=== PATIENT | male | born 1975 | race Caucasian/White ===

== ENCOUNTER 2020-01-04 07:04 | Inpatient (IN) | payer MEDICAID, SELFPAY ==
[2020-01-04] VITALS (29 sets, daily range): BP systolic 122–229; BP diastolic 38–137; PULSE 71–130; RESP 14–34; TEMP 36.1–36.8; O2SAT 77–99; BMI 26.4; BMI 24.7
--- NOTE | 2020-01-04 | XR_ITS ---
EXAMINATION: XR CHEST CLINICAL INFORMATION: Shortness of breath COMPARISON: Previous chest x-rays most recent 09/26/2019 TECHNIQUE: Frontal view of the chest was obtained. FINDINGS: The cardiac silhouette is enlarged but stable. Mediastinal contours are unremarkable. There is new bilateral perihilar airspace disease. Differential would include pulmonary edema, pneumonia and in the right clinical setting, pulmonary hemorrhage. There is no pleural effusion. Bony structures are unremarkable. IMPRESSION: Enlarged cardiac silhouette and bilateral perihilar airspace disease. Differential would include pulmonary edema, pneumonia and in the right clinical setting pulmonary hemorrhage.
--- NOTE | 2020-01-04 07:21 | ED_ITS ---
HPI - SOB/Dyspnea General Chief Complaint: Dyspnea Stated Complaint: diff breathing Time Seen by Provider: 01/04/20 07:21 Related Data Allergies Allergy/AdvReac Type Severity Reaction Status Date / Time heparin [HEPARIN] Allergy Intermediate NAUSEA/VOMI Verified 01/04/20 07:39 TING Penicillins [PENICILLINS] Allergy Intermediate SWELLING Verified 01/04/20 07:39 zolpidem [From AMBIEN] Allergy Mild SWELLING Verified 01/04/20 07:39 penicillin V Allergy Unknown swelling Verified 02/25/19 00:00 Review of Systems Review of Systems: Yes all other systems are reviewed and are negative Constitutional: Constitutional: Denies body ache(s), Denies daytime sleepiness, Denies excessive sweating, Denies headache(s), Denies night sweats and Denies poor appetite Eyes: Eyes: Denies change in vision ENT: Denies dizziness and Denies headache(s) Cardiovascular: Cardiovascular: Denies chest pain, Denies chest pain at rest, Denies chest pain with activity, Reports dyspnea on exertion and Reports paroxysmal nocturnal dyspnea Respiratory: Respiratory: Reports dyspnea on exertion Gastrointestinal: Gastrointestinal: Reports no additional gastrointestinal complaints Genitourinary: Genitourinary: Reports no additional male genitourinary complaints Neurologic: Reports Abnormal speech present, Denies dizziness and Denies headache(s) Endocrine: Endocrine: Denies excessive sweating [facility] Past Medical History [facility] Narrative: Hypertension. Orthostatic hypotension. Hyperparathyroidism. End-stage renal disease on dialysis, on Sunday, Sunday and Sunday. Source: old records reviewed Medical History (Updated 01/04/20 @ 08:27 by Prema Mo MD) End stage renal disease on dialysis Hypertension Social History Social History Alcohol intake: never Smoking Status: Light tobacco smoker Use of substances other than those prescribed or required for medical reasons: Yes Substance Use Type: Marijuana Advance Directives: No Advance Directives Information Provided: No Physical Exam Vital Signs and I&O and Narrative: Vital Signs and I&O: Vital Signs Temp 97.7 F 01/04/20 07:53 Pulse 89 01/04/20 08:41 Resp 26 H 01/04/20 08:41 BP 169/100 H 01/04/20 08:41 Pulse Ox 95 01/04/20 08:41 Intake & Output 01/03/20 01/04/20 01/04/20 18:59 06:59 18:59 Weight 81.4 kg Body Mass Index 26.4 Const: General: in distress, anxious and diaphoretic Orientation/conscio usness: oriented to person, oriented to place, oriented to time and patient oriented x3 HENMT: Head: Yes normal to inspection Ears: hearing grossly normal bilaterally General nose exam: Normal external nose present Eyes: General: appearance normal, both eyes and all related structures Neck: Neck: Yes JVD Chest: Chest palpation & inspection: normal inspection of the chest Resp: Effort & Inspection: respiratory distress, tachypneic and uses accessory muscles Auscultation: rales ( Up to 50% of the lung ordonez bilaterally) bilateral and wheezes ( expiratory wheezing diffuse bilaterally.) Cardio: Jugular venous distension: JVD Rate: tachycardic GI: Inspection: Yes normal to inspection Palpation (GI): Soft to palpation, nontender, no guarding, not rigid, no masses and no pulsatile masses Percussion: Yes normal to percussion : General: Yes no CVA tenderness Back/Spine/Pelvis: Back: no CVA tenderness Skin: General skin exam: no rashes or lesions noted Neuro: General: oriented to person, oriented to place, oriented to time, patient oriented x3 and gait normal Cranial nerves: Yes CN's II-XII intact bilaterally Cognition (Neuro): normal cognition Speech: Abnormal speech present Gait exam (Neuro): Normal gait present Motor exam (neuro): 5/5 m otor strength present throughout Extrem: General: Yes normal to inspection Right lower extremity: edema Details: 2+ Left lower extremity: edema Details: 2+ Course Course Hospital Course: 44-year-old male end-stage renal disease on dialysis, patient missed his dialysis 3 days ago, patient woke up with a sudden and rapid progression of shortness of breath, patient initially was diaphoretic, hypertensive, in acute respiratory distress. Patient was put immediately on BiPAP impending intubation, patient was given 1/2 inch of nitro on the left chest wall, since patient does not make urine Lasix was not given. Reevaluation(s) Reevaluation #1: Patient still in acute respiratory distress, diaphoretic, working to breathe, patient is still on BiPAP awaiting for superintendent custodian janitor to call me. Time: 07:30 Reevaluation #2: Slight improvement of respiratory distress, less diaphoretic, intercostal retraction still present, still on BiPAP machine. Time: 07:45 Reevaluation #3: patient is better, still on BiPAP, no diaphoresis, no tachypne a, satting 99% on the BiPAP. The case discussed with superintendent custodian janitor Dr. Mireles recommended to admit the patient to ICU until he get the dialysis team ready for acute dialysis The case also discussed with Dr. cuellar who accepted the patient to ICU. Time: 08:18 Consultations Consultation #1: Trigonometry Teacher, Dr. Johnson Time: :19 Consultation #2: ICU intensive care doctor marco. Time: 08:19 Procedures EJ/Peripheral Line Neck L: Time Out Performed: Yes Skin Cleansed in Sterile Fashion: Yes Size (gauge): 18 IV Secured and Dressing Applied: Yes Patient Tolerated Procedure: well MDM - SOB/Dyspnea MDM Narrative Medical decision making narrative: So 44-year-old male end-stage renal disease came in with volume overload and difficulty breathing needed emergency dialysis, patient was put on BiPAP in the emergency department and was given nitro, pat ient showed improvement without dialysis. Case discussed with superintendent custodian janitor / intensive care. Patient came in with shortness of breath due to volume overload and missing dialysis, patient is tachypneic, tachycardic, hypoxic, with leukocytosis however patient felt that all his symptoms is not due to sepsis rather it is fluid overload. 1. Admit to ICU awaiting emergent dialysis. 2. Continue with BiPAP. 3. continue with nitro paste on the left chest wall. Differential Diagnosis Differential diagnosis: Likely acute exacerbation of chronic obstructive airways disease, congestive heart failure, pneumonia and pleural effusion Lab Data Attestation: I reviewed the patient's lab results. Result diagrams: 01/04/20 07:30 01/04/20 07:30 Labs: Lab Results 01/04/20 01/04/20 01/04/20 Range/Units 07:30 07:30 07:30 WBC 14.9 H (4.8-10.8) X10*3/uL RBC 4.09 L (4.60-5.80) X10*6/uL Hgb 11.1 L (14.0-18.0) g/dl Hct 37.4 L (42-52) % MCV 91.4 (80-98) fL MCH 27.1 (27.0-33.0) pg MCHC 29.7 L (31.0-36.0) g/dl RDW 17.3 H (11.0-16.0) % Plt Count 212 (160-400) X10*3/uL MPV 9.7 (9.4-12.4) fL Absolute Nucleated RBC 0.000 (0.0-0.012) X10*3/uL Nucleated RBC % (auto) 0.0 (0.0-0.2) /100WBC Sodium 141 (135-145) mmol/L Potassium 4.6 (3.3-5.1) mmol/l Chloride 104 (96-108) mmol/L Carbon Dioxide 15 L (22-29) mmol/L Anion Gap 27 H (12-20) BUN 47 H (9-16) mg/dL Creatinine 11.59 H* (0.5-1.4) mg/dL Estim Creat Clear Calc 8.0 Estimated GFR 5 Random Glucose 200 H (60-115) mg/dL Calcium 7.4 L (8.4-10.2) mg/dL Troponin I High Sens 38.3 H (<3.5-35.0) ng/L B-Natriuretic Peptide 6797 H (<100) pg/mL Imaging Data Chest x-ray: My impression: MPRESSION: Enlarged cardiac silhouette and bilateral perihilar airspace disease. Differential would include pulmonary edema, pneumonia and in the right clinical setting pulmonary hemorrhage. ECG Data Attestation: I personally reviewed and interpreted this ECG as follows: ECG interpretation date: 01/04/20 ECG interpretation time: 08:24 Interpretation: sinus tachycardia at 127 beats per minutes, left axis deviation, normal intervals, no ST-T changes. Critical Care Time Critical Care Time Critical Care Time: Yes Total Critical Care Time: 70 Attestation: I have spent critical care time of 70 minutes at the bedside monitoring patient's vital sign, and breathing. Discharge Plan Discharge Clinical Impression: End stage renal disease on dialysis, Hypertension, Congestive heart failure Patient Disposition: Admitted As Inpatient
[2020-01-04] MEDS: Nitroglycerin 2 % Oint 1 GM Packet 0.5 INCH TRANSDERMA ×2 (07:35→17:43)
[2020-01-04 07:55] LABS: Hematocrit 37.4 % (42-52); Hemoglobin 11.1 g/dl (14.0-18.0); Mean Corpuscular HGB Conc 29.7 g/dl (31.0-36.0); Mean Corpuscular Hemoglobin 27.1 pg (27.0-33.0); Mean Corpuscular Volume 91.4 fL (80-98); Mean Platelet Volume 9.7 fL (9.4-12.4); Platelet Count 212 X10*3/uL (160-400); Red Blood Count 4.09 X10*6/uL (4.60-5.80); Red Cell Distribution Width 17.3 % (11.0-16.0); White Blood Count 14.9 X10*3/uL (4.8-10.8)
--- NOTE | 2020-01-04 08:07 | PC.NURSE ---
PT CONTACTED, GIVEN UPDATE PER PT REQUEST. WES PEÑA [phone]
[2020-01-04 08:16] LABS: Troponin-I High Sensitivity 38.3 ng/L (<3.5-35.0)
[2020-01-04 08:17] LABS: Anion Gap 27 (12-20); Blood Urea Nitrogen 47 mg/dL (9-16); Calcium 7.4 mg/dL (8.4-10.2); Carbon Dioxide 15 mmol/L (22-29); Chloride 104 mmol/L (96-108); Estimated Glomerular Filt Rate 5; Glucose Random 200 mg/dL (60-115); Potassium 4.6 mmol/l (3.3-5.1); Sodium 141 mmol/L (135-145)
[2020-01-04 08:32] LABS: B Type Natriuretic Peptide 6797 pg/mL (<100)
--- NOTE | 2020-01-04 09:54 | MHC.CM.PN ---
pt lives alone in [facility]. he reports he is independent in his care. he is HD - m,w,f. he has HD- M,W,F. he has family that lives in the area and can help him should he need it, this will include a ride home at ar. pt denies the need for vna at ar. dc plan is home c cont. of HD - m,w,f. cm to cont. to follow.
[2020-01-04] MEDS: Morphine Sulfate 2 MG/ML CARTRIDGE IVPUSH (10:18)
--- NOTE | 2020-01-04 10:39 | PM.PNNEP ---
Physical Exam Vital Signs and I&O and Narrative: Vital Signs and I&O: Vital Signs Temp 98.0 F 01/04/20 09:13 Pulse 87 01/04/20 10:00 Resp 26 H 01/04/20 10:00 BP 168/105 H 01/04/20 10:00 Pulse Ox 95 01/04/20 10:00 Intake & Output 01/03/20 01/04/20 01/04/20 18:59 06:59 18:59 Intake Total 0 / 0 Output Total 0 / 0 Balance 0 / 0 Urine Output (Aver age ml/kg/hr) 0.00 Weight 73.9 kg Intake: Intake, Oral [place] unt 0 / 0 Output: Output, Urine Am ount 0 / 0 on BiPAP neck no JVP noted lungs crackles bilaterally s1s2 abd soft ext +edema, LUE AVF Body Mass Index 24.7 Assessment & Plan Assessment and plan (1) End stage renal disease on dialysis: Status: Acute (2) Congestive heart failure: Status: Acute (3) Hypertension: Status: Acute Assessment and Plan: urgent HD today via AVF HD nurse aware pt being tx to ICU for care dw ICU team malignant HTN CHF in a ESRD pt will plan for HD tomorrow as well on his regular schedule. HTN control, add IV HYdralazine to vasodilators consider new echo card and cardiology eval. Time Spent With Patient Time: Total time spent is greater than 50% in coordination of care (as documented) at patient's floor/unit and/or counseling patient:
[2020-01-04] MEDS: Flu Vacc QS2020-21(6mos up)/PF 0.5 ML SYRINGE IM (13:20)
--- NOTE | 2020-01-04 14:36 | PM.CCPN ---
Subjective Subjective Date of Service: 01/04/20 Interval History: [facility] Physical Exam Vital Signs and I&O and Narrative: Vital Signs and I&O: Vital Signs Temp 98.0 F 01/04/20 09:13 Pulse 72 01/04/20 14:00 Resp 15 01/04/20 14:00 BP 175/100 H 01/04/20 14:00 Pulse Ox 98 01/04/20 14:00 Intake & Output 01/03/20 01/04/20 01/04/20 18:59 06:59 18:59 Intake Total 0 / 0 Output Total 0 / 0 Balance 0 / 0 Urine Output (Aver age ml/kg/hr) 0.00 Weight 73.9 kg Intake: Intake, Oral [place] unt 0 / 0 Output: Output, Urine Am ount 0 / 0 Other: Meal Refused No Body Mass Index 24.7 Objective Data Labs CBC & Chem 7: 01/04/20 07:30 01/04/20 07:30 Labs: Laboratory Results - last 24 hr 01/04/20 01/04/20 01/04/20 07:30 07:30 07:30 WBC 14.9 H RBC 4.09 L Hgb 11.1 L Hct 37.4 L MCV 91.4 MCH 27.1 MCHC 29.7 L RDW 17.3 H Plt Count 212 MPV 9.7 Absolute Nucleated RBC 0.000 Nucleated RBC % (auto) 0.0 Sodium 141 Potassium 4.6 Chloride 104 Carbon Dioxide 15 L Anion Gap 27 H BUN 47 H Creatinine 11.59 H* Estim Creat Clear Calc 8.0 Estimated GFR 5 Random Glucose 200 H Calcium 7.4 L Troponin I High Sens 38.3 H B-Natriuretic Peptide 6797 H Progress Note: A&P Time Spent With Patient Time: Total time spent is greater than 50% in coordination of care (as documented) at patient's floor/unit and/or counseling patient:
--- NOTE | 2020-01-04 14:40 | PM.CCHP ---
History of Present Illness Date of Service: 01/04/20 Chief Complaint: Hypertensive crisis with acute pulmonary edema and acute resp failure. Mr. Rj Pack was admitted to ICU this morning with hypertensive crisis and pulmonary edema with acute respiratory failure after missing his dialysis session yesterday. The patient is a 44-year-old man with end-stage renal failure on dialysis via a left arm fistula. He has a h/o dialysis noncompliance and has had multiple previous episodes of acute pulmonary edema. The patient tells me he was supposed to have dialysis yesterday morning. The transport van was supposed to pick him up at 05:00, but did not come to get him until 17:00 yesterday so therefore he missed his dialysis session. He woke up this morning with sudden rapid progression of shortness of breath. The ambulance was called and he was brought into the ED. In the emergency department, the patient was in respiratory distress. Blood pressure was 229/131, with heart rate 128. The patient was diaphoretic, tachypneic, and using accessory muscles, with rales half up bilaterally and expiratory wheezes. He had jugular venous distension. The BNP was 6797. Chest x-ray showed gross pulmonary edema. The patient was put immediately on BiPAP pending intubation and was given 1/2 inch of nitropaste. He gradually improved, and his BP came down into the 150?s-170?s. He was tx to the ICU, where he underwent a full dialysis session. 5 L were taken off. After dialysis, we took the patient off BiPAP and he was breathing easy on 2 L oxygen by nasal cannula. Sat is 95-97%. See vital signs below. The patient was fully alert and oriented, and was able to give me a good history. The patient has no jugular venous distension, sitting up at about 40 degrees. Chest clear to auscultation other than a few scattered crackles. Heart rate and rhythm are regular, with normal-sounding S1 and S2, possible S4. Otherwise no murmurs. Abdomen is benign. The patient has no peripheral edema. LABORATORY DATA: As below. IMPRESSION: 1. End-stage renal failure, on hemodialysis. Non compliant with his hemodialysis regimen. 2. Hypertensive crisis. We?ll give him a dose of hydralazine and restart his amlodipine and Coreg. 3. Acute pulmonary edema/CHF. Rx with HD and afterload reduction. Nitrates prn. He?ll have another HD session tomorrow. 4. Acute hypoxemic respiratory failure. Resolved post-HD. Otherwise usual supportive care. Critical care time: 65 minutes. Review of Systems Constitutional: Constitutional: Denies headache(s) ENT: Denies dizziness and Denies headache(s) Neurologic: Reports Abnormal speech present, Denies dizziness and Denies headache(s) [facility] Past Medical History Medical History (Updated 01/04/20 @ 08:27 by Prema Mo MD) End stage renal disease on dialysis Hypertension Social History Social History Household Members: None Housing: Other Housing Other:: RENTS A ROOM Do you presently have visiting nurse or other home services: No Alcohol intake: never Smoking Status: Light tobacco smoker Smoked in Last 30 Days: Yes Patient Interested in Nicotine Replacement: No Patient Given Instructions on How to Stop Smoking: No Second Hand Smoke Exposure: No Use of substances other than those prescribed or required for medical reasons: Yes Substance Use Type: Marijuana Currently Displaying Signs/Symptoms of Drug Intoxication Withdrawal: No Any prior treatment program specific to substance use: No Have you been hit, kicked, punched, or otherwise hurt by someone within the past year? If so, by whom?: No Do you feel safe in your current relationship?: Yes Is there a partner from a previous relationship who is making you feel unsafe now?: No Are you made to feel afraid or neglected: No Advance Directives: No Advance Directives Information Provided: No Advance Directives on File: No Do you have thoughts of harming others: None Recently lost weight without trying: No service: No Current occupational status: unemployed Meds Allergies Allergy/AdvReac Type Severity Reaction Status Date / Time Penicillins [PENICILLINS] Allergy Intermediate SWELLING Verified 01/04/20 07:39 zolpidem [From AMBIEN] Allergy Mild SWELLING Verified 01/04/20 07:39 penicillin V Allergy Unknown swelling Verified 02/25/19 00:00 heparin [HEPARIN] AdvReac Intermediate NAUSEA/VOMI Verified 01/04/20 20:10 TING Home Medications Medication Instructions Recorded Confirmed Type albuterol sulfate [ProAir HFA] 2 puff INHALATION QID 01/04/20 01/04/20 History amlodipine 5 mg PO DAILY 01/04/20 01/04/20 History aspirin 81 mg PO DAILY 01/04/20 01/04/20 History carvedilol 25 mg PO BID 01/04/20 01/04/20 History famotidine 20 mg PO BID 01/04/20 01/04/20 History ropinirole 4 mg PO BEDTIME 01/04/20 01/04/20 History Physical Exam Vital Signs and I&O and Narrative: Vital Signs and I&O: Vital Signs Temp 98.0 F 01/04/20 09:13 Pulse 72 01/04/20 14:00 Resp 15 01/04/20 14:00 BP 175/100 H 01/04/20 14:00 Pulse Ox 98 01/04/20 14:00 Intake & Output 01/03/20 01/04/20 01/04/20 18:59 06:59 18:59 Intake Total 0 / 0 Output Total 0 / 0 Balance 0 / 0 Urine Output (Aver age ml/kg/hr) 0.00 Weight 73.9 kg Intake: Intake, Oral [place] unt 0 / 0 Output: Output, Urine Am ount 0 / 0 Other: Meal Refused No Body Mass Index 24.7 Neuro: Speech: Abnormal speech present Results Labs Labs: Laboratory Tests 01/04/20 01/04/20 01/04/20 07:30 07:30 07:30 WBC 14.9 H RBC 4.09 L Hgb 11.1 L Hct 37.4 L MCV 91.4 MCH 27.1 MCHC 29.7 L RDW 17.3 H Plt Count 212 MPV 9.7 Absolute Nucleated RBC 0.000 Nucleated RBC % (auto) 0.0 Sodium 141 Potassium 4.6 Chloride 104 Carbon Dioxide 15 L Anion Gap 27 H BUN 47 H Creatinine 11.59 H* Estim Creat Clear Calc 8.0 Estimated GFR 5 Random Glucose 200 H Calcium 7.4 L Troponin I High Sens 38.3 H B-Natriuretic Peptide 6797 H Critical Care Time Critical Care Time (minutes): 60
[2020-01-04] MEDS: Acetaminophen 325 MG TABLET 975 MG PO (15:22)
[2020-01-04] MEDS: HYDROmorphone HCl 0.5 MG/0.5 ML SYRINGE IVPUSH (15:23)
[2020-01-04] MEDS: 0.9 % Sodium Chloride Flush 3 ML SYRINGE 2 ML IVFLUSH (15:23)
[2020-01-04] MEDS: carvediloL 25 MG TABLET PO ×2 (15:23→20:20)
[2020-01-04] MEDS: amLODIPine Besylate 5 MG TABLET PO (15:23)
[2020-01-04] MEDS: hydrALAZINE HCl 20 MG/ML VIAL IVPUSH (15:39)
--- NOTE | 2020-01-04 17:33 | ECG_ITS ---
Test Reason : ?ST DEPRESSION Blood Pressure : / mmHG Vent. Rate : 079 BPM Atrial Rate : 079 BPM P-R Int : 168 ms QRS Dur : 108 ms QT Int : 508 ms P-R-T Axes : 045 -65 174 degrees QTc Int : 582 ms Normal sinus rhythm Possible Left atrial enlargement Left anterior fascicular block Marked T-wave abnormality, consider inferolateral ischemia Prolonged QT Abnormal ECG When compared with ECG of 04-JAN-2020 07:15, Vent. rate has decreased BY [address] now depressed in Lateral leads T wave inversion now evident in Inferior leads T wave inversion more evident in Anterolateral leads Referred By: Steven Cadena Electronically Signed By:KEM KINGSTON
--- NOTE | 2020-01-04 17:44 | PC.NURSE ---
? WORSENING ST DEPRESSION ON MONITOR - PATIENT ASLEEP AT THIS TIME - LALY PEREZ NOTIFIED - EKG ORDERED AND OBTAINED AND SEEN BY ANA RUFFIN - AUDREY AND TROP ORDERED STAT - NITRO 2% OINTMENT 0.5 APPLIED TO LEFT UPPER CHEST. PATIENT REPORTS NO CHEST DISCOMFORT WHEN AWOKEN FOR EKG. PATIENT CURRENTLY ASLEEP, SNORING. VSS - BP 129/73 (91), HR 76, 96% 2L NC, RR 18. PHLEBOTOMY NOTIFIED OF STAT LAB WORK. WILL CONTINUE TO MONITOR.
--- NOTE | 2020-01-04 18:46 | P.PNCC_ITS ---
Critical Care Event Note Summary Code activated: No Narrative: SubjectiveAround 6:00 p.m. this evening, the patient's nurse expressed her concern about the patient having diffuse T-wave inversions on the monitor. Upon review, it appears that the patient has had these all throughout the morning on the rhythm strips, however this appears to be a new change in comparison to the EKG that was obtained in the emergency room around 7:00 a.m. this morning. The patient who has a history of renal disease and is status post dialysis today, history of hypertension, hyperlipidemia and whose mother had a heart attack at age 56, reports no prior history of coronary disease. He does however mention that he has been having chest pain since 9:00 a.m. this morning localized on the right side, described as dull and achy as if somebody punched him, rated 5/10 at its worse, no nausea or vomiting, no arm or jaw pain, no back pain, no cough or sputum production. Has never had a blood clot in his legs or lungs. He did not take any medications to make it better or worse. Objective Current vital signs blood pressure 137/82, heart rate 76, respiratory rate 18,O2 sat 97% on room air, General: Alert oriented x3 no acute distress Skin: Intact, no lesions or rash HEENT: Normocephalic, atraumatic, extraocular movements intact, neck is supple, no lymphadenopathy. Buccal mucosa moist. Throat midline. Cardiac: Clear S1-S2, There is a 3+ systolic murmur noted at the left upper sternal border. No rubs or gallops.There is no reports of chest pain to palpation of the right or left chest wall. No pain with range of motion of the arms. Pulmonary: Clear to auscultation, no wheezes, rales or rhonchi. Abdomen: Protuberant, positive bowel sounds in all 4 quadrants. Soft, nontender, no rebound or guarding. No CVA tenderness. Musculoskeletal: Moving all 4 extremities upon request a major joints, no calf tenderness, no edema. Neurologic: As above, no focal deficits. Vascular: 2+ pulses upper and lower extremities distally. Repeat EKG shows SR, 79 bpm, no ST elevations, but there are slight depressions and diffuse T-wave inversions in the lateral leads which are new from the EKG from this morning at 7 am. Assessment / Plan: EKG changes and ongoing right side CP ====> r/o ACS his initial troponin in the emergency room was 38, now 137 after HD; this can be due to the hypert ensive emergency and fluid overload. Repeat troponin in 3 hours. Chemistry does not show any hyperkalemia. Baseline PTT will be ordered in case the patient needs anticoagulation. Patient is on nitroglycerin paste, aspirin, Coreg. I will give him a statin and consult Cardiology 0800 pm case discussed with the implementation lead Dr. Elise who agrees with the above, advices on continuing the above medications and if the repeat troponin shows another significant increase and the pt is still having CP, then he would support starting this patient on anticoagulation therapy. It is likely that the patient suffered a secondary OH but unlikely ACS. Bedside echo reveals slight akinesis of the right side of the heart. Left ventricular hypertrophy. 2+ tricuspid regurgitation. 1007 Repeat troponin is 141.2. Patient's current chest pain level is 0 to a 1, he states that at times he could feel a but the majority of the time is gone. The patient is still on nitroglycerin paste and blood pressure is now 139/84, heart rate 74, respirations 20, O2 sat 96% on room air. At this point I will hold off on heparin drip, it is likely that the patient simply had a secondary event due to fluid overload and hypertensive crisis. Case discussed with Dr. Nance who is aware of the above. Critical care time: 30 - 74 mins
[2020-01-04 19:04] LABS: Anion Gap 17 (12-20); Blood Urea Nitrogen 26 mg/dL (9-16); Calcium 7.5 mg/dL (8.4-10.2); Carbon Dioxide 27 mmol/L (22-29); Chloride 100 mmol/L (96-108); Creatinine Clr Calc Pharmacy 11.3; Estimated Glomerular Filt Rate 7; Glucose Random 144 mg/dL (60-115); Potassium 3.6 mmol/l (3.3-5.1); Sodium 140 mmol/L (135-145)
[2020-01-04 19:05] LABS: Troponin-I High Sensitivity 137.1 ng/L (<3.5-35.0)
[2020-01-04] MEDS: Acetaminophen 325 MG TABLET 650 MG PO (20:18)
[2020-01-04] MEDS: rOPINIRole HCL 2 MG TABLET 4 MG PO (20:19)
[2020-01-04] MEDS: Famotidine 20 MG TABLET PO (20:19)
[2020-01-04] MEDS: Atorvastatin Calcium 80 MG TABLET PO ×2 (20:26→21:30)
[2020-01-04 21:27] LABS: PTT Heparin Drip 41.3 SEC (53-77.9)
[2020-01-04 22:04] LABS: Troponin-I High Sensitivity 141.2 ng/L (<3.5-35.0)
[2020-01-05] VITALS (24 sets, daily range): BP systolic 125–175; BP diastolic 71–96; PULSE 64–84; RESP 13–24; TEMP 36.4–36.7; O2SAT 95–100; BMI 23.8
[2020-01-05] MEDS: 0.9 % Sodium Chloride Flush 3 ML SYRINGE 2 ML IVFLUSH ×3 (00:26→14:39)
[2020-01-05 05:41] LABS: Basophils Percent Auto 0.3 % (0-2); Hematocrit 30.8 % (42-52); Imm Gran Abs Auto 0.01 X10*3/uL (0.00-0.03); Imm Gran Pct Auto 0.1 % (0.0-0.4); Neutrophils Absolute Auto 5.8 X10*3/uL (2.0-8.3); PLT CLUMP 1; Red Cell Distribution Width 17.2 % (11.0-16.0); SCAN SMEAR FLAG 1
[2020-01-05 05:42] LABS: Eosinophils Absolute Auto 0.1 X10*3/uL (0.0-0.4); Eosinophils Percent Auto 1.2 % (0-4); Hemoglobin 9.8 g/dl (14.0-18.0); Lymphocytes Absolute Auto 0.8 X10*3/uL (1.2-4.9); Lymphocytes Percent Auto 10.2 % (20-40); Mean Corpuscular HGB Conc 31.8 g/dl (31.0-36.0); Mean Corpuscular Hemoglobin 27.1 pg (27.0-33.0); Mean Corpuscular Volume 85.3 fL (80-98); Mean Platelet Volume 9.2 fL (9.4-12.4); Monocytes Absolute Auto 0.7 X10*3/uL (0.1-1.2); Monocytes Percent Auto 9.1 % (2-11); Neutrophils Percent Auto 79.1 % (45-73); Platelet Count 157 X10*3/uL (160-400); Red Blood Count 3.61 X10*6/uL (4.60-5.80); White Blood Count 7.4 X10*3/uL (4.8-10.8)
[2020-01-05 05:45] LABS: MANUAL DIFF FLAG NO
[2020-01-05 06:06] LABS: Anion Gap 16 (12-20); Blood Urea Nitrogen 36 mg/dL (9-16); Calcium 7.1 mg/dL (8.4-10.2); Carbon Dioxide 26 mmol/L (22-29); Chloride 101 mmol/L (96-108); Creatinine Clr Calc Pharmacy 9.4; Estimated Glomerular Filt Rate 6; Glucose Fasting 99 mg/dL (60-99); Potassium 3.8 mmol/l (3.3-5.1); Sodium 139 mmol/L (135-145)
[2020-01-05 06:16] LABS: Troponin-I High Sensitivity 115.1 ng/L (<3.5-35.0)
--- NOTE | 2020-01-05 08:00 | ECG_ITS ---
Test Reason : RESP DISTRESS Blood Pressure : / mmHG Vent. Rate : 127 BPM Atrial Rate : 127 BPM P-R Int : 136 ms QRS Dur : 110 ms QT Int : 416 ms P-R-T Axes : 024 -65 083 degrees QTc Int : 604 ms Sinus tachycardia Possible Left atrial enlargement Left axis deviation Abnormal ECG When compared with ECG of 26-SEP-2019 16:52, Heart rate has decreased ST no longer depressed in Inferior leads Referred By: Steven Cadena Electronically Signed By:KEM KINGSTON
--- NOTE | 2020-01-05 08:46 | PM.PNNEP ---
Subjective Subjective Principal diagnosis: cardiorenal sydrome Interval history: seen on dialysis this am and feeling better. 5L UF yesterday, breathing better, no need for NiPPV at this time. Physical Exam Vital Signs and I&O and Narrative: Vital Signs and I&O: Vital Signs Temp 97.9 F 01/05/20 07:46 Pulse 78 01/05/20 07:46 Resp 22 H 01/05/20 07:46 BP 151/87 H 01/05/20 07:46 Pulse Ox 96 01/05/20 07:46 Intake & Output 01/04/20 01/05/20 01/05/20 18:59 06:59 18:59 Intake Total 320 / 1500 1180 / 1500 180 / 180 Output Total 5000 / 5700 700 / 5700 Balance -4680 / -4200 480 / -4200 180 / 180 Urine Output (Aver age ml/kg/hr) 0.00 0.79 0.82 Weight 73.9 kg 71 kg Intake: Intake, Oral [place] unt 320 / 1500 1180 / 1500 180 / 180 Intake, Oral Sup plement Amount 0 / 0 Output: Output, Urine Am ount 0 / 700 700 / 700 Output, Other Am ount 5000 / 5000 Other: Meal Refused No NPO No Dinner % Eaten 100% 100% Evening Snack % Eaten 100 Diabetic Snack % Eaten 25 Urine ANURIC Urine Color ANURIC Last Bowel Movem ent 01/04/20 Body Mass Index 23.8 Const: General: cooperative and comfortable HENMT: Head: Yes normal to inspection Mouth: Normal oral and palatal mucosa present Eyes: Pupils: Pupil accommodation reflex normal Neck: Neck: Yes normal visual inspection and Yes JVD Chest: Chest palpation & inspection: normal inspection of the chest Resp: Effort & Inspection: normal respiratory effort Auscultation: diminished lung sounds Cardio: Jugular venous distension: JVD Heart sounds: S1 normal heart sound present and S2 normal heart sound present Bruits: no abdominal aortic bruits and no renal bruits Peripheral pulses: Peripheral pulses 2+ throughout GI: Palpation (GI): No Abdominal aortic bruit present, Soft to palpation and nontender Skin: Lesions: no lesions Extrem: General: Yes pedal edema Assessment & Plan Assessment and plan (1) End stage renal disease on dialysis: Problem details: m/w/f schedule Left arm AVF admit acute volume overload - 5 liter UF Sunday, likely another 4-5 liters today - BP improving but consider increasing amlodipine to 10 mg daily - will speak with dialysis unit regarding UF rates and what we can do to work with him better. Same issue with transplant status will be reviewed by me (for outpatient purposes) - if bp and volume ok after treatment today, would be ok with discharge once you are ok with cardiac assessment Status: Acute (2) Congestive heart failure: Problem details: clinically improving please see above Status: Acute (3) Hypertension: Problem details: given low EF history, would be fine with changing CCB to AUBREY inhibitor Status: Acute Time Spent With Patient Time: Total time spent is greater than 50% in coordination of care (as documented) at patient's floor/unit and/or counseling patient: Time with patient: 25 - 35 minutes
--- NOTE | 2020-01-05 09:19 | MHC.CLN ---
will change diet to 2gm Na Low K+, Low phos per Renal
--- NOTE | 2020-01-05 09:56 | PM.CCPN ---
Subjective Subjective Date of Service: 01/05/20 Interval History: 44-year-old male with end-stage renal disease and chronic hemodialysis for 9 years missed dialysis on Sunday was admitted in pulmonary edema obviously short of breath on Sunday and is receiving his 2nd dialysis today and has already had more than 5 L of volume removed and today is asymptomatic bedside echocardiogram shows mild concentric left ventricular hypertrophy with moderate to moderately severe global hypokinesis consistent with congestive cardiomyopathy an ejection fraction estimated 25-30% and no evidence of primary valve disease but clear-cut diastolic dysfunction as well as reduced systolic reserve Physical Exam Vital Signs and I&O and Narrative: Vital Signs and I&O: Vital Signs Temp 97.9 F 01/05/20 07:46 Pulse 67 01/05/20 09:00 Resp 17 01/05/20 09:00 BP 166/92 H 01/05/20 09:00 Pulse Ox 98 01/05/20 09:00 Intake & Output 01/04/20 01/05/20 01/05/20 18:59 06:59 18:59 Intake Total 320 / 1500 1180 / 1500 180 / 180 Output Total 5000 / 5700 700 / 5700 Balance -4680 / -4200 480 / -4200 180 / 180 Urine Output (Aver age ml/kg/hr) 0.00 0.79 0.82 Weight 73.9 kg 71 kg Intake: Intake, Oral [place] unt 320 / 1500 1180 / 1500 180 / 180 Intake, Oral Sup plement Amount 0 / 0 Output: Output, Urine Am ount 0 / 700 700 / 700 Output, Other Am ount 5000 / 5000 Other: Meal Refused No NPO No Dinner % Eaten 100% 100% Evening Snack % Eaten 100 Diabetic Snack % Eaten 25 Urine ANURIC Urine Color ANURIC Last Bowel Movem ent 01/04/20 Body Mass Index 23.8 awake and alert in no distress and on dialysis pupils equal and reactive to light with full range of motion no neck vein distension and good bilateral carotid upstrokes with no bruits good peripheral pulses with no edema cardiac exam with normal S1 normal S2 no heaves no gallops chest percussed equally with normal breath sounds no adventitious sounds abdomen benign with good bowel sounds and no organomegaly and it is nontender nondistended Const: General: cooperative, comfortable and no acute distress Nutritional Appearance: well nourished Orientation/consciousness: oriented to person, oriented to place and oriented to time HENMT: Head: Yes normal to inspection and Yes atraumatic Ears: hearing grossly normal bilaterally Eyes: General: appearance normal, both eyes and all related structures Pupils: Equal, round and reactive pupils present Neck: Neck: Yes full ROM and Yes no lymphadenopathy Carotids: normal carotid upstroke Lymphatic: no lymphadenopathy noted Chest: Chest palpation & inspection: normal inspection of the chest Resp: Effort & Inspection: normal respiratory effort Auscultation: clear to auscultation bilaterally Percussion: percussion normal Cardio: Jugular venous distension: no JVD Palpation: normal PMI Rate: regular rate Rhythm: regular rhythm Heart sounds: S1 normal heart sound present and S2 normal heart sound present Peripheral pulses: Peripheral pulses 2+ throughout GI: Inspection: Yes normal to inspection Palpation (GI): No hepatosplenomegaly present Percussion: No normal to percussion Auscultation: normal bowel sounds Skin: General skin exam: no rashes or lesions noted Neuro: General: oriented to person, oriented to place and oriented to time Cranial nerves: Yes CN's II-XII intact bilaterally, Yes Equal, round and reactive pupils present and Yes Bilaterally intact EOM present Extrem: General: Yes full ROM Left upper extremity: normal to inspection and full ROM Objective Data Labs CBC & Chem 7: 01/05/20 05:29 01/05/20 05:29 Labs: Laboratory Results - last 24 hr 01/04/20 01/04/20 01/04/20 18:16 18:16 21:07 WBC RBC Hgb Hct MCV MCH MCHC RDW Plt Count MPV Immature Gran % (Auto) Neut % (Auto) Lymph % (Auto) [place] % (Auto) Eos % (Auto) Baso % (Auto) Neut # (Auto) Lymph # (Auto) [place] # (Auto) Eos # (Auto) Baso # (Auto) Abs Immat Gran (auto) Absolute Nucleated RBC Nucleated RBC % (auto) PTT (Heparin Protocol) Sodium 140 Potassium 3.6 D Chloride 100 Carbon Dioxide 27 Anion Gap 17 BUN 26 H Creatinine 7.96 H* Estim Creat Clear Calc 11.3 Estimated GFR 7 Random Glucose 144 H Fasting Glucose Calcium 7.5 L Troponin I High Sens 137.1 H D 141.2 H 01/04/20 01/05/20 01/05/20 21:07 05:28 05:29 WBC 7.4 RBC 3.61 L Hgb 9.8 L Hct 30.8 L MCV 85.3 D MCH 27.1 MCHC 31.8 RDW 17.2 H Plt Count 157 L D MPV 9.2 L Immature Gran % (Auto) 0.1 Neut % (Auto) 79.1 H Lymph % (Auto) 10.2 L [place] % (Auto) 9.1 Eos % (Auto) 1.2 Baso % (Auto) 0.3 Neut # (Auto) 5.8 Lymph # (Auto) 0.8 L [place] # (Auto) 0.7 Eos # (Auto) 0.1 Baso # (Auto) 0.0 Abs Immat Gran (auto) 0.01 Absolute Nucleated RBC 0.000 Nucleated RBC % (auto) 0.0 PTT (Heparin Protocol) 41.3 L Sodium Potassium Chloride Carbon Dioxide Anion Gap BUN Creatinine Estim Creat Clear Calc Estimated GFR Random Glucose Fasting Glucose Calcium Troponin I High Sens 115.1 H 01/05/20 05:29 WBC RBC Hgb Hct MCV MCH MCHC RDW Plt Count MPV Immature Gran % (Auto) Neut % (Auto) Lymph % (Auto) [place] % (Auto) Eos % (Auto) Baso % (Auto) Neut # (Auto) Lymph # (Auto) [place] # (Auto) Eos # (Auto) Baso # (Auto) Abs Immat Gran (auto) Absolute Nucleated RBC Nucleated RBC % (auto) PTT (Heparin Protocol) Sodium 139 Potassium 3.8 Chloride 101 Carbon Dioxide 26 Anion Gap 16 BUN 36 H Creatinine 9.53 H* Estim Creat Clear Calc 9.4 Estimated GFR 6 Random Glucose Fasting Glucose 99 Calcium 7.1 L Troponin I High Sens Progress Note: A&P Assessment and plan (1) Congestive cardiomyopathy: Problem details: 1. Is to do another dialysis with significant ultrafiltration to reduce volume today possible addition of an ARB to his antihypertensive regime for his myopathy Status: Acute Assessment and Plan: continued ultrafiltration via dialysis today adding ARB Time Spent With Patient Time: Total time spent is greater than 50% in coordination of care (as documented) at patient's floor/unit and/or counseling patient: Time with patient: 25 - 35 minutes No Severe Sepsis: No Severe Sepsis
[2020-01-05] MEDS: Aspirin 81 MG TAB.CHEW PO (10:10)
[2020-01-05] MEDS: Losartan Potassium 25 MG TABLET PO (10:10)
[2020-01-05] MEDS: Acetaminophen 325 MG TABLET 650 MG PO (10:11)
[2020-01-05] MEDS: carvediloL 25 MG TABLET PO ×2 (10:11→21:10)
[2020-01-05] MEDS: amLODIPine Besylate 5 MG TABLET PO (10:11)
[2020-01-05] MEDS: Famotidine 20 MG TABLET PO ×2 (10:11→21:09)
--- NOTE | 2020-01-05 11:02 | P.CONCA_ITS ---
History of Present Illness History of Present Illness Date of Consult: January 05, 2020 Requesting physician: Bob Velazquez Consult reason: chest pain Chief complaint: diff breathing Narrative: Patient is a 44-year-old gentleman with a history of end-stage renal disease on hemodialysis. He last saw our nurse practitioner down short year in 2017. At that time his ejection fraction was about 10-15%. He was started on carvedilol around that time. He continues to be on that medication. In the interim, he is admitted with complaints of shortness of breath which in turn is due to missing a dialysis session. His blood pressure was apparently 229/131 mm Hg upon arrival. He was diaphoretic, tachypneic and using accessory muscles. He was put on BiPAP as well as nitro paste. Blood pressure came down. He was then transferred to the ICU. Underwent a full dialysis session. About father's were taken off. Then he was able to come off BiPAP. In the interim, there was concern about right-sided chest pain as well as abnormal EKG and troponins and hence we were been asked to see him. Patient has not been seen in our office in more than 2 years. He has not had any clear chest pains of anginal type or shortness of breath or in fact any other cardiac complaints during that time. Today, he is denying any specific cardiac complaints. Review of Systems Review of Systems: Yes all other systems are reviewed and are negative Cardiovascular: Comments: Denies any anginal-type symptoms or shortness of breath or palpitations or dizzy spells or syncopal episodes. [facility] Past Medical History Medical History Congestive cardiomyopathy End stage renal disease on dialysis Hypertension Family History Pertinent family history: Patient denies any significant cardiac issues in the family. Social History Social History Household Members: None Housing: Other Housing Other:: RENTS A ROOM Do you presently have visiting nurse or other home services: No Alcohol intake: never Smoking Status: Light tobacco smoker Smoked in Last 30 Days: Yes Patient Interested in Nicotine Replacement: No Patient Given Instructions on How to Stop Smoking: No Second Hand Smoke Exposure: No Use of substances other than those prescribed or required for medical reasons: Yes Substance Use Type: Marijuana Currently Displaying Signs/Symptoms of Drug Intoxication Withdrawal: No Any prior treatment program specific to substance use: No Have you been hit, kicked, punched, or otherwise hurt by someone within the past year? If so, by whom?: No Do you feel safe in your current relationship?: Yes Is there a partner from a previous relationship who is making you feel unsafe now?: No Are you made to feel afraid or neglected: No Advance Directives: No Advance Directives Information Provided: No Advance Directives on File: No Do you have thoughts of harming others: None Do you have a plan to hurt others: No Plan Recently lost weight without trying: No service: No Current occupational status: unemployed Meds Allergies Allergy/AdvReac Type Severity Reaction Status Date / Time Penicillins [PENICILLINS] Allergy Intermediate SWELLING Verified 01/04/20 07:39 zolpidem [From AMBIEN] Allergy Mild SWELLING Verified 01/04/20 07:39 penicillin V Allergy Unknown swelling Verified 02/25/19 00:00 heparin [HEPARIN] AdvReac Intermediate NAUSEA/VOMI Verified 01/04/20 20:10 TING Home Medications Medication Instructions Recorded Confirmed Type albuterol sulfate [ProAir HFA] 2 puff INHALATION QID 01/04/20 01/04/20 History amlodipine 5 mg PO DAILY 01/04/20 01/04/20 History aspirin 81 mg PO DAILY 01/04/20 01/04/20 History carvedilol 25 mg PO BID 01/04/20 01/04/20 History famotidine 20 mg PO BID 01/04/20 01/04/20 History ropinirole 4 mg PO BEDTIME 01/04/20 01/04/20 History Physical Exam Vital Signs and I&O and Narrative: Vital Signs and I&O: Vital Signs Temp 97.9 F 01/05/20 07:46 Pulse 75 01/05/20 10:11 Resp 16 01/05/20 10:00 BP 175/96 H 01/05/20 10:11 Pulse Ox 98 01/05/20 10:00 Intake & Output 01/04/20 01/05/20 01/05/20 18:59 06:59 18:59 Intake Total 320 / 1500 1180 / 1500 300 / 300 Output Total 5000 / 5700 700 / 5700 Balance -4680 / -4200 480 / -4200 300 / 300 Urine Output (Aver age ml/kg/hr) 0.00 0.79 0.82 Weight 162 lb 14.746 oz 156 lb 8.451 oz Intake: Intake, Oral [place] unt 320 / 1500 1180 / 1500 300 / 300 Intake, Oral Sup plement Amount 0 / 0 Output: Output, Urine Am ount 0 / 700 700 / 700 Output, Other Am ount 5000 / 5000 Other: Meal Refused No No NPO No No Breakfast % Eate n 100% Dinner % Eaten 100% 100% Evening Snack % Eaten 100 Diabetic Snack % Eaten 25 Urine ANURIC Urine Color ANURIC Last Bowel Movem ent 01/04/20 Body Mass Index 23.8 Const: General: cooperative, comfortable and no acute distress Orientation/consciousness: patient oriented x3 HENMT: Other: Unremarkable Neck: Neck: Yes normal visual inspection Chest: Chest palpation & inspection: normal inspection of the chest Resp: Auscultation: clear to auscultation bilaterally, no crackles and no wheezes Cardio: Jugular venous distension: no JVD Palpation: normal PMI Heart sounds: S1 normal heart sound present, S2 normal heart sound present, no gallops, no murmurs and no rubs GI: Palpation (GI): Soft to palpation Back/Spine/Pelvis: Other: unremarkable Skin: General skin exam: no rashes or lesions noted Neuro: General: patient oriented x3 Extrem: General: Yes no clubbing, cyanosis or edema Psych: Mental Status: mental status grossly normal Results Labs and Meds Result diagrams: 01/05/20 05:29 01/05/20 05:29 Lab results: Laboratory Results - last 24 hr 01/04/20 01/04/20 01/04/20 18:16 18:16 21:07 WBC RBC Hgb Hct MCV MCH MCHC RDW Plt Count MPV Immature Gran % (Auto) Neut % (Auto) Lymph % (Auto) [place] % (Auto) Eos % (Auto) Baso % (Auto) Neut # (Auto) Lymph # (Auto) [place] # (Auto) Eos # (Auto) Baso # (Auto) Abs Immat Gran (auto) Absolute Nucleated RBC Nucleated RBC % (auto) PTT (Heparin Protocol) Sodium 140 Potassium 3.6 D Chloride 100 Carbon Dioxide 27 Anion Gap 17 BUN 26 H Creatinine 7.96 H* Estim Creat Clear Calc 11.3 Estimated GFR 7 Random Glucose 144 H Fasting Glucose Calcium 7.5 L Troponin I High Sens 137.1 H D 141.2 H 01/04/20 01/05/20 01/05/20 21:07 05:28 05:29 WBC 7.4 RBC 3.61 L Hgb 9.8 L Hct 30.8 L MCV 85.3 D MCH 27.1 MCHC 31.8 RDW 17.2 H Plt Count 157 L D MPV 9.2 L Immature Gran % (Auto) 0.1 Neut % (Auto) 79.1 H Lymph % (Auto) 10.2 L [place] % (Auto) 9.1 Eos % (Auto) 1.2 Baso % (Auto) 0.3 Neut # (Auto) 5.8 Lymph # (Auto) 0.8 L [place] # (Auto) 0.7 Eos # (Auto) 0.1 Baso # (Auto) 0.0 Abs Immat Gran (auto) 0.01 Absolute Nucleated RBC 0.000 Nucleated RBC % (auto) 0.0 PTT (Heparin Protocol) 41.3 L Sodium Potassium Chloride Carbon Dioxide Anion Gap BUN Creatinine Estim Creat Clear Calc Estimated GFR Random Glucose Fasting Glucose Calcium Troponin I High Sens 115.1 H 01/05/20 05:29 WBC RBC Hgb Hct MCV MCH MCHC RDW Plt Count MPV Immature Gran % (Auto) Neut % (Auto) Lymph % (Auto) [place] % (Auto) Eos % (Auto) Baso % (Auto) Neut # (Auto) Lymph # (Auto) [place] # (Auto) Eos # (Auto) Baso # (Auto) Abs Immat Gran (auto) Absolute Nucleated RBC Nucleated RBC % (auto) PTT (Heparin Protocol) Sodium 139 Potassium 3.8 Chloride 101 Carbon Dioxide 26 Anion Gap 16 BUN 36 H Creatinine 9.53 H* Estim Creat Clear Calc 9.4 Estimated GFR 6 Random Glucose Fasting Glucose 99 Calcium 7.1 L Troponin I High Sens Assessment and Plan (1) Acute on chronic systolic and diastolic heart failure, NYHA class 3: Status: Acute he has had markedly diminished LVEF in the past. We will recheck an echocardiogram. Continue carvedilol. As Nephrology is okay, we can start AUBREY inhibitor or ARB. Potassium will need to be followed. Discussed with Dr. Velazquez. (2) End stage renal disease on dialysis: Status: Acute Per Nephrology. (3) Hypertension: Status: Acute As above, AUBREY inhibitor or ARB. We can also up titrate amlodipine as needed. Blood pressure seems much improved than from admission. (4) Precordial chest pain: Status: Acute He had some right-sided chest pain but none anymore. EKG however does show inverted T-waves in the lateral chest leads. Could have underlying coronary disease. We can start an echocardiogram. At some point, he will need a stress test. (5) Elevated troponin: Status: Acute Underlying CAD is possible. Stress test at some point .
--- NOTE | 2020-01-05 12:24 | MHC.CM.PN ---
Patient remains in ICU. Patient is from home. Goes to dialysis. Has not been complaint with dialysis. Patient has refused VNA. Anticipate patient will return home with outpatient dialysis. Continue to monitor for d/c needs.
--- NOTE | 2020-01-05 14:00 | CA_ITS ---
Transthoracic Echocardiogram Patient (Last, First, Middle): Skyler Pedraza, Gender: Male Date of : 1975 Age: 44 Procedure Date: 01/05/2020 Procedure Type: Transthoracic Echocardiogram Location: ICU Height: 172.72 cm Weight: 63.5 kg BSA: 1.76 m2 Heart Rate: bpm BP: 130 / 78 mmHg Table Machine Operator: Referring MD: Bob Velazquez MD Symptoms: Cardiomyopathy Study Quality: Good ECG Rhythm: Sinus Conclusions: - The left ventricular systolic function is severely decreased. The visually estimated ejection fraction is between 25-30%. - There is mild aortic valve regurgitation. - There is mild mitral valve regurgitation. Findings Left Ventricle Normal left ventricular cavity size. There is normal left ventricular wall thickness. The left ventricular systolic function is severely decreased. The visually estimated ejection fraction is between 25-30%. The calculated ejection fraction is 27% by biplane method. There is severe global hypokinesis. E/E prime ratio is >15, consistent with elevated filling pressures. Evidence suggests grade I (mild) diastolic dysfunction. Right Ventricle Normal right ventricular cavity size and systolic function. Atria The left atrium is moderately dilated. The right atrium is normal in size. Aortic Valve There is a normal trileaflet aortic valve. There is mild calcification of the aortic valve. There is no aortic valve stenosis. There is mild aortic valve regurgitation. Mitral Valve The mitral valve appears normal. There is mild mitral annular calcification. There is mild mitral valve regurgitation. There is no mitral valve stenosis. Pulmonic Valve The pulmonic valve was not well visualized. Tricuspid Valve Normal tricuspid valve structure. There is trace tricuspid valve regurgitation. The pulmonary artery systolic pressure is normal. Great Vessels The aortic annulus, sinuses of valsalva, and asc aorta are normal in size. Venous The inferior vena cava is normal in size and collapses greater than 50% with inspiration. Pericardium/Pleural There is no evidence of pericardial effusion. Prior Study Comparison Changes noted compared to prior study dated: 06/28/2017. LVEF is slightly higher. Measurements 2D Linear Measurements IVSd: 1.00 0.6-0.9/0.6-1.0 cm LVIDd: 6.59 3.9-5.3/4.2-5.9 cm LVIDd Index: 3.74 2.4-3.2/2.2-3.1 cm/m2 LVIDs: 5.42 2.0-3.6 cm LVPWd: 1.05 0.7-1.1 cm Ao Root: 3.40 2.1-3.5 cm LA Diam: 4.20 2.7-3.8/3.0-4.0 cm LAIDs Index: 2.39 1.5-2.3 cm/m2 LV Mass: 372.90 67-162/88-224 g LV Mass Index: 211.87 43-95/49-115 g/m2 LVOT Diam: 2.20 3.0+(-)1.3 cm 2D Systolic Function EF 4C: 25.60 >55% EF 2C: 32.20 >55% EF BiP: 27.40 >55% Mitral Valve MV Pk E: 0.60 MV PK A: 0.94 MV Decel Time: 155.00 E/A: 0.60 E'Lateral: 4.25 E'Medial: 2.80 E/E' Med: 21.30 E/E' Lat: 14.00 PHT: 45.00 MVA PHT: 4.89 Decel Grainger: 3.85 Aortic Valve AoV Pk Tr: 2.33 AoV Mn Tr: 1.58 AoV VTI: 0.46 AoV Pk Grad: 22.00 Aov Mn Grad: 12.00 KIRAN Cont.VTI: 1.85 LVOT LVOT Pk Tr: 1.29 LVOT Mn Tr: 0.83 LVOT VTI: 0.23 LVOT Pk Grad: 7.00 LVOT Mn Grad: 3.00 LVOT Diam: 2.20 LVOT Area: 3.80 Diastolic Function MV Pk E: 0.60 MV Pk A: 0.94 E/A: 0.60 E'Medial: 2.80 E/E' Med: 21.30 E' Laterial: 4.25 E/E' Lat: 14.00 Tricuspid Valve TR Pk Tr: 2.57 TR Pk Grad: 26.00 RA Press: 3.00 RVSP: 29.00 Great Vessels Aorta Ao Root-2D: 3.40 2.0-3.7 cm Ao Asc: 2.90 2.1-3.4 cm Pulmonary Valve PV Pk Tr: 1.18 Peak PV Grad: 6.00 Updated in Other Vendor System with Status of Final Flo Swartz MD electronically signed on 01/05/2020 4:31:51 PM with status of Final
[2020-01-05] MEDS: rOPINIRole HCL 2 MG TABLET 4 MG PO (21:09)
[2020-01-05] MEDS: Atorvastatin Calcium 80 MG TABLET PO (21:10)
[2020-01-06] VITALS (14 sets, daily range): BP systolic 120–145; BP diastolic 73–91; PULSE 65–77; RESP 12–48; O2SAT 97–100
[2020-01-06 06:00] LABS: Baso%MD 0.5 %; Eos%MD 2.3 %; Hematocrit 33.8 % (42-52); Hemoglobin 10.7 g/dl (14.0-18.0); IG%MD 0.2 %; Lymph%MD 18.3 %; Mean Corpuscular HGB Conc 31.7 g/dl (31.0-36.0); Mean Corpuscular Hemoglobin 26.8 pg (27.0-33.0); Mean Corpuscular Volume 84.5 fL (80-98); Mean Platelet Volume 10.4 fL (9.4-12.4); Mono%MD 12.6 %; Neut%MD 66.1 %; Platelet Count 173 X10*3/uL (160-400); Red Cell Distribution Width 16.9 % (11.0-16.0); White Blood Count 6.6 X10*3/uL (4.8-10.8)
[2020-01-06 06:22] LABS: Anion Gap 16 (12-20); Blood Urea Nitrogen 37 mg/dL (9-16); Carbon Dioxide 26 mmol/L (22-29); Chloride 99 mmol/L (96-108); Glucose Random 91 mg/dL (60-115); Potassium 4.1 mmol/l (3.3-5.1); Sodium 137 mmol/L (135-145)
[2020-01-06 06:23] LABS: Creatinine Clr Calc Pharmacy 11.5; Estimated Glomerular Filt Rate 8
--- NOTE | 2020-01-06 08:28 | PM.CCPN ---
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 with evidence of a congestive cardiomyopathy with borderline concentric LVH and diffuse hypokinesis estimated ejection fraction 25-30% with no primary valve or pericardial disease and he is on Coreg and amlodipine and losartan as antihypertensives Physical Exam Vital Signs and I&O and Narrative: Vital Signs and I&O: Vital Signs Temp 98.1 F 01/05/20 20:51 Pulse 72 01/06/20 07:00 Resp 16 01/06/20 07:00 BP 130/88 01/06/20 07:00 Pulse Ox 99 01/06/20 07:00 Intake & Output 01/05/20 01/06/20 01/06/20 18:59 06:59 18:59 Intake Total 420 / 660 240 / 660 Output Total 3500 / 3500 Balance -3080 / -2840 240 / -2840 Weight 71 kg Intake: Intake, Oral Alyssa unt 420 / 660 240 / 660 Intake, Oral Sup plement Amount 0 / 0 Output: Output, Other Am ount 3500 / 3500 Other: Meal Refused No NPO No Breakfast % Eate n 100% Lunch % Eaten 100% Dinner % Eaten 100% Evening Snack % Eaten 100 Body Mass Index 23.8 Const: General: cooperative and no acute distress Orientation/consciousness: patient oriented x3 Limitations: no limitations HENMT: Head: Yes normal to inspection and Yes atraumatic Mouth: Normal oral and palatal mucosa present and tongue normal Throat: Yes posterior oropharynx normal Eyes: General: appearance normal, both eyes and all related structures Visual Ordonez: normal visual ordonez by confrontation Pupils: Equal, round and reactive pupils present Neck: Neck: Yes normal visual inspection, Yes full ROM and Yes no lymphadenopathy Carotids: normal carotid upstroke Chest: Chest palpation & inspection: normal inspection of the chest Resp: Effort & Inspection: normal respiratory effort Auscultation: clear to auscultation bilaterally Percussion: percussion normal Cardio: Jugular venous distension: no JVD Palpation: normal PMI Rate: regular rate Rhythm: regular rhythm Heart sounds: S1 normal heart sound present and S2 normal heart sound present Peripheral pulses: Peripheral pulses 2+ throughout GI: Inspection: Yes normal to inspection Palpation (GI): Soft to palpation and No hepatosplenomegaly present Auscultation: normal bowel sounds Skin: General skin exam: no rashes or lesions noted Neuro: General: patient oriented x3 Cranial nerves: Yes Equal, round and reactive pupils present and Yes Bilaterally intact EOM present Cognition (Neuro): normal cognition Plantar Reflex Responses: downgoing: bilateral Extrem: Left upper extremity: normal to inspection Objective Data Labs CBC & Chem 7: 01/06/20 05:29 01/06/20 05:29 Labs: Laboratory Results - last 24 hr 01/06/20 01/06/20 05:29 05:29 WBC 6.6 RBC 4.00 L Hgb 10.7 L Hct 33.8 L MCV 84.5 MCH 26.8 L MCHC 31.7 RDW 16.9 H Plt Count 173 MPV 10.4 Absolute Nucleated RBC 0.000 Nucleated RBC % (auto) 0.0 Sodium 137 Potassium 4.1 Chloride 99 Carbon Dioxide 26 Anion Gap 16 BUN 37 H Creatinine 7.82 H* Estim Creat Clear Calc 11.5 Estimated GFR 8 Random Glucose 91 D Calcium 8.0 L Phosphorus 4.0 Magnesium 2.0 Progress Note: A&P Assessment and plan (1) Congestive cardiomyopathy: Problem details: 1. Is to do another dialysis with significant ultrafiltration to reduce volume today possible addition of an ARB to his antihypertensive regime for his myopathy Status: Acute Assessment and Plan: continued ultrafiltration via dialysis today adding ARB (2) Elevated troponin: Status: Acute Assessment and Plan: troponin nonspecific in face of renal failure and not indicative of unstable ischemia (3) Precordial chest pain: Status: Acute Assessment and Plan: related to volume overload (4) Acute on chronic systolic and diastolic heart failure, NYHA class 3: Status: Acute Assessment and Plan: clear-cut exacerbation from volume overload due to under dialysis and adding losartan as an empiric vaso dilator Time Spent With Patient Time: Total time spent is greater than 50% in coordination of care (as documented) at patient's floor/unit and/or counseling patient: Time with patient: 25 - 35 minutes No Severe Sepsis: No Severe Sepsis
[2020-01-06 09:42] LABS: Band Neutrophils Percent 0 % (3-5); Basophils Abs Manual 0.1 X10*3/uL (0.0-0.3); Basophils Percent Manual 1 % (0-1); Eosinophils Absolute Manual 0.2 X10*3/UL (0.0-0.8); Eosinophils Percent Manual 3 % (0-4); Lymphocytes Absolute Manual 1.1 X10*3/uL (0.6-4.8); Lymphocytes Percent Manual 16 % (20-40); Monocytes Absolute Manual 0.5 X10*3/uL (0.0-1.2); Monocytes Percent Manual 7 % (2-11); Neutrophils Absolute Manual 4.8 X10*3/uL (2.2-7.9); Neutrophils Percent Manual 73 % (45-73); Platelet Estimate NORMAL (NORMAL); Platelet Morphology Comment NORMAL; RBC Morphology NOTED
[2020-01-06 09:43] LABS: Macrocytosis 1+
[2020-01-06 09:44] LABS: Hypochromasia 1+; Microcytosis 1+; Polychromasia 1+
[2020-01-06 09:45] LABS: Acanthocytes 1+
[2020-01-06 09:48] LABS: Burr Cells 1+
[2020-01-06] MEDS: amLODIPine Besylate 5 MG TABLET PO (10:40)
[2020-01-06] MEDS: carvediloL 25 MG TABLET PO (10:41)
[2020-01-06] MEDS: Aspirin Enteric Coated 81 MG TABLET.DR PO (10:41)
[2020-01-06] MEDS: Losartan Potassium 25 MG TABLET PO (10:42)
[2020-01-06] MEDS: 0.9 % Sodium Chloride Flush 3 ML SYRINGE 2 ML IVFLUSH (10:42)
--- NOTE | 2020-01-06 10:43 | P.PNCA_ITS ---
Subjective Subjective Principal diagnosis: Congestive heart failure, hypertension Interval history: He states that he is feeling well. Denies any specific cardiac complaints like angina or shortness of breath. Otherwise, feels okay. Physical Exam Vital Signs and I&O: Vital Signs Temp 98.1 F 01/05/20 20:51 Pulse 72 01/06/20 10:42 Resp 17 01/06/20 10:00 BP 139/83 01/06/20 10:42 Pulse Ox 98 01/06/20 10:00 Intake & Output 01/05/20 01/06/20 01/06/20 18:59 06:59 18:59 Intake Total 420 / 660 240 / 660 120 / 120 Output Total 3500 / 3500 Balance -3080 / -2840 240 / -2840 120 / 120 Weight 156 lb 8.451 oz Intake: Intake, Oral Amount 420 / 660 240 / 660 120 / 120 Intake, Oral Supplement Amount 0 / 0 Output: Output, Other Amount 3500 / 3500 Other: Meal Refused No No NPO No No Breakfast % Eaten 100% 100% Lunch % Eaten 100% Dinner % Eaten 100% Evening Snack % Eaten 100 Body Mass Index 23.8 Const General: cooperative, comfortable and no acute distress Orientation/consciousness: patient oriented x3 HENND Other: Unremarkable Neck Neck: Yes normal visual inspection Chest Chest palpation & inspection: normal inspection of the chest Resp Auscultation: clear to auscultation bilaterally, no crackles and no wheezes Cardio Jugular venous distension: no JVD Palpation: normal PMI Heart sounds: S1 normal heart sound present, S2 normal heart sound present, no gallops, no murmurs and no rubs GI Palpation (GI): Soft to palpation Back/Spine/Pelvis Other: unremarkable Skin General skin exam: no rashes or lesions noted Neuro General: patient oriented x3 Extrem General: Yes no clubbing, cyanosis or edema Psych Mental Status: mental status grossly normal Progress Note: A&P Assessment and plan (1) Acute on chronic systolic and diastolic heart failure, NYHA class 3: Status: Acute (2) Precordial chest pain: Status: Acute (3) Elevated troponin: Status: Acute Assessment and Plan: Echocardiogram shows diminished LVEF, but slightly improved from last study. Continue Coreg. Losartan has been started as well. Blood pressure seems improved. He does not have any cardiac symptoms at all this time and he states that he is back to his normal self. Symptoms most likely precipitated because of missing dialysis. Could have underlying coronary disease as well and he will need a stress test which can be completed as an outpatient. Will arrange follow-up. Patient states that he is willing to keep appointments. Fall Risk Details Current Medications: Current Medications Generic Name Dose Route Start Last Admin Trade Name Freq PRN Reason Stop Dose Admin Acetaminophen 650 mg 01/04/20 20:09 01/05/20 10:11 Acetaminophen 325 Mg Tablet PO 650 mg Q6H PRN Administration Headache Albuterol Sulfate 2 puff 01/04/20 15:59 Albuterol Sulfate 90 Mcg 18 Gm Inhaler INHALE QID PRN wheezing Amlodipine Besylate 5 mg 01/04/20 15:00 01/06/20 10:40 Amlodipine Besylate 5 Mg Tablet PO 5 mg DAILY GERMAN Administration Protocol Aspirin 81 mg 01/05/20 09:00 01/06/20 10:43 Aspirin 81 Mg Tab.Chew PO Not Given DAILY GERMAN Aspirin 81 mg 01/06/20 10:30 01/06/20 10:41 Aspirin Enteric Coated 81 Mg Tablet.Dr PO 81 mg DAILY GERMAN Administration Atorvastatin Calcium 80 mg 01/04/20 21:00 01/05/20 21:10 Atorvastatin Calcium 80 Mg Tablet PO 80 mg BEDTIME GERMAN Administration Carvedilol 25 mg 01/04/20 15:00 01/06/20 10:41 Carvedilol 25 Mg Tablet PO 25 mg BID GERMAN Administration Protocol Famotidine 20 mg 01/04/20 21:00 01/06/20 10:41 Famotidine 20 Mg Tablet PO 20 mg BID GERMAN Administration Losartan Potassium 25 mg 01/06/20 09:00 01/06/20 10:42 Losartan Potassium 25 Mg Tablet PO 25 mg DAILY GERMAN Administration Protocol Ropinirole HCl 4 mg 01/06/20 21:00 Ropinirole Hcl 2 Mg Tablet PO BEDTIME GERMAN Sodium Chloride 2 ml 01/04/20 16:00 01/06/20 10:42 0.9 % Sodium Chloride Flush 3 Ml Syringe IVFLUSH 2 ml QSHIFT GERMAN Administration Time Spent With Patient Time: Total time spent is greater than 50% in coordination of care (as documented) at patient's floor/unit and/or counseling patient: Results Laboratory Findings 24 Hour Meds: 01/06/20 05:29 01/06/20 05:29 Labs: Laboratory Results - last 24 hr 01/06/20 01/06/20 05:29 05:29 WBC 6.6 RBC 4.00 L Hgb 10.7 L Hct 33.8 L MCV 84.5 MCH 26.8 L MCHC 31.7 RDW 16.9 H Plt Count 173 MPV 10.4 Absolute Nucleated RBC 0.000 Nucleated RBC % (auto) 0.0 Neutrophils % (Manual) 73 Band Neutrophils % 0 L Lymphocytes % (Manual) 16 L Monocytes % (Manual) 7 Eosinophils % (Manual) 3 Basophils % (Manual) 1 Neutrophils # (Manual) 4.8 Lymphocytes # (Manual) 1.1 Monocytes # (Manual) 0.5 Eosinophils # (Manual) 0.2 Basophils # (Manual) 0.1 Platelet Estimate NORMAL Plt Morphology Comment NORMAL RBC Morphology NOTED Polychromasia 1+ Hypochromasia 1+ Microcytosis 1+ Macrocytosis 1+ [place] Cells 1+ Acanthocytes (Spur) 1+ Sodium 137 Potassium 4.1 Chloride 99 Carbon Dioxide 26 Anion Gap 16 BUN 37 H Creatinine 7.82 H* Estim Creat Clear Calc 11.5 Estimated GFR 8 Random Glucose 91 D Calcium 8.0 L Phosphorus 4.0 Magnesium 2.0 Diagnostic Findings EKG: image reviewed Additional studies: Echocardiogram was reviewed.
--- NOTE | 2020-01-06 11:03 | PM.PNCARD ---
Subjective Subjective Interval history: He states that he is feeling good. No specific cardiac complaints at this time. No angina or shortness of breath. He feels that he is back to normal self. Physical Exam Vital Signs and I&O: Vital Signs Temp 98.1 F 01/05/20 20:51 Pulse 72 01/06/20 10:42 Resp 17 01/06/20 10:00 BP 139/83 01/06/20 10:42 Pulse Ox 98 01/06/20 10:00 Intake & Output 01/05/20 01/06/20 01/06/20 18:59 06:59 18:59 Intake Total 420 / 660 240 / 660 120 / 120 Output Total 3500 / 3500 Balance -3080 / -2840 240 / -2840 120 / 120 Weight 156 lb 8.451 oz Intake: Intake, Oral Amount 420 / 660 240 / 660 120 / 120 Intake, Oral Supplement Amount 0 / 0 Output: Output, Other Amount 3500 / 3500 Other: Meal Refused No No NPO No No Breakfast % Eaten 100% 100% Lunch % Eaten 100% Dinner % Eaten 100% Evening Snack % Eaten 100 Body Mass Index 23.8 Const General: cooperative, comfortable and no acute distress Orientation/consciousness: patient oriented x3 HENMT Other: Unremarkable Neck Neck: Yes normal visual inspection Chest Chest palpation & inspection: normal inspection of the chest Resp Auscultation: clear to auscultation bilaterally, no crackles and no wheezes Cardio Jugular venous distension: no JVD Palpation: normal PMI Heart sounds: S1 normal heart sound present, S2 normal heart sound present, no gallops, no murmurs and no rubs GI Palpation (GI): Soft to palpation Back/Spine/Pelvis Other: unremarkable Skin General skin exam: no rashes or lesions noted Neuro General: patient oriented x3 Extrem General: Yes no clubbing, cyanosis or edema Psych Mental Status: mental status grossly normal Progress Note: A&P Assessment and plan (1) Acute on chronic systolic and diastolic heart failure, NYHA class 3: Status: Acute (2) Precordial chest pain: Status: Acute (3) Elevated troponin: Status: Acute Assessment and Plan: Echocardiogram shows diminished LVEF, but slightly improved from last study. Continue Coreg. Losartan has been started as well. Blood pressure seems improved. He does not have any cardiac symptoms at all this time and he states that he is back to his normal self. Symptoms most likely precipitated because of missing dialysis. Could have underlying coronary disease as well and he will need a stress test which can be completed as an outpatient. Will arrange follow-up. Patient states that he is willing to keep appointments. Fall Risk Details Current Medications: Current Medications Generic Name Dose Route Start Last Admin Trade Name Freq PRN Reason Stop Dose Admin Acetaminophen 650 mg 01/04/20 20:09 01/05/20 10:11 Acetaminophen 325 Mg Tablet PO 650 mg Q6H PRN Administration Headache Albuterol Sulfate 2 puff 01/04/20 15:59 Albuterol Sulfate 90 Mcg 18 Gm Inhaler INHALE QID PRN wheezing Amlodipine Besylate 5 mg 01/04/20 15:00 01/06/20 10:40 Amlodipine Besylate 5 Mg Tablet PO 5 mg DAILY GERMAN Administration Protocol Aspirin 81 mg 01/05/20 09:00 01/06/20 10:43 Aspirin 81 Mg Tab.Chew PO Not Given DAILY GERMAN Aspirin 81 mg 01/06/20 10:30 01/06/20 10:41 Aspirin Enteric Coated 81 Mg Tablet.Dr PO 81 mg DAILY GERMAN Administration Atorvastatin Calcium 80 mg 01/04/20 21:00 01/05/20 21:10 Atorvastatin Calcium 80 Mg Tablet PO 80 mg BEDTIME EGRMAN Administration Carvedilol 25 mg 01/04/20 15:00 01/06/20 10:41 Carvedilol 25 Mg Tablet PO 25 mg BID GERMAN Administration Protocol Famotidine 20 mg 01/04/20 21:00 01/06/20 11:01 Famotidine 20 Mg Tablet PO Not Given BID GERMAN Losartan Potassium 25 mg 01/06/20 09:00 01/06/20 10:42 Losartan Potassium 25 Mg Tablet PO 25 mg DAILY GERMAN Administration Protocol Ropinirole HCl 4 mg 01/06/20 21:00 Ropinirole Hcl 2 Mg Tablet PO BEDTIME GERMAN Sodium Chloride 2 ml 01/04/20 16:00 01/06/20 10:42 0.9 % Sodium Chloride Flush 3 Ml Syringe IVFLUSH 2 ml QSHIFT GERMAN Administration Time Spent With Patient Time: Total time spent is greater than 50% in coordination of care (as documented) at patient's floor/unit and/or counseling patient: Time with patient: 15 - 24 minutes
--- NOTE | 2020-01-06 11:48 | MHC.CM.PN ---
Patient is discharged home with resumption of his outpatient dialysis. Patient can secure transport home.
--- NOTE | 2020-01-06 11:51 | PM.DS ---
DS: Providers Provider Date of admission: 01/04/20 09:07 Primary care physician: Unknown Physician Consults: 01/04/20 08:35 Consult to Nephrology Stat Consulting Provider: Kevin Rodriguez Reason for consultation: need diaylsis Has provider been notified: Yes 01/04/20 19:31 Consult to Cardiology Routine Consulting Provider: Ken Elise Reason for consultation: CP and abn trop Has provider been notified: No DS: Diagnosis Discharge Diagnosis (1) Acute on chronic systolic and diastolic heart failure, NYHA class 3: Status: Acute Problem details: congestive cardiomyopathy with moderate diffuse hypokinesis and no segmental wall motion abnormality with estimated ejection fraction 25-30% and no primary valve or pericardial disease added losartan 25 mg to antihypertensive regimen no time to follow-up so I am recommending this to be instituted by primary care with follow-up (2) Precordial chest pain: Status: Acute Problem details: precordial chest pain was due to marked fluid overload from having missed dialysis and presenting in pulmonary edema and once the volume was ultrafiltrate id chest pain went away troponin profile was flat and nonspecific reflecting his renal insufficiency (3) Elevated troponin: Status: Acute Problem details: a flat and insignificant troponin profile which is nonspecific and did not indicate and unstable ischemic issue purely reflecting his renal failure DS: Summary Hospital Course Hospital Course: 44-year-old male end-stage renal disease on dialysis, patient missed his dialysis 3 days ago, patient woke up with a sudden and rapid progression of shortness of breath, patient initially was diaphoretic, hypertensive, in acute respiratory distress. Patient was put immediately on BiPAP impending intubation, patient was given 1/2 inch of nitro on the left chest wall, since patient does not make urine Lasix was not given. Time Spent with Patient Time attestation: Total time spent providing and/or coordinating discharge services: Physical Exam Vital Signs and I&O and Narrative: Vital Signs and I&O: Vital Signs Temp 98.1 F 01/05/20 20:51 Pulse 72 01/06/20 10:42 Resp 17 01/06/20 10:00 BP 139/83 01/06/20 10:42 Pulse Ox 98 01/06/20 10:00 Intake & Output 01/05/20 01/06/20 01/06/20 18:59 06:59 18:59 Intake Total 420 / 660 240 / 660 120 / 120 Output Total 3500 / 3500 Balance -3080 / -2840 240 / -2840 120 / 120 Weight 71 kg Intake: Intake, Oral Alyssa unt 420 / 660 240 / 660 120 / 120 Intake, Oral Sup plement Amount 0 / 0 Output: Output, Other Am ount 3500 / 3500 Other: Meal Refused No No NPO No No Breakfast % Eate n 100% 100% Lunch % Eaten 100% Dinner % Eaten 100% Evening Snack % Eaten 100 Body Mass Index 23.8 DS: Data Data Completed and Pending Labs on day of discharge: Labs from last 24 hours 01/06/20 01/06/20 05:29 05:29 WBC 6.6 RBC 4.00 L Hgb 10.7 L Hct 33.8 L MCV 84.5 MCH 26.8 L MCHC 31.7 RDW 16.9 H Plt Count 173 MPV 10.4 Absolute Nucleated RBC 0.000 Nucleated RBC % (auto) 0.0 Neutrophils % (Manual) 73 Band Neutrophils % 0 L Lymphocytes % (Manual) 16 L Monocytes % (Manual) 7 Eosinophils % (Manual) 3 Basophils % (Manual) 1 Neutrophils # (Manual) 4.8 Lymphocytes # (Manual) 1.1 Monocytes # (Manual) 0.5 Eosinophils # (Manual) 0.2 Basophils # (Manual) 0.1 Platelet Estimate NORMAL Plt Morphology Comment NORMAL RBC Morphology NOTED Polychromasia 1+ Hypochromasia 1+ Microcytosis 1+ Macrocytosis 1+ [place] Cells 1+ Acanthocytes (Spur) 1+ Sodium 137 Potassium 4.1 Chloride 99 Carbon Dioxide 26 Anion Gap 16 BUN 37 H Creatinine 7.82 H* Estim Creat Clear Calc 11.5 Estimated GFR 8 Random Glucose 91 D Calcium 8.0 L Phosphorus 4.0 Magnesium 2.0 Discharge Plan Discharge Anticipated Discharge Date/Time: 01/06/20 11:37 Patient Disposition: Home, Self-Care Referrals: Physician,Unknown [Primary Care Provider] - Discharge Medications: Continued carvedilol 25 mg Tablet 25 mg PO BID RF: 0 amlodipine 5 mg Tablet 5 mg PO DAILY RF: 0 famotidine 20 mg Tablet 20 mg PO BID RF: 0 aspirin 81 mg Tablet 81 mg PO DAILY RF: 0 albuterol sulfate [ProAir HFA] 90 mcg/actuation Hfa Aerosol Inhaler 2 puff INHALATION QID RF: 0 ropinirole 4 mg Tablet 4 mg PO BEDTIME RF: 0 Discharge Orders: Discharge Order (Routine); Ordered 01/06/20 Ordered By: Bob Velazquez Activity on Discharge: As tolerated Activity Restrictions/Additional Instructions: he can ad wayne his activity follow-up with primary care physician regarding to additional medications started in the hospital but he did not allow us adequate follow-up time so that needs to be pursued as an outpatient- medicine 1 is losartan 25 mg daily which he seemed to tolerate and gave him better blood pressure control and the 2nd 1 is Lipitor at 80 mg once daily and he will need follow-up chemistries including CPK to document tolerance- these medicines with therefore not included in his discharge list we simply maintained his home list of medicine he is due for dialysis tomorrow on Sunday and that is up to him Visit Report Forms: Patient Portal Discharge page Care Plan Goals: meet his scheduled Sunday and Sunday dialysis to keep his follow-up appointment with both primary care and cardiology as well as his renal doctor and to take his antihypertensive medications Health Concerns: concerns are need for follow-up in relation to his congestive cardiomyopathy and heart failure and in addition his need to comply with his 3 time weekly dialysis schedule Plan of Treatment: thus far no change in his home medications and recommended additional medicines, namely losartan and Lipitor need to be ordered at the discretion and follow-up of primary care
--- NOTE | 2020-01-07 16:26 | CONS_ITS ---
DATE OF SERVICE: 01/04/2020 REASON FOR CONSULTATION: Evaluation of end-stage kidney disease, admitted with respiratory failure. PRIMARY PHARMACIST: Adam Maldonado MD. HISTORY OF PRESENT ILLNESS: Mr. De La Rosa is a very pleasant 44-year-old gentleman who undergoes intermittent hemodialysis on Sunday, Sunday, Sunday at the [facility] in [place], [place] under Dr. Adam Maldonado's care. He was admitted overnight for increased shortness of breath. Unfortunately, he developed severe respiratory distress, was put on a BiPAP. He was found to have elevated blood pressure up to 229/131. He received half an inch of nitroglycerin paste. His blood pressure has come down to 159/98, his oxygen saturations have been maintained at 97% on a BiPAP setting. According to the patient, he went to dialysis on Sunday. He had a full treatment, his blood pressure has been running high in recent weeks. The patient denies the use of illicit drugs or not taking his medications. He is now being transferred to intensive care unit for further evaluation. His chest x-ray showed pulmonary edema. 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 OUTPATIENT MEDICATIONS: Include famotidine 20 mg daily, Auryxia 210 mg 3 times a day with meals, amlodipine 2.5 mg daily, carvedilol 25 mg twice a day. ALLERGIES: LOPERAMIDE, PROCHLORPERAZINE, HEPARIN, VITAMIN D, LOPERAMIDE, ACETAMINOPHEN. PENICILLINS. AMBIEN. SOCIAL HISTORY: Lives at home with his family. Denies history of smoking cigarettes. Denies alcohol intake. Denies illicit drugs. FAMILY HISTORY: Noncontributory. REVIEW OF SYSTEMS: Reports increased weakness, fatigue over the past 24 hours, increased shortness of breath mostly with exertion, and last night with dyspnea at rest. Denies any fevers, cough, hemoptysis, hematemesis, bright red blood per rectum. No abdominal pain, nausea, vomiting, diarrhea. Denies chest pain. Rest of the 10-point review of systems negative. PHYSICAL EXAMINATION: GENERAL: He is alert, oriented x3. VITAL SIGNS: His blood pressure 159/98, oxygen saturation 97% on BiPAP. NECK: Reveals 4 cm jugular venous distention. LUNGS: Have crackles bilaterally. HEART: S1, S2 distant. ABDOMEN: Soft, nontender. Positive bowel sounds. No masses or megalies. EXTREMITIES: Showed trace ankle edema, left upper extremity. Well-developed AV fistula. Positive bruit and positive thrill. LABORATORY DATA AVAILABLE: White count 14,900, hemoglobin 11.1, normal platelets. Potassium 4.6, CO2 15. Troponin 38.3. BNP level 6900. Chest x-ray, bilateral infiltrates, consistent with pulmonary edema. IMPRESSIONS: Mr. Rj Pack is a very pleasant 44-year-old gentleman with known medical history of end-stage kidney disease who was admitted with an acute pulmonary edema. 1. End-stage renal disease. 2. Hypertensive nephrosclerosis/malignant hypertension. 3. Pulmonary edema. 4. Metabolic acidosis. RECOMMENDATIONS: The patient has responded well to BiPAP and half an inch of nitroglycerin paste. We will go ahead and arrange for urgent dialysis today 3 hours to remove fluid as tolerated and via Crit-Line monitor. We will use the fistula on his left arm and use 2 potassium baths. We will plan for continue to monitor in the intensive care unit and adjust his medications accordingly. Presently, he is on amlodipine and carvedilol. If need be, add hydralazine IV 20 mg q.6 hours. Hold for blood pressure below 120. He may deserve an echocardiogram and a cardiology consult given the substantial increase in troponin levels. With your permission, we will follow during the hospital stay. Best regards, MD ELMER Alonso/JOAQUIN / [phone]
[2020-01-13 12:46] LABS: FT4 by Equilib. Dialysis 1.3 ng/dL (0.9-2.2)
== END 2020-01-06 13:15 | disposition home or self-care (01) | DRG 194 ==
LOC: HO.ED 08:27 → HO.ICU 09:16 → HO.S3 01-06 10:41
PROVIDERS: Internal Medicine Nephrology; Physician Assistant; Physician Assistant Medical; Admitting Provider Anesthesiology; Emergency Provider Emergency Medicine; Visit Provider Family Medicine
DX: I13.2 Hypertensive heart and chronic kidney disease with heart failure and with stage 5 chronic kidney disease, or end stage renal disease (principal); J96.01 Acute respiratory failure with hypoxia; I42.0 Dilated cardiomyopathy; I16.9 Hypertensive crisis, unspecified; N18.6 End stage renal disease; Z99.2 Dependence on renal dialysis; I50.43 Acute on chronic combined systolic (congestive) and diastolic (congestive) heart failure; Z23 Encounter for immunization; Z88.0 Allergy status to penicillin; Z79.899 Other long term (current) drug therapy; Z91.15 Patient's noncompliance with renal dialysis
CPT/HCPCS: 36415; 71045; 80048; 83735; 83880; 84100; 84439; 84484; 85007; 85025; 85027; 85730; 90686; 90999; 93005; 93010; 93306; 96374; 99284; 99285; J1170; J2270

== ENCOUNTER 2020-02-03 05:36 | Inpatient (IN) | payer MEDICAID, SELFPAY ==
[2020-02-03] VITALS (20 sets, daily range): BP systolic 146–214; BP diastolic 87–113; PULSE 65–125; RESP 16–35; TEMP 36.3–37.1; O2SAT 78–100; BMI 22.7; BMI 25.0; BMI 21.8
[2020-02-03] MEDS: Magnesium Sulfate/H2O 2 GM/50 ML PIGGYBACK IV (05:40)
--- NOTE | 2020-02-03 05:40 | XR_ITS ---
EXAMINATION: CHEST 1 VIEW CLINICAL INFORMATION: Shortness of breath. COMPARISON: 01/04/2020. TECHNIQUE: An AP view of the chest is provided. FINDINGS: The cardiac silhouette is not enlarged. The mediastinal and hilar contours are unremarkable. There are neither pleural effusions nor pneumothoraces. There is bilateral perihilar infiltration as well as asymmetric diffuse interstitial prominence, most notable in the right lower lung zone. The osseous structures are unremarkable. XR/XR chest 1V IMPRESSION: Asymmetric appearance of diffuse interstitial prominence likely customer operations representative of asymmetric edema, though nonspecific.
[2020-02-03] MEDS: Nitroglycerin 2 % Oint 1 GM Packet 1 INCH TRANSDERMA (05:47)
[2020-02-03] MEDS: methylPREDNISolone Sod Succ/PF 125 MG/2 ML VIAL IVPUSH (05:48)
--- NOTE | 2020-02-03 05:53 | PC.NURSE ---
PT TO ROOM VIA AMBULANCE AFTER BEING SOB FROM HOME. PT WAS FOUND IN A STANDING POSITION UNABLE TO BREATH AND DIAPHORETIC. PT WAS ABLE TO SPEAK IN 2-3 WORD SENTENCES AND PO 88% WHEN EMS ARRIVED. NEB TX FINANCIAL AID COORDINATOR WITHOUT IMPROVEMENT. UPON ARRIVAL MD AT BEDSIDE. PT ON MONITOR WITH A HR OF 122, RESPIRATORY AT BEDSIDE FOR NEB TX AND BIPAP PER MD'S ORDERS. PT MEDICATED WITH SOLUMEDROL AND MAG IV PER EMAR.
--- NOTE | 2020-02-03 05:57 | PC.NURSE ---
X-RAY IN ROOM FOR CXR.
[2020-02-03] MEDS: Albuterol Sulfate (0.083%) 2.5 MG/3 ML VIAL.NEB 10 MG INHALE ×2 (05:59→06:04)
[2020-02-03] MEDS: Nitroglycerin/D5W 100 MG/250 ML INFUS..BTL 30 MG IVCONT (06:19)
[2020-02-03 06:21] LABS: MANUAL DIFF FLAG NO
[2020-02-03 06:22] LABS: Basophils Absolute Auto 0.1 X10*3/uL (0.0-0.2); Basophils Percent Auto 0.4 % (0-2); Eosinophils Absolute Auto 0.2 X10*3/uL (0.0-0.4); Eosinophils Percent Auto 1.3 % (0-4); Hematocrit 39.4 % (42-52); Hemoglobin 11.7 g/dl (14.0-18.0); Imm Gran Abs Auto 0.12 X10*3/uL (0.00-0.03); Imm Gran Pct Auto 0.7 % (0.0-0.4); Lymphocytes Absolute Auto 4.7 X10*3/uL (1.2-4.9); Lymphocytes Percent Auto 28.9 % (20-40); Mean Corpuscular HGB Conc 29.7 g/dl (31.0-36.0); Mean Corpuscular Hemoglobin 27.9 pg (27.0-33.0); Mean Platelet Volume 9.2 fL (9.4-12.4); Monocytes Absolute Auto 1.1 X10*3/uL (0.1-1.2); Monocytes Percent Auto 6.8 % (2-11); Neutrophils Absolute Auto 10.1 X10*3/uL (2.0-8.3); Neutrophils Percent Auto 61.9 % (45-73); Platelet Count 231 X10*3/uL (160-400); Red Blood Count 4.19 X10*6/uL (4.60-5.80); Red Cell Distribution Width 17.1 % (11.0-16.0); White Blood Count 16.3 X10*3/uL (4.8-10.8)
--- NOTE | 2020-02-03 06:26 | P.HPCC_ITS ---
History of Present Illness Date of Service: 02/03/20 Chief Complaint: short of breath Pt is a 44yo male with a past med hx of ESRD on dialysis, systolic & diastolic heart failure NYHA class 3, was BIBA to the ED c/o sob. Pt states his last dialysis was on Sunday, he was scheduled to go on Sunday but due to transpo rtation issues, it was changed to this morning at 6am. Pt states he woke up short of breath and called 911. Upon arrival, he was diaphoretic, BP was 230/136 , HR was 118, O2 sat was 68% and he was speaking in 2-3 word sentences. He was started on BiPAP, was given solumedrol and mag, bedside US revealed b lines. Labs are pending. Per ED doc, pt's respiratory status has improved dramatically since arrival. At my bedside exam, pt is sitting upright in the bed, is using respiratory muscles and is on BiPAP. His BP is down to 157/100, HR is 111, RR is 33 and O2 is 100 on BiPAP 100%FiO2 and 10/5. Pt admits to sob, chest pain but denies fever, any upper respiratory symptoms or gi symptoms such as nvd. Patient to be admitted to ICU for continued BiPAP, IV nitro and dialysis. ED will do EKG prior to moving pt up to ICU. Review of Systems Review of Systems: see HPI [facility] Past Medical History Medical History Congestive cardiomyopathy Elevated troponin End stage renal disease on dialysis Hypertension Social History Social History Household Members: None Housing: Other Alcohol intake: never Smoking Status: Unknown if ever smoked Smoked in Last 30 Days: No Second Hand Smoke Exposure: No Substance Use Type: Marijuana Advance Directives: No Advance Directives Information Provided: No service: No Current occupational status: unemployed Meds Allergies Allergy/AdvReac Type Severity Reaction Status Date / Time Penicillins [PENICILLINS] Allergy Intermediate SWELLING Verified 01/04/20 07:39 zolpidem [From AMBIEN] Allergy Mild SWELLING Verified 01/04/20 07:39 penicillin V Allergy Unknown swelling Verified 02/25/19 00:00 heparin [HEPARIN] AdvReac Intermediate NAUSEA/VOMI Verified 01/04/20 20:10 TING Home Medications Medication Instructions Recorded Confirmed Type albuterol sulfate [ProAir HFA] 2 puff INHALATION QID 01/04/20 01/04/20 History amlodipine 5 mg PO DAILY 01/04/20 01/04/20 History aspirin 81 mg PO DAILY 01/04/20 01/04/20 History carvedilol 25 mg PO BID 01/04/20 01/04/20 History famotidine 20 mg PO BID 01/04/20 01/04/20 History ropinirole 4 mg PO BEDTIME 01/04/20 01/04/20 History Physical Exam Vital Signs: Vital Signs: Vital Signs Pulse Resp Pulse Ox 02/03/20 06:10 35 H 02/03/20 05:41 123 H 30 H 78 L Body Mass Index 22.7 Const: General: cooperative, acute distress mild and respiratory and anxious; No diaphoretic or patient obtunded Orientation/consciousness: patient oriented x3 and No patient obtunded HENMT: Head: Yes normal to inspection General nose exam: Normal external nose present Face and sinus: Yes normal facial exam Eyes: General: appearance normal, both eyes and all related structures Neck: Neck: Yes normal visual inspection, Yes full ROM and Yes supple Chest: Chest palpation & inspection: normal inspection of the chest Resp: Effort & Inspection: able to speak in complete sentences, tachypneic, tripod positioning and uses accessory muscles (abdominal) Auscultation: no wheezes and bronchial breath sounds Cardio: Rate: tachycardic Rhythm: regular rhythm GI: Inspection: Yes normal to inspection Palpation (GI): Soft to palpation and nontender Skin: Other: mult tattoos Neuro: General: patient oriented x3 and No patient obtunded Extrem: General: Yes normal exam except as noted and Yes AV fistula (left arm) Results ECG Interpretation: EKG pending Imaging Chest x-ray: Attestation: I personally reviewed and interpreted this imaging study as follows: My impression: pulmonary edema Radiologist's impression: [address] [address] XRay Report Signed Patient: Sarahy Pedraza#: [id number] : 1975Acct:[id number] Age/Sex: 44 / MADM Date: 02/03/20 Loc: HO.ED Attending Dr: Ordering Physician: Trudy Doyle MD Date of Service: 02/03/20 Procedure(s): XR chest 1V Accession Number(s): [id number] cc: Trudy Doyle MD~ EXAMINATION: CHEST 1 VIEW CLINICAL INFORMATION: Shortness of breath. COMPARISON: 01/04/2020. TECHNIQUE: An AP view of the chest is provided. FINDINGS: The cardiac silhouette is not enlarged. The mediastinal and hilar contours are unremarkable. There are neither pleural effusions nor pneumothoraces. There is bilateral perihilar infiltration as well as asymmetric diffuse interstitial prominence, most notable in the right lower lung zone. The osseous structures are unremarkable. 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 Dictated By:KYLEE GUZMÁN MD Signed By:<Electronically signed by KYLEE GUZMÁN MD in OV>02/03/20 0616 Assessment and Plan (1) Hypertensive crisis: Status: Acute IV nitro drip, titrated (2) Pulmonary edema: Qualifiers: Chronicity: acute Qualified Code(s): J81.0 - Acute pulmonary edema Status: Acute see above, and continue BiPAP (3) End stage renal disease on dialysis: Problem details: missed dialysis 02/02/2020 Status: Acute consult to nephrology for dialysis tx today Critical Care Time Critical Care Time (minutes): 60
--- NOTE | 2020-02-03 06:40 | ECG_ITS ---
Test Reason : DIFFICULTY BREATHING Blood Pressure : / mmHG Vent. Rate : 096 BPM Atrial Rate : 096 BPM P-R Int : 186 ms QRS Dur : 108 ms QT Int : 420 ms P-R-T Axes : 059 -50 109 degrees QTc Int : 530 ms Normal sinus rhythm Possible Left atrial enlargement Left anterior fascicular block T wave abnormality, consider lateral ischemia Abnormal ECG When compared with ECG of 04-JAN-2020 17:17, T wave inversion no longer evident in Inferior leads T wave inversion less evident in Lateral leads Heart rate has increased Referred By: Trudy Doyle Electronically Signed By:NATASHA DUNLAP MD
--- NOTE | 2020-02-03 06:49 | ED_ITS ---
HPI - SOB/Dyspnea General Chief Complaint: Extremity Injury, Lower Stated Complaint: sob Time Seen by Provider: 02/03/20 05:39 Source: patient, EMS and old records reviewed Mode of arrival: EMS History of Present Illness HPI Narrative: This is a 44-year-old male who is brought in by EMS in severe respiratory distress initially being treated as a severe asthma exacerbation, with EMS having provided IV access with a single dose of albuterol and initially found patient to be in the 70s for oxygenation. Patient was only able to provide limited history due to respiratory distress. however, on speaking with the patient after his symptoms began to subside he states that his last dialysis was on Sunday and he was scheduled for yesterday however had difficulties with transportation and was rescheduled for today at 6:30 p.m.. Related Data Home Medications Medication Instructions Recorded Confirmed albuterol sulfate [ProAir HFA] 2 puff INHALATION QID 01/04/20 01/04/20 amlodipine 5 mg PO DAILY 01/04/20 01/04/20 aspirin 81 mg PO DAILY 01/04/20 01/04/20 carvedilol 25 mg PO BID 01/04/20 01/04/20 famotidine 20 mg PO BID 01/04/20 01/04/20 ropinirole 4 mg PO BEDTIME 01/04/20 01/04/20 Allergies Allergy/AdvReac Type Severity Reaction Status Date / Time Penicillins [PENICILLINS] Allergy Intermediate SWELLING Verified 01/04/20 07:39 zolpidem [From AMBIEN] Allergy Mild SWELLING Verified 01/04/20 07:39 penicillin V Allergy Unknown swelling Verified 02/25/19 00:00 heparin [HEPARIN] AdvReac Intermediate NAUSEA/VOMI Verified 01/04/20 20:10 TING Review of Systems Review of Systems: Pertinent positives and negatives as stated in HPI 10 point review of systems otherwise negative. [facility] Past Medical History Source: nursing notes reviewed Medical History Congestive cardiomyopathy Elevated troponin End stage renal disease on dialysis Hypertension Social History Social History Household Members: None Housing: Other Alcohol intake: never Smoking Status: Unknown if ever smoked Smoked in Last 30 Days: No Second Hand Smoke Exposure: No Substance Use Type: Marijuana Advance Directives: No Advance Directives Information Provided: No service: No Current occupational status: unemployed Physical Exam Vital Signs: Vital Signs: Vital Signs Pulse Resp Pulse Ox 02/03/20 06:10 35 H 02/03/20 05:41 123 H 30 H 78 L Body Mass Index 22.7 VITAL SIGNS: Reviewed. GENERAL: Well developed, well nourished, in no acute distress. HEAD: Normocephalic/atraumatic, EYES: PERRLA, EOMI intact without pain, no nystagmus/pallor/icterus noted EARS: Ext canals without abnormality, TMs non-bulging and non-erythematous NOSE: Nares patent bilateral OROPHARYNX: no oral lesions noted, posterior pharynx clear and non-erythematous without noted tonsillar enlargement/erythema/exudates NECK: Supple, no adenopathy LUNGS: coarse rales throughout diffusely, severe work of breathing with the use of accessory muscles,tripod,. No adventitious sounds or accessory muscle use. SpO2<78> ED bedside ultrasound: Extensive B-lines demonstrated throughout bilaterally without noted pleural effusions and no pericardial effusion. CARDIOVASCULAR: Regular rate and rhythm without noted murmurs, no JVD or lower extremity edema. ABDOMEN: Soft, non-tender, non-distended with bowel sounds. No rigidity. No guarding. No palpable masses or hernias noted MUSCULOSKELETAL: No tenderness, deformities, or effusions noted on gross inspection. EXTREMITIES: No cyanosis, clubbing or edema. SKIN: Diaphoretic, Inspection of the skin reveals no rashes, ulcerations, j aundice, pallor, or petechiae. NEUROLOGIC: Alert and oriented x 4. Strength and sensation to light touch were grossly intact x 4. Course Course Course Narrative: This is a 44-year-old male with history and clinical presentation consistent with hypertensive crisis and subsequent pulmonary edema. Initially on arrival he was treated as severe asthma exacerbation with the administration of Solu-Medrol, hour long albuterol treatment as well as 2 g of Mag. After obtaining the bedside ultrasound patient was then placed on BiPAP with improvement of oxygenation into the 90s, given 1 in of nitropaste with repeat blood pressure minimally improving. Patient initially started on nicardipine drip, but after discussing the case with mitten stitcher he was switched to a nitro drip starting at 200mcg/minute with good improvement of blood pressure and subsequent improvement in breathing with the ability to complete sentences. MDM - SOB/Dyspnea Lab Data Result diagrams: 02/03/20 06:16 02/03/20 06:16 ECG Data Attestation: I personally reviewed and interpreted this ECG as follows: Prior ECG tracings: available for review ( 01/04/2020 no acute changes on comparison) Interpretation: normal sinus rhythm, HR-96, no evidence of acute ischemia, VT within normal limits Critical Care Time Critical Care Time Critical Care Time: Yes Total Critical Care Time: 45 Attestation: I personally attest to this time spent taking care of the patient. Discharge Plan Discharge Clinical Impression: Hypertensive crisis Pulmonary edema Qualifiers: Chronicity: acute Qualified Code(s): J81.0 - Acute pulmonary edema Patient Disposition: Admitted As Inpatient
[2020-02-03 07:06] LABS: INTERNATIONAL NORM RATIO 1.1 (0.9-1.1); Prothrombin Time 13.2 SEC (10.8-13.0)
[2020-02-03 07:06] LABS: Alanine Aminotransferase 44 U/L (0-40); Albumin Level 4.1 g/dL (3.5-5.0); Alkaline Phosphatase 178 U/L (39-117); Anion Gap 32 (12-20); Aspartate Amino Transferase 40 U/L (5-37); Bilirubin Total 0.6 mg/dL (0.0-1.0); Blood Urea Nitrogen 57 mg/dL (9-16); Calcium 6.8 mg/dL (8.4-10.2); Carbon Dioxide 12 mmol/L (22-29); Chloride 107 mmol/L (96-108); Creatinine Clr Calc Pharmacy 6.9; Estimated Glomerular Filt Rate 4; Glucose Random 144 mg/dL (60-115); Potassium 4.9 mmol/l (3.3-5.1); Sodium 146 mmol/L (135-145); Total Protein 6.8 g/dL (6.5-8.0)
--- NOTE | 2020-02-03 07:08 | PC.NURSE ---
report given to ASHER Choudhary
[2020-02-03 07:12] LABS: Lactic Acid 9.7 mmol/L (0.5-2.0)
[2020-02-03 07:57] LABS: SARS COV2 PCR INHOUSE NEGATIVE (Negative)
--- NOTE | 2020-02-03 08:05 | PC.NURSE ---
REPORT GIVEN AT END OF PREVIOUS SHIFT. NO CHANGES IN STATUS. COVID STILL PENDING. ICU READY FOR PATIENT. NO CHANGES IN STATUS. NTG DRIP REMAINS AT 200MCG WITH NO SIGNIFICANT CHANGES IN BP. TRANSPORTED TO ICU WITH THIS RN AND RT. TRANSFER OF CARE TO ICU STAFF W/O INCIDENT
[2020-02-03 08:47] LABS: Reflex Lactate? Lactic Acid Added
--- NOTE | 2020-02-03 09:50 | W.PM.DNNEP ---
Subjective Subjective This patient was seen during dialysis. Physical Exam Vital Signs: Vital Signs: Vital Signs Temp Pulse Resp BP Pulse Ox 02/03/20 09:19 92 02/03/20 09:00 89 21 H 153/89 H 93 02/03/20 08:21 96 28 H 156/97 H 93 02/03/20 08:04 97.4 F 100 27 H 160/106 H 91 L 02/03/20 07:25 98 28 H 155/89 H 100 02/03/20 06:59 98.8 F 65 18 151/99 H 99 02/03/20 06:40 111 H 32 H 156/103 H 100 02/03/20 06:20 111 H 32 H 194/106 H 100 02/03/20 06:10 35 H 02/03/20 05:41 123 H 30 H 78 L JVP 6 cms H20 lungs rales on bases s1s2 +s4 abd soft +BSs ext ++edema LUE AVF OK Neuro awake alert OX3 Body Mass Index 21.8 Assessment & Plan Assessment and plan (1) Hypertensive crisis: Problem details: continue with IV NTG as is, resume outpt oral antiHTN meds when able to take POs, wean off IV NTG as we remove fluids with dialysis and BP improves. Status: Acute (2) End stage renal disease on dialysis: Problem details: missed dialysis 02/02/2020 Status: Acute (3) Pulmonary edema: Problem details: urgent HD now Status: Acute Assessment and Plan: anticipate HD treatment tomorrow on his regular day. I communicated with outpt dialysis unit, regarding transportation coordination I also spoke to patient about restricting PO fluids on weekends low Na diet compliance with AntiHTN meds Time Spent With Patient Time: Total time spent is greater than 50% in coordination of care (as documented) at patient's floor/unit and/or counseling patient:
[2020-02-03 10:16] LABS: Cancel Lactic Acid Canceled
--- NOTE | 2020-02-03 10:24 | MHC.CLN ---
RECOMMEND CHANGING DIET TO 2GM NA LOW PHOS LOW K+ PER RENAL
--- NOTE | 2020-02-03 10:55 | CONS_ITS ---
DATE OF SERVICE: 02/03/2020 REASON FOR CONSULTATION: Evaluation of end-stage kidney disease, admitted with increased shortness of breath. REQUESTING PHYSICIAN: Intensive care unit. HISTORY OF PRESENT ILLNESS: Mr. Rj Pack is a very pleasant 44-year-old gentleman with known medical history of end-stage kidney disease on intermittent hemodialysis on Sunday, Sunday, and Sunday at the [facility], followed by my partner, Dr. Adam Maldonado. The patient has a longstanding history of hypertension, systolic and diastolic cardiomyopathy, who apparently missed his dialysis treatment yesterday. He reports that his did not show up, therefore, he did not make it to dialysis as he has no transportation, and early this morning he woke up with increased shortness of breath, diaphoretic. His blood pressure as per EMS was 230/136. His saturations were 68%. He was put on a BiPAP, brought into the emergency room where he was found to have a blood pressure 157/100. On BiPAP his oxygen saturation was up to 100%. He denied chest pain, fevers, or cough. He reported shortness of breath yesterday which worsened through the night and early this morning as mentioned above. In the emergency room, he was put on BiPAP, IV nitroglycerin, and was brought into the ICU for urgent dialysis. Since admission to the intensive care unit, his blood pressure is 157/100, heart rate of 120 per minute, oxygen saturation 100% on BiPAP 10/5. He is afebrile. He denies any chest pain at this time. PAST MEDICAL HISTORY: ESRD secondary to hypertension. Systolic and diastolic heart failure. Asthma. COPD. History of gastroesophageal reflux disease. OUTPATIENT MEDICATIONS: Albuterol 2 puffs q.4 hours p.r.n., amlodipine 5 mg daily, aspirin 81 mg daily, carvedilol 25 mg twice a day, famotidine 20 mg daily, and ropinirole 4 mg 1 tablet at bedtime. ALLERGIES: PENICILLIN, ZOLPIDEM, AND HEPARIN. SOCIAL HISTORY: Lives at home with his son. Denies history of using illicit drugs. Prior history of smoking. He quit years ago. Denies history of alcohol intake. FAMILY HISTORY: Noncontributory. REVIEW OF SYSTEMS: Presently, he reports shortness of breath at rest. Denies chest pain. Denies fevers, chills, cough, hemoptysis, hematemesis, or bright red blood per rectum. Denies abdominal pain. Denies diarrhea. Rest of the 10-point review of systems negative. PHYSICAL EXAMINATION: VITAL SIGNS: Blood pressure is 157/100, heart rate of 120 per minute, oxygen saturation 100% on BiPAP. HEENT: Oral moist mucosa. NECK: Reveals jugular venous distention in 6 cm of water. LUNGS: Decreased breath sounds bilaterally with expiratory rales. HEART: S1, S2. Positive S4. ABDOMEN: Soft, nontender. Positive bowel sounds. EXTREMITIES: Show 1 to 2+ ankle edema. Left upper extremity has well-developed AV fistula, positive thrill and bruit. LABORATORY DATA: Available, potassium 4.9, BUN 57, creatinine 14 mg/dL. Hemoglobin 11.7. EKG showed normal sinus rhythm, heart rate of 96 per minute, no evidence of ST-T wave changes. Normal intervals. Chest x-ray shows findings consistent with increased infiltrate with asymmetric appearance of diffuse prominence consistent with pulmonary edema. His white count is 16,000. Lactic acid is 9.7, bicarbonate 12, AST 40, ALT 44. IMPRESSIONS: 1. Mr. Rj Pack is a pleasant 44-year-old gentleman who unfortunately missed his dialysis treatment today due to transportation issues. He is in the emergency room with dyspnea on exertion, found with hypertensive emergency, as well as hypoxemia, put on BiPAP and nitroglycerin. His saturations are up to 100%. Clearly, he is in volume overload and decompensated congestive heart failure. He is admitted to the intensive care unit for urgent dialysis. 2. End-stage renal disease, missed his dialysis treatment. 3. Acute pulmonary edema. 4. Leukocytosis. 5. High anion gap metabolic acidosis. RECOMMENDATIONS: We will go ahead and arrange for urgent dialysis [facility]. Nursing team has been notified. We will do 2 potassium 2.5 calcium treatment with ultrafiltration as tolerated by hemodynamics. We will anticipate need for dialysis tomorrow in his regular day. In the meantime, he will be worked up by the intensive care unit to rule out acute coronary syndrome, rule out infectious processes as he has leukocytosis and elevated lactic acid levels. We will follow during his hospitalization. Please resume his outpatient antihypertensives, in the meantime, continue with IV nitroglycerin as it is. If his blood pressure remains uncontrolled, might consider adding nicardipine drip. Presently, there is no need as he is clearly is decompensated heart failure. Vasodilators therapy is working very well for him at the present time. We will wean off oxygen requirements through the day as we are able to optimize fluid status via ultrafiltration. We will continue to follow. Thank you for allowing us to participate in his care. Best regards, MD ELMER Alonso/JOAQUIN / [phone]
--- NOTE | 2020-02-03 11:06 | PC.NURSE ---
Patient admitted to ICU 253 @ 0800. Patient alert and oriented. Came on bipap 10/5, titrated O2 from bipap to nonrebreather, to venti mask 55%, then 6 liters nasal cannula, O2sat remain mid 90's. Dyspnea on exertion, but otherwise resp status no issues when at rest, Lungs congested crackles throughout. Patient fistula left lower arm + thrill and bruit. Covid negative. Started on dialysis this morning, plan for dialysis again for tomorrow per Dr Parada (renal consult). Received patient from ER on Nitro drip 200mcg, titrated up to 400mcg r/t SBP staying 150's to 160's, goal 130's systolic. Patient up to commode - had large brown liquid BM. HR 80'S to 90's SR, PAC's.
[2020-02-03] MEDS: Nitroglycerin/D5W 100 MG/250 ML INFUS..BTL 60 MG IVCONT (11:35)
[2020-02-03] MEDS: LORazepam 0.5 MG TABLET PO (11:35)
[2020-02-03] MEDS: 0.9 % Sodium Chloride Flush 3 ML SYRINGE IVFLUSH ×3 (11:35→21:58)
[2020-02-03] MEDS: amLODIPine Besylate 5 MG TABLET PO (13:28)
[2020-02-03] MEDS: Acetaminophen 325 MG TABLET PO (13:28)
[2020-02-03] MEDS: Acetaminophen 325 MG TABLET 650 MG PO ×2 (13:28→21:49)
[2020-02-03] MEDS: carvediloL 25 MG TABLET PO ×2 (13:29→21:51)
--- NOTE | 2020-02-03 13:32 | PM.CCPN ---
Subjective Subjective Date of Service: 02/03/20 Interval History: Mr. Rj Pack was admitted to ICU this morning with hypertensive crisis and pulmonary edema with acute respiratory failure after missing his dialysis session yesterday. Notably, he was admitted to the ICU on Jan 03 for exactly the same reason. (See my H&P from that date.) The patient is a 44-year-old man with end-stage renal failure on dialysis via a left arm fistula. He has a h/o dialysis noncompliance and has had multiple previous episodes of acute pulmonary edema. The patient presented to the ED this morning in respiratory distress. Sat was in the 70s on room air. Blood pressure was 194/106. He had coarse rales throughout. He was placed on BiPAP, and then a nitroglycerin drip was added, and as soon as his blood pressure was better controlled, his breathing significantly improved, and he was transferred to the ICU for dialysis. Coming to the close of hemodialysis now in the ICU, his BP is 153/90. We just gave him his usual oral home meds ((amlodipine clean and Coreg). I?ve tapered his NTG down to 200ug. He is breathing easy with a sat of 90 7% on room air. IMPRESSION: 1. End-stage renal failure, on hemodialysis. Non compliant with his hemodialysis regimen. 2. Hypertensive crisis. We?ll stop his NTG drip shortly and add a dose of hydralazine if nec. 3. Acute pulmonary edema/CHF. Rx with hemodialysis and afterload reduction. Nitrates prn. He?ll have another HD session tomorrow. 4. Acute hypoxemic respiratory failure. Resolved post-HD. Otherwise usual supportive care. Stable for transfer to [facility]. I?ll sign out to the hospitalists. Critical care time: 40 minutes. Physical Exam Vital Signs: Vital Signs: Vital Signs Temp Pulse Resp BP Pulse Ox 02/03/20 13:29 83 153/90 H 02/03/20 13:28 82 153/90 H 02/03/20 13:00 77 20 165/92 H 95 02/03/20 12:00 91 16 162/97 H 96 02/03/20 11:00 80 17 153/87 H 95 02/03/20 10:00 101 H 16 159/108 H 90 L 02/03/20 09:19 92 02/03/20 09:00 89 21 H 153/89 H 93 02/03/20 08:21 96 28 H 156/97 H 93 02/03/20 08:04 97.4 F 100 27 H 160/106 H 91 L 02/03/20 07:25 98 28 H 155/89 H 100 02/03/20 06:59 98.8 F 65 18 151/99 H 99 02/03/20 06:40 111 H 32 H 156/103 H 100 02/03/20 06:20 111 H 32 H 194/106 H 100 02/03/20 06:10 35 H 02/03/20 05:41 123 H 30 H 78 L Body Mass Index 21.8 Objective Data Labs CBC & Chem 7: 02/03/20 06:16 02/03/20 06:16 Labs: Laboratory Results - last 24 hr 02/03/20 02/03/20 02/03/20 06:16 06:16 06:16 WBC 16.3 H RBC 4.19 L Hgb 11.7 L Hct 39.4 L MCV 94.0 MCH 27.9 MCHC 29.7 L RDW 17.1 H Plt Count 231 D MPV 9.2 L Immature Gran % (Auto) 0.7 H Neut % (Auto) 61.9 Lymph % (Auto) 28.9 [place] % (Auto) 6.8 Eos % (Auto) 1.3 Baso % (Auto) 0.4 Lymph # (Auto) 4.7 [place] # (Auto) 1.1 Eos # (Auto) 0.2 Baso # (Auto) 0.1 Abs Immat Gran (auto) 0.12 H Absolute Neuts (auto) 10.1 H Absolute Nucleated RBC 0.000 Nucleated RBC % (auto) 0.0 PT INR Sodium 146 H Potassium 4.9 Chloride 107 Carbon Dioxide 12 L Anion Gap 32 H BUN 57 H D Creatinine 14.67 H* Estim Creat Clear Calc 6.9 Estimated GFR 4 Random Glucose 144 H D Lactic Acid Calcium 6.8 L Total Bilirubin 0.6 AST 40 H ALT 44 H Alkaline Phosphatase 178 H Troponin I High Sens 44.0 H D Total Protein 6.8 Albumin 4.1 Coronavirus (PCR) 02/03/20 02/03/20 02/03/20 06:42 06:42 06:42 WBC RBC Hgb Hct MCV MCH MCHC RDW Plt Count MPV Immature Gran % (Auto) Neut % (Auto) Lymph % (Auto) [place] % (Auto) Eos % (Auto) Baso % (Auto) Lymph # (Auto) [place] # (Auto) Eos # (Auto) Baso # (Auto) Abs Immat Gran (auto) Absolute Neuts (auto) Absolute Nucleated RBC Nucleated RBC % (auto) PT 13.2 H INR 1.1 Sodium Potassium Chloride Carbon Dioxide Anion Gap BUN Creatinine Estim Creat Clear Calc Estimated GFR Random Glucose Lactic Acid 9.7 H* Calcium Total Bilirubin AST ALT Alkaline Phosphatase Troponin I High Sens Total Protein Albumin Coronavirus (PCR) NEGATIVE Progress Note: A&P Time Spent With Patient Time: Total time spent is greater than 50% in coordination of care (as documented) at patient's floor/unit and/or counseling patient: Total time spent with greater than 50% in coordination of care (as documented) at patient's floor/unit and/or counseling patient:: 0 Critical Care Time Critical Care Time (minutes): 30
--- NOTE | 2020-02-03 14:07 | PC.NURSE ---
Addendum entered by Chayo Muhammad, RN 02/03/20 14:23: TOTAL OF 6500 MLS TAKEN OFF DURING DIALYSIS Original Note: Assumed care of patient at 1100. Upon shift assessment pt currently in dialysis. A+Ox3 Drowsy, awakes upon verbal stimulation. Patient reporting being anxious and asking for something to calm him down. Dr. Nance aware. 0.5 mg PO ativan administered. SR W/ first degree on anesthesiologist. Fine crackles throughout. Patient sating high 90's on 6 liters NC. NC weened to 5 liters. Patient sating 96%. 4 liters taken off per storage specialist. At 1300 Patient reporting a headache. Ice pack applied. Dr. Nance aware. 975 PO tylenol administered with good effect. BP continues to be high ranging 150's-180's. Patient denies chest pain or palpitations. Nitro GTT titrated to 200 mcgs from [address] Nance. PO Coreg and Norvasc administered at 1328. Nitro GTT turned off at 1358 per MD. Patient titrated of NC, sating in high 90's at 1400. Patient resting comfortably in bed. Denies needs at this time. Will continue to monitor.
[2020-02-04] VITALS: BP 139/79; PULSE 74; RESP 18; TEMP 36.6; O2SAT 97
--- NOTE | 2020-02-04 | ECG_ITS ---
Test Reason : new onset afib Blood Pressure : / mmHG Vent. Rate : 126 BPM Atrial Rate : 127 BPM P-R Int : 000 ms QRS Dur : 100 ms QT Int : 376 ms P-R-T Axes : 000 -68 108 degrees QTc Int : 544 ms Accelerated Junctional rhythm with retrograde conduction Left anterior fascicular block Nonspecific ST and T wave abnormality Abnormal ECG Compared to previous ECG 03-Feb-2020 07:22:13 Junctional rhythm is new Heart rate has increased Referred By: Babar Fernando Electronically Signed By:NATASHA DUNLAP MD
[2020-02-04 03:17] VITALS: BP 142/80; PULSE 72; RESP 18; TEMP 36.9; O2SAT 97
--- NOTE | 2020-02-04 05:04 | PC.NURSE ---
at 415 noted pt has jchange in heart rhythm md notified ordered ekg was done showed accelerated junctional rhythm and hr in 120s md also ordered iv metoprelot 2.5 mg which is going to be given by [facility] nurse.pt is asymptomatic sleeping will monitor
[2020-02-04 05:17] VITALS: BP 142/101; PULSE 129
[2020-02-04] MEDS: Metoprolol Tartrate 5 MG/5 ML VIAL 2.5 MG IVPUSH (05:17)
[2020-02-04 08:00] VITALS: BP 165/75; PULSE 133; RESP 20; TEMP 37; O2SAT 96
[2020-02-04 08:53] VITALS: BP 165/75; PULSE 133
[2020-02-04] MEDS: carvediloL 25 MG TABLET PO (08:53)
--- NOTE | 2020-02-04 09:19 | MHC.CM.PN ---
Male 44 DX HTN CRISIS PULMONARY EDEMA NEEDS HD. Pt lives alone. He is independent all functional mobility. Requested copy HCP. HD [facility] [address] [facility]. DP DC to home resume HD . Transportation will be arranged by Pt. He may need shuttle.
--- NOTE | 2020-02-04 09:28 | PM.PNNEP ---
Subjective Subjective Interval history: tx out of ICU now at telemetry had 6 L fluid removed yesterday Physical Exam Vital Signs: Vital Signs: Vital Signs Temp Pulse Resp BP Pulse Ox 02/04/20 08:53 133 H 165/75 H 02/04/20 08:00 98.6 F 133 H 20 165/75 H 96 02/04/20 05:17 129 H 142/101 H 02/04/20 03:17 98.5 F 72 18 142/80 H 97 02/04/20 00:00 97.8 F 74 18 139/79 97 02/03/20 21:51 90 165/95 H 02/03/20 18:58 98.7 F 85 18 163/91 H 94 02/03/20 15:23 98.2 F 73 18 146/87 H 97 02/03/20 14:00 76 17 163/93 H 97 02/03/20 13:29 83 153/90 H 02/03/20 13:28 82 153/90 H 02/03/20 13:00 77 20 165/92 H 95 02/03/20 12:00 91 16 162/97 H 96 02/03/20 11:00 80 17 153/87 H 95 02/03/20 10:00 101 H 16 159/108 H 90 L oral moist mucosa lungs clear s1s2 abd soft +BSs ext less edema LUE AVF OK Body Mass Index 21.8 Assessment & Plan Assessment and plan (1) End stage renal disease on dialysis: Problem details: missed dialysis 02/02/2020, HD yesterday and today Status: Acute (2) Pulmonary edema: Problem details: resolved post HD Status: Acute (3) Hypertensive crisis: Problem details: Resume outpt BP meds Status: Acute Assessment and Plan: plsn to go home, return to his outpt setting, communicated transportation issues next HD Sunday resume ALL BP meds, keep strict Low Na diet Time Spent With Patient Time: Total time spent is greater than 50% in coordination of care (as documented) at patient's floor/unit and/or counseling patient:
--- NOTE | 2020-02-04 11:08 | P.CONCA_ITS ---
History of Present Illness History of Present Illness Date of Consult: February 04, 2020 Requesting physician: Hiro Parikh Consult reason: congestive heart failure Chief complaint: Hypertensive crisis,pulmonary edema,needs dialysis Narrative: 44-year-old gentleman with end-stage renal disease on hemodialysis Sunday, hypertension and cardiomyopathy. He has been on dialysis for many years and lost his kidney disease due to hypertensive nephropathy. He was admitted early December with similar presentation when he missed dialysis. He is now presenting again because on Sunday he missed dialysi s and then developed significantly elevated blood pressures and dyspnea and presented with asymmetric pulmonary edema. He was dialyzed urgently and is getting dialysis again today. Is feeling fine. He has no chest discomfort. Previously was seen by Dr. Swartz and plan was to do stress test on him. Review of Systems Review of Systems: No chest pain or dyspnea right now. He had shortness of breath when he presented. Yes all other systems are reviewed and are negative PMFSH Past Medical History Medical History (Updated 02/04/20 @ 11:16 by Mohinder Sylvester MD) Congestive cardiomyopathy Elevated troponin End stage renal disease on dialysis Hypertension Metal bone fixation hardware in place Social History Social History Household Members: None Housing: House Do you presently have visiting nurse or other home services: No Alcohol intake: never Smoking Status: Current every day smoker Tobacco Type: Cigarette Packs Per Day: 0.1 Cigarettes Per Day: 2.0 Years Smoked: 35 Smoked in Last 30 Days: Yes Patient Interested in Nicotine Replacement: No Patient Given Instructions on How to Stop Smoking: Yes Date Education Initiated: 02/03/20 Second Hand Smoke Exposure: No Use of substances other than those prescribed or required for medical reasons: Yes Substance Use Type: Marijuana Substance Use Frequency: Daily Last Used Substance: Days (ago) Currently Displaying Signs/Symptoms of Drug Intoxication Withdrawal: No Any prior treatment program specific to substance use: No Have you been hit, kicked, punched, or otherwise hurt by someone within the past year? If so, by whom?: No Do you feel safe in your current relationship?: No Is there a partner from a previous relationship who is making you feel unsafe now?: No Are you made to feel afraid or neglected: No Spiritual Healthcare Practices: none Denominational Healthcare Practices: Restorationism, no issues Cultural Healthcare Practices: n one Advance Directives: No Advance Directives Information Provided: No Do you have a plan to hurt others: No Plan Recently lost weight without trying: No service: No Current occupational status: unemployed Meds Allergies Allergy/AdvReac Type Severity Reaction Status Date / Time Penicillins [PENICILLINS] Allergy Intermediate SWELLING Verified 01/04/20 07:39 zolpidem [From AMBIEN] Allergy Mild SWELLING Verified 01/04/20 07:39 penicillin V Allergy Unknown swelling Verified 02/25/19 00:00 heparin [HEPARIN] AdvReac Intermediate NAUSEA/VOMI Verified 01/04/20 20:10 TING Home Medications Medication Instructions Recorded Confirmed Type albuterol sulfate [ProAir HFA] 2 puff INHALATION QID 01/04/20 01/04/20 History amlodipine 5 mg PO DAILY 01/04/20 01/04/20 History aspirin 81 mg PO DAILY 01/04/20 01/04/20 History carvedilol 25 mg PO BID 01/04/20 01/04/20 History famotidine 20 mg PO BID 01/04/20 01/04/20 History ropinirole 4 mg PO BEDTIME 01/04/20 01/04/20 History Physical Exam Vital Signs: Vital Signs: Vital Signs Temp Pulse Resp BP Pulse Ox 02/04/20 08:53 133 H 165/75 H 02/04/20 08:00 98.6 F 133 H 20 165/75 H 96 02/04/20 05:17 129 H 142/101 H 02/04/20 03:17 98.5 F 72 18 142/80 H 97 02/04/20 00:00 97.8 F 74 18 139/79 97 02/03/20 21:51 90 165/95 H 02/03/20 18:58 98.7 F 85 18 163/91 H 94 02/03/20 15:23 98.2 F 73 18 146/87 H 97 02/03/20 14:00 76 17 163/93 H 97 02/03/20 13:29 83 153/90 H 02/03/20 13:28 82 153/90 H 02/03/20 13:00 77 20 165/92 H 95 02/03/20 12:00 91 16 162/97 H 96 Body Mass Index 21.8 GENERAL APPEARANCE: in no acute distress, well developed, well nourished. HEENT: unremarkable. HEAD: normocephalic, atraumatic. NECK/THYROID: no carotid bruit, no jugular venous distention. SKIN: no suspicious lesions, warm and dry. HEART: no murmurs, regular rate and rhythm, S1, S2 normal. LUNGS: clear to auscultation bilaterally. ABDOMEN: normal, bowel sounds present, soft, nontender, nondistended. EXTREMITIES: no clubbing, cyanosis, or edema. Left arm AV fistula. PERIPHERAL PULSES: equal. NEUROLOGIC: nonfocal, alert and oriented. PSYCH: mood/affect full range. Results Labs and Meds Result diagrams: 02/03/20 06:16 02/03/20 06:16 Cardiology Testing Echo: report reviewed EKG Interpretation EKG Comments: ECG from February 02 showing sinus rhythm, left atrial enlargement, left axis deviation, lateral T-wave inversions. ECG February 03 showing junctional tachycardia at 126 beats per minute left axis deviation, lateral T-wave inversions. Assessment and Plan (1) Hypertensive crisis: Problem details: Resume outpt BP meds Status: Acute (2) Pulmonary edema: Qualifiers: Chronicity: acute Qualified Code(s): J81.0 - Acute pulmonary edema Problem details: resolved post HD Status: Acute (3) Congestive cardiomyopathy: Problem details: 1. Is to do another dialysis with significant ultrafiltration to reduce volume today possible addition of an ARB to his antihypertensive regime for his myopathy Status: Acute (4) End stage renal disease on dialysis: Problem details: missed dialysis 02/02/2020, HD yesterday and today Status: Acute (5) Junctional tachycardia: Status: Acute 44-year-old gentleman here for elevated blood pressures and pulmonary edema. This was in the setting of missing dialysis on Sunday. He previously has presented with similar episodes. He has uncontrolled hypertension and he lost his kidneys due to hypertensive nephropathy. He has undergone dialysis yesterday and is getting dialysis today. Clinically does not look in heart failure right now. His blood pressure is still elevated. Continue the carvedilol 25 mg twice a day. I think his amlodipine can be increased to 510 mg if his blood pressure post dialysis continues to be elevated. He had 4-1/2 hours of tachycardia overnight with heart rates in 130s. By EKG it looks like junctional tachycardia. On telemetry he is in sinus rhythm now. He has cardiomyopathy with EF of 20 25%. He will have further workup with Dr. Swartz as outpatient including stress testing. for the junctional tachycardia right now I think he should just continue the carvedilol. We can arrange cardiac event monitor for him as outpatient to see how frequently this happen. Thank you for allowing me to participate in the care of your patient. Please feel free to contact me if you have any questions.
--- NOTE | 2020-02-04 13:07 | P.DS_ITS ---
DS: Providers Provider Date of admission: 02/03/20 06:11 Primary care physician: Unknown Physician Consults: 02/03/20 06:19 Consult to Nephrology Stat Consulting Provider: Aneudy Rodriges Reason for consultation: pt needs dialysis 02/04/20 04:57 Consult to Cardiology Routine Consulting Provider: [facility] Reason for consultation: new onset afib Has provider been notified: No DS: Diagnosis Discharge Diagnosis (1) Hypertensive crisis: Status: Acute Problem details: Resume outpt BP meds (2) Pulmonary edema: Status: Acute Problem details: resolved post HD (3) Congestive cardiomyopathy: Status: Acute Problem details: 1. Is to do another dialysis with significant ultrafiltration to reduce volume today possible addition of an ARB to his antihypertensive regime for his myopathy (4) End stage renal disease on dialysis: Status: Acute Problem details: missed dialysis 02/02/2020, HD yesterday and today (5) Junctional tachycardia: Status: Acute DS: Summary Hospital Course Hospital Course: 44yo male with a past med hx of ESRD on dialysis, systolic & diastolic heart failure NYHA class 3, presented to ED with SOB after missing dialysis due to transportation isses and was noted to be have BP of 230/136 , HR was 118, O2 sat was 68% and he was speaking in 2-3 word sentences and CXR showed pulmonary edema. He wa sput on BiPAP and admitted to the ICU and required emergent dialysis for fluid removal. During hospitalizatio noted to have junctional tachycardia and given Metoprolol, this is a known issues and cardiology advises to continue Coreg and outpatient stress test. Presently is assymptomatic and will have dialysis today then go home. Advised to adhere to dialysis schedule and medication. Status at Discharge Functional status at discharge: independent ambulation Overall status at discharge: patient is back to baseline Time Spent with Patient Time attestation: Total time spent providing and/or coordinating discharge services: Time spent: Greater than 30 minutes Physical Exam Vital Signs: Vital Signs: Vital Signs Temp Pulse Resp BP Pulse Ox 02/04/20 08:53 133 H 165/75 H 02/04/20 08:00 98.6 F 133 H 20 165/75 H 96 02/04/20 05:17 129 H 142/101 H 02/04/20 03:17 98.5 F 72 18 142/80 H 97 02/04/20 00:00 97.8 F 74 18 139/79 97 02/03/20 21:51 90 165/95 H 02/03/20 18:58 98.7 F 85 18 163/91 H 94 02/03/20 15:23 98.2 F 73 18 146/87 H 97 02/03/20 14:00 76 17 163/93 H 97 02/03/20 13:29 83 153/90 H 02/03/20 13:28 82 153/90 H Body Mass Index 21.8 General: AO X 3, no acute distress Resp: CTA bilateral CVS: S1,S2,RRR GI: +BS, NT, no distention Skin: No rash Neuro: motor grossly intact Psych: appropriate affect DS: Data Data Completed and Pending Completed studies during hospitalization [Text1]: Procedures Assistance with Respiratory Ventilation, Less than 24 Consecutive Hours, Continuous Positive Airway Pressure (01/04/20) Performance of Urinary Filtration, Intermittent, Less than 6 Hours Per Day (01/04/20) Discharge Plan Discharge Anticipated Discharge Date/Time: 02/04/20 13:02 Patient Disposition: Home, Self-Care Referrals: Darline Simpson MD [Physician] - One Year (02/18/2020 9:30am. Please call and reschedule if you can't keep this appointment.) Discharge Medications: Continued carvedilol 25 mg Tablet 25 mg PO BID RF: 0 amlodipine 5 mg Tablet 5 mg PO DAILY RF: 0 famotidine 20 mg Tablet 20 mg PO BID RF: 0 aspirin 81 mg Tablet 81 mg PO DAILY RF: 0 albuterol sulfate [ProAir HFA] 90 mcg/actuation Hfa Aerosol Inhaler 2 puff INHALATION QID RF: 0 ropinirole 4 mg Tablet 4 mg PO BEDTIME RF: 0 Discharge Orders: Discharge Order (Routine); Ordered 02/04/20 Ordered By: Hiro Parikh Diet: advance to your usual diet Activity on Discharge: As tolerated Discharge Date/Time: 02/04/20 15:15 Visit Report Forms: Patient Portal Discharge page Care Plan Goals: Prevent rehospitalization for fluid overaload and miss dialysis Health Concerns: cardiovascular complications from elevated BP, heart failure Plan of Treatment: Go to dialysis as usual, take all your medication as prescribed and follow up with your Doctor in a week
--- NOTE | 2020-02-04 13:15 | MHC.CM.PN ---
DC today DP home no services resume HD --[address] [facility]. Private transportation.
== END 2020-02-04 15:15 | disposition home or self-care (01) | DRG 199 ==
LOC: HO.ED 06:23 → HO.ICU 06:38 → HO.IMC 14:14
PROVIDERS: Admitting Provider Anesthesiology; Emergency Provider Student in an Organized Health Care Education/Training Program; Visit Provider Internal Medicine
DX: I16.9 Hypertensive crisis, unspecified (principal); J96.01 Acute respiratory failure with hypoxia; I50.43 Acute on chronic combined systolic (congestive) and diastolic (congestive) heart failure; I42.0 Dilated cardiomyopathy; N18.6 End stage renal disease; I13.2 Hypertensive heart and chronic kidney disease with heart failure and with stage 5 chronic kidney disease, or end stage renal disease; F17.210 Nicotine dependence, cigarettes, uncomplicated; Z99.2 Dependence on renal dialysis; Z91.15 Patient's noncompliance with renal dialysis; Z20.828 Contact with and (suspected) exposure to other viral communicable diseases; Z71.6 Tobacco abuse counseling; Z88.0 Allergy status to penicillin; Z79.82 Long term (current) use of aspirin; Z79.899 Other long term (current) drug therapy
CPT/HCPCS: 36415; 71045; 80053; 83605; 84484; 85025; 85610; 90999; 93005; 96365; 96366; 96375; 99232; 99284; 99291; J2930; J3475; U0003

== ENCOUNTER 2020-06-10 11:09 | Outpatient (REF) | payer MEDICAID, SELFPAY ==
--- NOTE | ~2020-06-10 | XR_ITS ---
EXAMINATION: XR CHEST CLINICAL INFORMATION: +PPD COMPARISON: 02/03/2020 TECHNIQUE: 2 views of the chest were obtained. FINDINGS: Bilateral nipple piercings. The lungs are well expanded. There is no focal consolidation, edema, or effusion. No pneumothorax. The cardiomediastinal silhouette is within normal limits. No acute osseous abnormality. XR/XR chest 2V IMPRESSION: Clear lungs.
== END 2020-06-10 11:10 | disposition home or self-care (01) ==
LOC: HO.XRAY 11:09
PROVIDERS: PCP Student in an Organized Health Care Education/Training Program; Visit Provider Internal Medicine Nephrology
DX: R76.11 Nonspecific reaction to tuberculin skin test without active tuberculosis (principal)
CPT/HCPCS: 71046

== ENCOUNTER 2021-01-11 15:40 | Outpatient (REF) | payer MEDICAID, SELFPAY | END 2021-01-11 15:41 | disposition home or self-care (01) | LOC: HO.LAB 15:40 | PROVIDERS: PCP Student in an Organized Health Care Education/Training Program; Visit Provider Internal Medicine | DX: Z20.822 Contact with and (suspected) exposure to COVID-19 (principal) | CPT/HCPCS: C9803; U0003; U0005 ==

== ENCOUNTER 2021-04-04 22:26 | Emergency (ER) | payer MEDICAID, SELFPAY ==
[2021-04-04 22:39] VITALS: BP 127/89; BP 132/67; PULSE 113; PULSE 82; RESP 20; TEMP 36.9; O2SAT 98; O2SAT 99; BMI 22.8
--- NOTE | 2021-04-04 22:48 | ED.CHESTPAIN ---
HPI - Chest Pain General Chief Complaint: Chest Pain Stated Complaint: chest pain Time Seen by Provider: 04/04/21 22:48 Source: patient Mode of arrival: ambulatory Limitations: no limitations History of Present Illness HPI narrative: Patient's history of end-stage renal disease known coronary disease supposed to go for dialysis today but missed as he overslept and not feeling good not vaccinated against COVID complaining of diffuse chest pain since afternoon today with history of same in the past patient try to call dialysis center because not get the space today denies any cough has slight shortness of breath but saturating 100% at room air Related Data Home Medications Medication Instructions Recorded Confirmed albuterol sulfate 90 mcg/actuation 2 puff INHALATION QID 01/04/20 01/04/20 aerosol inhaler (ProAir HFA) amlodipine 5 mg tablet 5 mg PO DAILY 01/04/20 01/04/20 aspirin 81 mg tablet 81 mg PO DAILY 01/04/20 01/04/20 carvedilol 25 mg tablet 25 mg PO BID 01/04/20 01/04/20 famotidine 20 mg tablet 20 mg PO BID 01/04/20 01/04/20 ropinirole 4 mg tablet 4 mg PO BEDTIME 01/04/20 01/04/20 Allergies Allergy/AdvReac Type Severity Reaction Status Date / Time Penicillins [PENICILLINS] Allergy Intermediate SWELLING Verified 01/04/20 07:39 zolpidem [From AMBIEN] Allergy Mild SWELLING Verified 01/04/20 07:39 penicillin V Allergy Unknown swelling Verified 02/25/19 00:00 heparin [HEPARIN] AdvReac Intermediate NAUSEA/VOMI Verified 01/04/20 20:10 TING Review of Systems Review of Systems: Yes all other systems are reviewed and are negative [facility] Past Medical History Medical History Congestive cardiomyopathy Elevated troponin End stage renal disease on dialysis Hypertension Junctional tachycardia Metal bone fixation hardware in place Social History Social History Household Members: None Housing: House Housing Other:: RENTS A ROOM Do you presently have visiting nurse or other home services: No Alcohol intake: never Patient Tobacco Use Status: Former Tobacco user Cigarette Packs Per Day: 0.1 Cigarettes Per Day: 2.0 Years Smoked: 35 Second Hand Smoke Exposure: No Use of substances other than those prescribed or required for medical reasons: No Substance Use Type: Marijuana Advance Directives: No service: No Current occupational status: unemployed Physical Exam Vital Signs: Vital Signs: Last Vital Signs Temp 98.4 F 04/04/21 22:39 Pulse 107 H 04/04/21 23:50 Resp 16 04/04/21 23:50 BP 116/85 04/04/21 23:50 Pulse Ox 100 04/04/21 23:50 BMI result Body Mass Index 22.8 Appearance: Alert. Oriented X3. No acute distress. ENT: Pharynx normal. Oral Mucosa moist Neck: Normal inspection. Neck supple. CVS: Normal heart rate and rhythm. Pulses normal. No murmur/gallop Respiratory: No respiratory distress. Equal air entry bilateral, no wheezing/rales/rhonchi Abdomen: Soft and nontender. Bowel sounds are present, no mass palpable, no CVA tenderness Skin: Skin warm and dry. Normal skin color. Normal skin turgor. Extremities: No lower extremity edema. MDM - Chest Pain MDM Narrative Medical decision making narrative: Patient with atypical chest pain saturating 100% on room air no acute EKG changes not vaccinated against COVID, COVID test came positive at this time chest x-ray is negative for any infiltrate and patient is saturating 100% patient has a chronically elevated troponin without any EKG changes will discharge patient home advised to follow up with wellness assistant tomorrow for dialysis Lab Data Attestation: I reviewed the patient's lab results. Result diagrams: 04/04/21 23:21 04/04/21 23:20 Labs: Lab Results 04/04/21 04/04/21 04/04/21 Range/Units 23:20 23:20 23:20 WBC (4.8-10.8) X10*3/uL RBC (4.60-5.80) X10*6/uL Hgb (14.0-18.0) g/dl Hct (42.0-52.0) % MCV (80.0-98.0) fL MCH (27.0-33.0) pg MCHC (31.0-36.0) g/dl RDW (11.0-16.0) % Plt Count (160-400) X10*3/uL MPV (9.4-12.4) fL Immature Gran % (Auto) (0.0-0.4) % Neut % (Auto) (45-73) % Lymph % (Auto) (20-40) % [place] % (Auto) (2-11) % Eos % (Auto) (0-4) % Baso % (Auto) (0-2) % Lymph # (Auto) (1.2-4.9) X10*3/uL [place] # (Auto) (0.1-1.2) X10*3/uL Eos # (Auto) (0.0-0.4) X10*3/uL Baso # (Auto) (0.0-0.2) X10*3/uL Abs Immat Gran (auto) (0.00-0.03) X10*3/uL Absolute Neuts (auto) (2.0-8.3) x10*3/uL Absolute Nucleated RBC (0.0-0.012) X10*3/uL Nucleated RBC % (auto) (0.0-0.2) /100WBC PT (9.9-13.0) SEC INR (0.9-1.1) APTT (24.1-38.0) SEC Sodium 139 (135-145) mmol/L Potassium 4.4 (3.3-5.1) mmol/L Chloride 102 (96-108) mmol/L Carbon Dioxide 21 L (22-29) mmol/L Anion Gap 20 (12-20) BUN 73 H (9-16) mg/dL Creatinine 17.04 H* (0.5-1.4) mg/dL Estim Creat Clear Calc 5.2 Estimated GFR 3 Random Glucose 120 H (60-115) mg/dL Calcium 7.3 L D (8.4-10.2) mg/dL Troponin I High Sens 23.7 (<3.5-35.0) ng/L COVID-19 (AGUILAR) Positive A (Negative) COVID-19 Clin Com See Note 04/04/21 04/04/21 Range/Units 23:21 23:55 WBC 5.6 (4.8-10.8) X10*3/uL RBC 4.28 L (4.60-5.80) X10*6/uL Hgb 12.7 L (14.0-18.0) g/dl Hct 38.2 L (42.0-52.0) % MCV 89.3 (80.0-98.0) fL MCH 29.7 (27.0-33.0) pg MCHC 33.2 (31.0-36.0) g/dl RDW 13.1 (11.0-16.0) % Plt Count 140 L (160-400) X10*3/uL MPV 10.5 (9.4-12.4) fL Immature Gran % (Auto) 0.2 (0.0-0.4) % Neut % (Auto) 75.9 H (45-73) % Lymph % (Auto) 9.4 L (20-40) % [place] % (Auto) 12.9 H (2-11) % Eos % (Auto) 1.2 (0-4) % Baso % (Auto) 0.4 (0-2) % Lymph # (Auto) 0.5 L (1.2-4.9) X10*3/uL [place] # (Auto) 0.7 (0.1-1.2) X10*3/uL Eos # (Auto) 0.1 (0.0-0.4) X10*3/uL Baso # (Auto) 0.0 (0.0-0.2) X10*3/uL Abs Immat Gran (auto) 0.01 (0.00-0.03) X10*3/uL Absolute Neuts (auto) 4.3 (2.0-8.3) x10*3/uL Absolute Nucleated RBC 0.000 (0.0-0.012) X10*3/uL Nucleated RBC % (auto) 0.0 (0.0-0.2) /100WBC PT 12.1 (9.9-13.0) SEC INR 1.1 (0.9-1.1) APTT 44.6 H (24.1-38.0) SEC Sodium (135-145) mmol/L Potassium (3.3-5.1) mmol/L Chloride (96-108) mmol/L Carbon Dioxide (22-29) mmol/L Anion Gap (12-20) BUN (9-16) mg/dL Creatinine (0.5-1.4) mg/dL Estim Creat Clear Calc Estimated GFR Random Glucose (60-115) mg/dL Calcium (8.4-10.2) mg/dL Troponin I High Sens (<3.5-35.0) ng/L COVID-19 (AGUILAR) (Negative) COVID-19 Clin Com ECG Data ECG #1: Attestation: I personally reviewed and interpreted this ECG as follows: Interpretation: Sinus tachycardia heart rate 110 beats per minute LVH normal interval normal axis no acute ST wave changes no acute ischemia Discharge Plan Discharge Clinical Impression: COVID-19, ESRD (end stage renal disease) on dialysis Chest pain Qualifiers: Chest pain type: precordial pain Qualified Code(s): R07.2 - Precordial pain Patient Disposition: Home, Self-Care Instructions: Chest Pain (ED), End Stage Kidney Disease (ED), COVID-19 (Coronavirus Disease 2019) (ED) Additional Instructions: Have social distancing as advised Scheduled for dialysis tomorrow call your doctor/dialysis center Report to the ER if increased shortness of breath Prescriptions: No Action carvedilol 25 mg Tablet 25 mg PO BID RF: 0 amlodipine 5 mg Tablet 5 mg PO DAILY RF: 0 famotidine 20 mg Tablet 20 mg PO BID RF: 0 aspirin 81 mg Tablet 81 mg PO DAILY RF: 0 albuterol sulfate [ProAir HFA] 90 mcg/actuation Hfa Aerosol Inhaler 2 puff INHALATION QID RF: 0 ropinirole 4 mg Tablet 4 mg PO BEDTIME RF: 0
--- NOTE | 2021-04-04 22:49 | ECG_ITS ---
Test Reason : CHEST PAIN Blood Pressure : / mmHG Vent. Rate : 110 BPM Atrial Rate : 000 BPM P-R Int : 000 ms QRS Dur : 098 ms QT Int : 362 ms P-R-T Axes : 000 -69 094 degrees QTc Int : 489 ms Accelerated Junctional rhythm with retrograde conduction Left anterior fascicular block Minimal voltage criteria for LVH, may be normal variant ( [place] product ) Abnormal QRS-T angle, consider primary T wave abnormality Abnormal ECG When compared with ECG of 04-FEB-2020 04:40, No significant change was found Referred By: Emile Carlson Electronically Signed By:LILLIANA MARTINEZ MD
[2021-04-04 23:30] LABS: MANUAL DIFF FLAG NO
[2021-04-04 23:31] LABS: Basophils Percent Auto 0.4 % (0-2); Eosinophils Absolute Auto 0.1 X10*3/uL (0.0-0.4); PLT CLUMP 1; SCAN SMEAR FLAG 1
[2021-04-04 23:33] LABS: Eosinophils Percent Auto 1.2 % (0-4); Hematocrit 38.2 % (42.0-52.0); Hemoglobin 12.7 g/dl (14.0-18.0); Imm Gran Abs Auto 0.01 X10*3/uL (0.00-0.03); Imm Gran Pct Auto 0.2 % (0.0-0.4); Lymphocytes Absolute Auto 0.5 X10*3/uL (1.2-4.9); Lymphocytes Percent Auto 9.4 % (20-40); Mean Corpuscular HGB Conc 33.2 g/dl (31.0-36.0); Mean Corpuscular Hemoglobin 29.7 pg (27.0-33.0); Mean Corpuscular Volume 89.3 fL (80.0-98.0); Mean Platelet Volume 10.5 fL (9.4-12.4); Monocytes Absolute Auto 0.7 X10*3/uL (0.1-1.2); Monocytes Percent Auto 12.9 % (2-11); Neutrophils Absolute Auto 4.3 x10*3/uL (2.0-8.3); Neutrophils Percent Auto 75.9 % (45-73); Red Blood Count 4.28 X10*6/uL (4.60-5.80); Red Cell Distribution Width 13.1 % (11.0-16.0)
--- NOTE | 2021-04-04 23:38 | PC.NURSE ---
Iv placed and labs collected and sent. pt on bedside monitor.
[2021-04-04 23:49] LABS: Platelet Count 140 X10*3/uL (160-400); White Blood Count 5.6 X10*3/uL (4.8-10.8)
[2021-04-04 23:49] LABS: COVID-19 Test Positive (Negative)
[2021-04-04 23:50] VITALS: BP 116/85; PULSE 107; RESP 16; O2SAT 100
[2021-04-04 23:52] LABS: Troponin-I High Sensitivity 23.7 ng/L (<3.5-35.0)
[2021-04-05 00:03] LABS: Anion Gap 20 (12-20); Blood Urea Nitrogen 73 mg/dL (9-16); Calcium 7.3 mg/dL (8.4-10.2); Carbon Dioxide 21 mmol/L (22-29); Chloride 102 mmol/L (96-108); Creatinine Clr Calc Pharmacy 5.2; Estimated Glomerular Filt Rate 3; Glucose Random 120 mg/dL (60-115); Potassium 4.4 mmol/L (3.3-5.1); Sodium 139 mmol/L (135-145)
[2021-04-05 00:05] LABS: INTERNATIONAL NORM RATIO 1.1 (0.9-1.1); Prothrombin Time 12.1 SEC (9.9-13.0)
[2021-04-05 00:08] LABS: Partial Thromboplastin Time 44.6 SEC (24.1-38.0)
== END 2021-04-05 01:40 | disposition home or self-care (01) ==
PROVIDERS: Emergency Provider Internal Medicine; PCP Student in an Organized Health Care Education/Training Program
DX: U07.1 COVID-19 (principal); I12.0 Hypertensive chronic kidney disease with stage 5 chronic kidney disease or end stage renal disease; N18.6 End stage renal disease; Z99.2 Dependence on renal dialysis
CPT/HCPCS: 36415; 80048; 84484; 85025; 85610; 85730; 87635; 93005; 99283; 99284

== ENCOUNTER 2021-07-18 17:40 | Emergency (ER) | payer MEDICAID, SELFPAY ==
--- NOTE | 2021-07-18 19:20 | ED.DENTAL ---
HPI - Dental/Oral General Chief complaint: Dental/Oral Stated complaint: toothache Source: patient Mode of arrival: ambulatory Limitations: no limitations History of Present Illness HPI Narrative: 46-year-old male presents with dental pain and swelling for the past 3 days. He has known dental caries and poor dental hygiene. MD Complaint: tooth pain Location: Tooth # Teeth map: 1. Swelling Onset (ago): day(s) (3) Duration: constant Severity: moderate Severity scale (1-10): 6 Relieving factors: nothing Exacerbating factors: chewing, cold, heat and drinking fluids Context: history of dental caries and poor dental care Associated symptoms: gum swelling Treatment prior to arrival: none Related Data Home Medications Medication Instructions Recorded Confirmed albuterol sulfate 90 mcg/actuation 2 puff INHALATION QID 01/04/20 01/04/20 aerosol inhaler (ProAir HFA) amlodipine 5 mg tablet 5 mg PO DAILY 01/04/20 01/04/20 aspirin 81 mg tablet 81 mg PO DAILY 01/04/20 01/04/20 carvedilol 25 mg tablet 25 mg PO BID 01/04/20 01/04/20 famotidine 20 mg tablet 20 mg PO BID 01/04/20 01/04/20 ropinirole 4 mg tablet 4 mg PO BEDTIME 01/04/20 01/04/20 Previous Rx's Medication Instructions Recorded clindamycin HCl 150 mg capsule 450 mg PO Q8H 10 Days #90 cap 07/18/21 Allergies Allergy/AdvReac Type Severity Reaction Status Date / Time Penicillins [PENICILLINS] Allergy Intermediate SWELLING Verified 07/18/21 19:27 zolpidem [From AMBIEN] Allergy Mild SWELLING Verified 07/18/21 19:27 penicillin V Allergy Unknown swelling Verified 07/18/21 19:27 heparin [HEPARIN] AdvReac Intermediate NAUSEA/VOMI Verified 07/18/21 19:27 TING Review of Systems Review of Systems: Constitutional: No Fever, No Chills ENT/Mouth: No swallowing difficulty, no change in voice, positive dental pain, positive jaw pain, positive facial swelling Eyes: No Eye Pain, No Swelling Cardiovascular: No Chest Pain, No SOB Respiratory: No Cough, No Sputum, No Wheezing, No Smoke Exposure, No Dyspnea Gastrointestinal: No Nausea, No Vomiting, No Diarrhea Genitourinary: No Dysuria Musculoskeletal: No Myalgias Skin: No rash Neuro: No Weakness, No Numbness, No Headache Yes all other systems are reviewed and are negative [facility] Past Medical History Attestation statement: The following information was validated with the patient. Source: old records reviewed Medical History Congestive cardiomyopathy Elevated troponin End stage renal disease on dialysis Hypertension Junctional tachycardia Metal bone fixation hardware in place Social History Social History Household Members: None Housing: House Housing Other:: RENTS A ROOM Do you presently have visiting nurse or other home services: No Alcohol intake: never Patient Tobacco Use Status: Former Tobacco user Cigarette Packs Per Day: 0.1 Cigarettes Per Day: 2.0 Years Smoked: 35 Second Hand Smoke Exposure: No Substance Use Type: Marijuana Advance Directives: No Advance Directives Information Provided: Yes service: No Current occupational status: unemployed Physical Exam Vital Signs: Vital Signs: Last Vital Signs Temp 98.7 F 07/18/21 19:29 Pulse 71 07/18/21 19:29 Resp 17 07/18/21 19:29 BP 146/91 H 07/18/21 19:29 Pulse Ox 100 07/18/21 19:29 BMI result Body Mass Index 22.8 Appearance: Alert. Oriented X3. No acute distress. Eyes: Pupils equal, round and reactive to light. ENT: Pharynx normal. Dental swelling, all teeth in his mouth or broken or cavities. Neck: Normal inspection. Neck supple. No mastoid tenderness. CVS: Normal heart rate and rhythm. Pulses normal. Respiratory: No respiratory distress. Breath sounds normal. Abdomen: Soft and nontender. Skin: Skin warm and dry. Normal skin color. Normal skin turgor. Extremities: No lower extremity edema. Gait well-balanced will coordinated. Neuro: No motor deficit. No sensory deficit. Cranial nerve 2-12 intact. Course Course Course Narrative: 46-year-old male presents with dental pain and swelling. Has very poor dental care, all of his teeth are broken or have caries. He will follow-up with a dentist later this week. Has anaphylactic reaction to penicillin, will treat with clindamycin. I did discuss in detail risks of clindamycin and that if he has any symptoms indicating C difficile to present to the emergency department or to his primary care physician's office for evaluation. Patient cannot use any Motrin, he will use Tylenol as needed for pain management. Patient verbalized understanding of and agrees to plan of care to discharge home. Verbalized understanding of signs and symptoms indicating need for emergent intervention MDM - Dental/Oral Differential Diagnosis Differential diagnosis: Likely gingival abscess, dental caries, toothache and dental abscess Medical Records Attestation: I reviewed the patient's medical records. Discharge Plan Discharge Clinical Impression: Toothache, Dental caries Patient Disposition: Home, Self-Care Instructions: Toothache (ED) Additional Instructions: You were evaluated for dental pain. I prescribed clindamycin 450 mg 3 times a day for 10 days. You must follow-up with your dentist this week. Use Tylenol as needed for pain. Thank you for choosing this emergency department for evaluation. Please follow-up with primary care physician as needed. Return to the emergency department for any new, concerning, or worsening symptoms. Prescriptions: New clindamycin HCl 150 mg capsule 450 mg PO Q8H 10 Days Qty: 90 0RF No Action carvedilol 25 mg Tablet 25 mg PO BID 0RF amlodipine 5 mg Tablet 5 mg PO DAILY 0RF famotidine 20 mg Tablet 20 mg PO BID 0RF aspirin 81 mg Tablet 81 mg PO DAILY 0RF albuterol sulfate [ProAir HFA] 90 mcg/actuation Hfa Aerosol Inhaler 2 puff INHALATION QID 0RF ropinirole 4 mg Tablet 4 mg PO BEDTIME 0RF Stand Alone Forms: Dental Emergency Numbers Interventions: ED Discharge Assessment Last Done: 07/18/21 20:28 Discharge Date/Time: 07/18/21 20:29
[2021-07-18 19:25] VITALS: BMI 22.8
[2021-07-18 19:29] VITALS: BP 146/91; PULSE 71; RESP 17; TEMP 37.1; O2SAT 100
[2021-07-18] MEDS: Clindamycin HCL 150 MG CAPSULE 450 MG PO (20:18)
== END 2021-07-18 20:29 | disposition home or self-care (01) ==
PROVIDERS: Emergency Provider Internal Medicine; PCP Student in an Organized Health Care Education/Training Program
DX: K02.9 Dental caries, unspecified (principal); Z87.891 Personal history of nicotine dependence; Z79.899 Other long term (current) drug therapy
CPT/HCPCS: 99283

== ENCOUNTER 2022-01-07 18:35 | Emergency (ER) | payer MEDICAID, SELFPAY ==
[2022-01-07 18:55] VITALS: BP 122/71; PULSE 80; RESP 16; TEMP 36.7; O2SAT 97; BMI 22.8
--- NOTE | 2022-01-07 21:35 | ED.EYEPROB ---
HPI - Eye Problem General Chief complaint: Eye Problems Stated complaint: irritation in both eyes Time Seen by Provider: 01/07/22 21:35 Source: patient Mode of arrival: ambulatory Limitations: no limitations History of Present Illness HPI Narrative: 46-year-old male presents with 1 week of bilateral eye pain redness and irritation. Patient states that his eyes are tearing constantly, and he has sensitivity to light because of the pain. He does not report any purulent discharge or changes in vision. MD chief complaint: eye pain, eye redness and eye injury Onset (ago): week(s) (1) Onset description: gradual Duration: constant Location: both eyes Eye Symptoms: burning, redness, pain, foreign body sensation and photophobia Place: home Mechanism: none Severity: moderate Severity scale (1-10): 7 If Pain, Quality: burning Associated symptoms: none Treatments Prior to Arrival: OTC eye drops Related Data Patient tetanus UTD: Yes Home Medications Medication Instructions Recorded Confirmed albuterol sulfate 90 mcg/actuation 2 puff inhalation QID 01/04/20 01/04/20 aerosol inhaler (ProAir HFA) amlodipine 5 mg tablet 5 mg PO DAILY 01/04/20 01/04/20 aspirin 81 mg tablet 81 mg PO DAILY 01/04/20 01/04/20 carvedilol 25 mg tablet 25 mg PO BID 01/04/20 01/04/20 famotidine 20 mg tablet 20 mg PO BID 01/04/20 01/04/20 ropinirole 4 mg tablet 4 mg PO BEDTIME 01/04/20 01/04/20 Previous Rx's Medication Instructions Recorded clindamycin HCl 150 mg capsule 450 mg PO Q8H 10 days #90 caps 07/18/21 erythromycin 5 mg/gram (0.5 %) eye 0.5 inch ophthalmic (eye) Q4H 7 01/07/22 ointment days #3.5 grams Allergies Allergy/AdvReac Type Severity Reaction Status Date / Time Penicillins [PENICILLINS] Allergy Intermediate SWELLING Verified 01/07/22 18:54 zolpidem [From AMBIEN] Allergy Mild SWELLING Verified 01/07/22 18:54 penicillin V Allergy Unknown swelling Verified 01/07/22 18:54 heparin [HEPARIN] AdvReac Intermediate NAUSEA/VOMI Verified 01/07/22 18:54 TING Review of Systems Review of Systems: Constitutional: No Fever, No Chills ENT/Mouth: No Ear Pain, No Hoarseness, No sore throat Eyes: Positive bilateral Eye Pain, No Swelling, positive bilateral Redness, No Foreign Body Cardiovascular: No Chest Pain, No SOB Respiratory: No Cough, No Dyspnea Gastrointestinal: No Nausea, No Vomiting, No Diarrhea, No abdominal Pain Genitourinary: No Dysuria, No Hematuria Musculoskeletal: No joint pain, No Myalgias, No Joint Swelling Skin: No Skin lacerations, No rash Neuro: No Weakness, No Numbness, No Paresthesias, No Loss of Consciousness, No Dizziness, No Headache Psych: No Anxiety/Panic, No Depression Heme/Lymph: no easy bruising, no Lymphadenopathy Endocrine: No Polyuria, No Polydipsia Yes all other systems are reviewed and are negative Eyes: Eyes: Reports photophobia PMFSH Past Medical History Attestation statement: The following information was validated with the patient. Source: old records reviewed Medical History Congestive cardiomyopathy Elevated troponin End stage renal disease on dialysis Hypertension Junctional tachycardia Metal bone fixation hardware in place Social History Social History Household Members: None Housing: House Housing Other:: RENTS A ROOM Do you presently have visiting nurse or other home services: No Alcohol intake: never Patient Tobacco Use Status: Former Tobacco user Cigarette Packs Per Day: 0.1 Cigarettes Per Day: 2.0 Years Smoked: 35 Second Hand Smoke Exposure: No Substance Use Type: Marijuana Advance Directives: No Advance Directives Information Provided: Yes service: No Current occupational status: unemployed Physical Exam Vital Signs: Vital Signs: Last Vital Signs Temp 98.0 F 01/07/22 18:55 Pulse 80 01/07/22 18:55 Resp 16 01/07/22 18:55 BP 122/71 01/07/22 18:55 Pulse Ox 97 01/07/22 18:55 O2 Del Method 01/07/22 18:55 BMI result Body Mass Index 22.8 Appearance: Alert. Oriented X3. No acute distress. Eyes: Pupils equal, round and reactive to light. Bilateral conjunctivitis, with bilateral corneal abrasions. ENT: Pharynx normal. Neck: Normal inspection. Neck supple. CVS: Normal heart rate and rhythm. Pulses normal. Respiratory: No respiratory distress. Breath sounds normal. Abdomen: Soft and nontender. Skin: Skin warm and dry. Normal skin color. Normal skin turgor. Extremities: No lower extremity edema. Neuro: No motor deficit. No sensory deficit. Eyes: Alignment and Position: alignment normal Periorbital: periorbital findings normal Eyelids: Yes eyelids normal Conjunctivae: conjunctival abnormal bilateral Corneas: corneas abnormal bilateral and fluorescein used Pupils: Equal, round and reactive pupils present Direct Ophthalmoscopy: anterior chamber normal and photophobia Eyes/upper lids images: 1. Linear corneal abrasion to the right eye from the center of the cornea to the 9 o'clock position 2. Round corneal abrasion at the 5 o'clock position between the edge of the iris and pupil. Neuro: Cranial nerves: Yes Equal, round and reactive pupils present Course Course Course Narrative: 46-year-old male on dialysis for kidney failure presents with 1 week of bilateral eye pain, tearing, and erythematous conjunctiva without purulent drainage. No changes in vision, has full range of motion without extra ocular pain. Has positive fluorescein uptake bilateral eyes, right is a linear abrasion, left is a round abrasion. Tdap vaccine is updated. Will order erythromycin eye ointment and have patient follow-up with Dr. Ramos as an outpatient. Patient verbalized understanding of and agrees to plan of care discharge home. Verbalized understanding of signs and symptoms indicating need for emergent intervention. MDM - Eye Problem Differential Diagnosis Differential diagnosis: Likely corneal abrasion, conjunctivitis, acute iritis, hyphema, periorbital cellulitis, subconjunctival hemorrhage and corneal ulcer Medical Records Attestation: I reviewed the patient's medical records. Discharge Plan Discharge Clinical Impression: Corneal abrasion, Conjunctivitis Patient Disposition: Home, Self-Care Instructions: Corneal Abrasion (ED), Conjunctivitis (ED) Additional Instructions: You were evaluated for bilateral eye pain and redness. You have a corneal abrasion and conjunctivitis to both eyes. Please use erythromycin eye ointment every 4 hours while awake to each eye. Do not rub your eyes. This will worsen your corneal abrasions. Wash your hands before and after applying the eye ointment. You must follow-up with Ophthalmology. Please call Dr. Ramos for an appointment Thank you for choosing this emergency department for evaluation. Please follow-up with primary care physician as needed. Return to the emergency department for any new, concerning, or worsening symptoms. Prescriptions: New erythromycin 5 mg/gram (0.5 %) ointment 0.5 inch ophthalmic (eye) Q4H 7 Days Qty: 3.5 0RF Rx Instructions: Dispense 2 tubes, 1 for each eye. No Action carvedilol 25 mg Tablet 25 mg PO BID amlodipine 5 mg Tablet 5 mg PO DAILY famotidine 20 mg Tablet 20 mg PO BID aspirin 81 mg Tablet 81 mg PO DAILY albuterol sulfate [ProAir HFA] 90 mcg/actuation Hfa Aerosol Inhaler 2 puff INHALATION QID ropinirole 4 mg Tablet 4 mg PO BEDTIME clindamycin HCl 150 mg capsule 450 mg PO Q8H 10 Days Qty: 90 0RF Referrals: Vidal Ramos [Physician] - 3 days (Bilateral conjunctivitis with corneal abrasions) Discharge Date/Time: 01/07/22 22:56
[2022-01-07] MEDS: Erythromycin Base 0.5% Oph Oin 1 GM TUBE 1 CM EYE-BOTH (22:41)
[2022-01-07] MEDS: Tetracaine HCl/PF 0.5% Oph Sol 4 ML DROPS 1 DROP EYE-BOTH (22:42)
[2022-01-07] MEDS: Eye Irrigation Solution 118 ML IRRIG.SOLN 2 APPL EYE-BOTH (22:43)
[2022-01-07] MEDS: Fluorescein Sodium STRIP 2 STRIP EYE-BOTH (22:43)
== END 2022-01-07 22:56 | disposition home or self-care (01) ==
PROVIDERS: Emergency Provider Emergency Medicine Emergency Medical Services; PCP Student in an Organized Health Care Education/Training Program
DX: S05.02XA Injury of conjunctiva and corneal abrasion without foreign body, left eye, initial encounter (principal); S05.01XA Injury of conjunctiva and corneal abrasion without foreign body, right eye, initial encounter; X58.XXXA Exposure to other specified factors, initial encounter; H10.9 Unspecified conjunctivitis; H57.13 Ocular pain, bilateral; Y93.9 Activity, unspecified; Y92.9 Unspecified place or not applicable; Y99.9 Unspecified external cause status
CPT/HCPCS: 90471; 99281; 99283; 99284

== ENCOUNTER 2022-01-10 16:31 | Outpatient (REF) | payer MEDICAID, SELFPAY ==
[2022-01-10 16:44] LABS: MANUAL DIFF FLAG NO
[2022-01-10 17:21] LABS: Basophils Percent Auto 0.5 % (0-2); Eosinophils Absolute Auto 0.1 X10*3/uL (0.0-0.4); Eosinophils Percent Auto 2.2 % (0-4); Hematocrit 36.5 % (42.0-52.0); Hemoglobin 11.5 g/dl (14.0-18.0); Imm Gran Abs Auto 0.02 X10*3/uL (0.00-0.03); Imm Gran Pct Auto 0.3 % (0.0-0.4); Lymphocytes Absolute Auto 1.2 X10*3/uL (1.2-4.9); Lymphocytes Percent Auto 18.8 % (20-40); Mean Corpuscular HGB Conc 31.5 g/dl (31.0-36.0); Mean Corpuscular Hemoglobin 28.8 pg (27.0-33.0); Mean Corpuscular Volume 91.5 fL (80.0-98.0); Mean Platelet Volume 10.3 fL (9.4-12.4); Monocytes Absolute Auto 0.5 X10*3/uL (0.1-1.2); Monocytes Percent Auto 7.1 % (2-11); Neutrophils Absolute Auto 4.6 x10*3/uL (2.0-8.3); Neutrophils Percent Auto 71.1 % (45-73); Platelet Count 183 X10*3/uL (160-400); Red Blood Count 3.99 X10*6/uL (4.60-5.80); Red Cell Distribution Width 13.3 % (11.0-16.0); White Blood Count 6.5 X10*3/uL (4.8-10.8)
[2022-01-10 17:32] LABS: C Reactive Protein 0.98 mg/dL (< or = 0.50); Rheumatoid Factor < 15.0 IU/mL (<15.0)
[2022-01-10 18:18] LABS: Erythrocyte Sedimentation Rate 12 MM/HR (0-15)
[2022-01-12 12:37] LABS: Anti Nuclear Antibody Screen NEGATIVE (NEGATIVE)
[2022-01-13 19:32] LABS: Treponema pallidum Ab FTA ABS Nonreactive (Nonreactive)
[2022-01-15 05:11] LABS: Angiotensin Converting Enzyme 17 U/L (9-67)
== END 2022-01-10 16:32 | disposition home or self-care (01) ==
LOC: HO.LAB 16:31
PROVIDERS: Visit Provider Ophthalmology
DX: H20.9 Unspecified iridocyclitis (principal)
CPT/HCPCS: 36415; 82164; 85025; 85652; 86038; 86039; 86140; 86431; 86780

== ENCOUNTER 2023-02-12 15:57 | Emergency (ER) | payer MEDICAID, SELFPAY ==
[2023-02-12 16:02] VITALS: BP 160/102; BP 160/94; PULSE 101; PULSE 65; RESP 18; TEMP 36.6; O2SAT 98; O2SAT 99; BMI 21.3
--- NOTE | 2023-02-12 16:04 | ED.GENADULT ---
HPI - General Adult General Chief complaint: General Medical Stated complaint: LAC BLEEDING CONTROLLED Time Seen by Provider: 02/12/23 16:50 Source: patient Mode of arrival: EMS Limitations: no limitations History of Present Illness HPI narrative: Patient on dialysis is had dialysis earlier today came home while in the shower started bleeding from the AV fistula at the site of puncture bled minor amount try to stop unable to stop it EMS applied Gene wrap Related Data Home Medications Medication Instructions Recorded Confirmed albuterol sulfate 90 mcg/actuation 2 puff inhalation QID 01/04/20 01/04/20 aerosol inhaler (ProAir HFA) amlodipine 5 mg tablet 5 mg PO DAILY 01/04/20 01/04/20 aspirin 81 mg tablet 81 mg PO DAILY 01/04/20 01/04/20 carvedilol 25 mg tablet 25 mg PO BID 01/04/20 01/04/20 famotidine 20 mg tablet 20 mg PO BID 01/04/20 01/04/20 ropinirole 4 mg tablet 4 mg PO BEDTIME 01/04/20 01/04/20 Previous Rx's Medication Instructions Recorded clindamycin HCl 150 mg capsule 450 mg (3 x 150 mg) PO Q8H 10 days 07/18/21 #90 caps erythromycin 5 mg/gram (0.5 %) eye 0.5 inch ophthalmic (eye) Q4H 7 01/07/22 ointment days #3.5 grams Allergies Allergy/AdvReac Type Severity Reaction Status Date / Time Penicillins [PENICILLINS] Allergy Intermediate SWELLING Verified 01/07/22 18:54 zolpidem [From AMBIEN] Allergy Mild SWELLING Verified 01/07/22 18:54 penicillin V Allergy Unknown swelling Verified 01/07/22 18:54 heparin [HEPARIN] AdvReac Intermediate NAUSEA/VOMI Verified 01/07/22 18:54 TING Review of Systems Review of Systems: Yes all other systems are reviewed and are negative PMFSH Past Medical History Medical History Junctional tachycardia Metal bone fixation hardware in place Elevated troponin Congestive cardiomyopathy End stage renal disease on dialysis Hypertension Social History Social History Household Members: None Housing: House Housing Other:: RENTS A ROOM Do you presently have visiting nurse or other home services: No Alcohol intake: never Patient Tobacco Use Status: Former Tobacco user Cigarette Packs Per Day: 0.1 Cigarettes Per Day: 2.0 Years Smoked: 35 Second Hand Smoke Exposure: No Substance Use Type: Marijuana Advance Directives: No Advance Directives Information Provided: Yes service: No Current occupational status: unemployed Physical Exam ED Vital Signs: Vital Signs - 24 hr 02/12/23 16:02 Temperature 97.9 F Pulse Rate 65 Respiratory Rate 18 Blood Pressure 160/94 H Pulse Oximetry 98 Oxygen Delivery Method Room Air BMI result Body Mass Index 21.3 Appearance: Alert. Oriented X3. No acute distress. CVS: Normal heart rate and rhythm. Pulses normal. Respiratory: No respiratory distress. Equal air entry bilateral, Abdomen: Soft and nontender. Skin: Skin warm and dry. Normal skin color. Normal skin turgor. Extremities: Av fistula in left forearm with bruit no active bleeding at this time Neuro: Oriented X 3. No motor deficit. Course Course Course Narrative: RME performed by Hillary Flanagan PA-C. Patient is a 47 year old assigned male at presenting to the emergency department with bleeding from his fistula. Patient placed back in the waiting room pending room availability. Medical Decision Making Medical Decision Making MDM Narrative: Patient with minor bleed from AV fistula site post dialysis after EMS applied Gene wrap bleeding stopped in the ER when re-examined no active bleeding was noticed dressing with Gene wrap was applied to avoid future bleeding tonight patient advised to keep the dressing to morning Differential Diagnosis Differential Diagnoses: The differential diagnosis associated with the presentation includes AV fistula bleeding Discharge Plan Discharge Clinical Impression: Hemorrhage of arteriovenous fistula Patient Disposition: Home, Self-Care Instructions: Arteriovenous Fistula Creation for Hemodialysis (DC) Additional Instructions: Local care as advised Keep pressure dressing till Am Prescriptions: No Action carvedilol 25 mg Tablet 25 mg PO BID amlodipine 5 mg Tablet 5 mg PO DAILY famotidine 20 mg Tablet 20 mg PO BID aspirin 81 mg Tablet 81 mg PO DAILY albuterol sulfate [ProAir HFA] 90 mcg/actuation Hfa Aerosol Inhaler 2 puff INHALATION QID ropinirole 4 mg Tablet 4 mg PO BEDTIME erythromycin 5 mg/gram (0.5 %) ointment 0.5 inch ophthalmic (eye) Q4H 7 Days Qty: 3.5 0RF Rx Instructions: Dispense 2 tubes, 1 for each eye. clindamycin HCl 150 mg capsule 450 mg PO Q8H 10 Days Qty: 90 0RF Interventions: ED Discharge Assessment Last Done: 02/12/23 17:11 Discharge Date/Time: 02/12/23 17:12 Print Language: Cook Islander
--- NOTE | 2023-02-12 16:43 | PC.NURSE ---
Pt refused lab work
== END 2023-02-12 17:12 | disposition home or self-care (01) ==
PROVIDERS: Emergency Provider Internal Medicine; PCP Student in an Organized Health Care Education/Training Program
DX: T82.838A Hemorrhage due to vascular prosthetic devices, implants and grafts, initial encounter (principal); X58.XXXA Exposure to other specified factors, initial encounter; Y82.8 Other medical devices associated with adverse incidents; Y92.9 Unspecified place or not applicable; Y93.9 Activity, unspecified; Y99.9 Unspecified external cause status
CPT/HCPCS: 99282

== ENCOUNTER 2024-01-22 14:07 | Outpatient (REF) | payer MEDICAID, SELFPAY ==
[2024-01-22 18:54] LABS: Alanine Aminotransferase 14 U/L (0-40); Albumin Level 4.7 g/dL (3.5-5.0); Alkaline Phosphatase 60 U/L (39-117); Anion Gap 21 (12-20); Aspartate Amino Transferase 22 U/L (5-37); Bilirubin Direct 0.2 mg/dL (0.0-0.5); Bilirubin Total 0.6 mg/dL (0.0-1.0); Blood Urea Nitrogen 37 mg/dL (9-16); Carbon Dioxide 25 mmol/L (22-29); Chloride 101 mmol/L (96-108); Cholesterol 193 mg/dL (<200); Estimated Glomerular Filt Rate 4; Glucose Random 66 mg/dL (60-115); HDL Cholesterol 47 mg/dL (>40); LDL Cholesterol Calculated 106 mg/dL (<100); Potassium 3.8 mmol/L (3.3-5.1); Sodium 143 mmol/L (135-145); Total Protein 7.5 g/dL (6.5-8.0); Triglycerides 200 mg/dL (<150)
== END 2024-01-22 14:08 | disposition home or self-care (01) ==
LOC: HO.CHCLDS 14:07
PROVIDERS: Visit Provider Student in an Organized Health Care Education/Training Program
DX: I50.9 Heart failure, unspecified (principal)
CPT/HCPCS: 36415; 80048; 80061; 80076

== ENCOUNTER 2025-02-05 09:43 | Outpatient (AMB) | payer MEDICAID, SELFPAY ==
--- NOTE | 2025-02-05 09:53 | A.OFFVIS_ITS ---
Vital Signs 02/05/25 10:01 Height 5 ft 8 in Weight 146 lb 8 oz BMI 22.3 BP 114/62 Blood Pressure Location Rt brachial Position Sitting Pulse 80 Intake Visit Reasons: bleeding hemorrhoids Intake Note: Patient presents for an assessment for bleeding hemorrhoids. Pt c/o; reports rectal bleedinf stopped about one month ago, reports he had a colonoscopy 1 year ago. Hygiene Coordinator Required: No Accompanied by: Self / Same As Patient Allergies Penicillins (PENICILLINS) Allergy (Intermediate, Verified 02/05/25 10:03) SWELLING zolpidem (From AMBIEN) Allergy (Mild, Verified 02/05/25 10:03) SWELLING penicillin V Allergy (Unknown, Verified 02/05/25 10:03) swelling heparin (HEPARIN) Adverse Reaction (Intermediate, Verified 02/05/25 10:03) NAUSEA/VOMITING HPI HPI bleeding hemorrhoids: Details: 49-year-old male referred for bleeding hemorrhoids. He has known end-stage renal disease and has been on hemodialysis for more than 15 years. He says that he knows he has had hemorrhoids for the past 7 years. He says that this has had periodic bleeding. He had undergone a colonoscopy in [place] for this and he says he was told this there was no other finding. He says that the bleeding seemed to have been worse a few months ago and he blamed this on the binder said he had been for his kidney disease. He said this has was stopped and he said he has bleeding has improved significantly the past month He denies being constipated. He feels well overall. [facility] Medical History (Updated 02/05/25 @ 10:25 by Rip Carrera MD) Bleeding hemorrhoids Junctional tachycardia Metal bone fixation hardware in place Elevated troponin Congestive cardiomyopathy End stage renal disease on dialysis Hypertension Social History Household Members: None Housing: House Housing Other:: RENTS A ROOM Do you presently have visiting nurse or other home services: No Alcohol intake: never Comment: patient sleeping Patient Tobacco Use Status: Former Tobacco user Cigarette Packs Per Day: 0.1 Cigarettes Per Day: 2.0 Years Smoked: 35 Second Hand Smoke Exposure: No Substance Use Type: Marijuana service: No Current occupational status: unemployed Review of Systems Const Denies chills and Denies fever(s) Card Denies chest pain, Denies dyspnea and Denies dyspnea on exertion Resp Denies cough, Denies dyspnea and Denies dyspnea on exertion GI Denies hematochezia and Denies change in bowel habits Denies hematuria and Denies difficulty urinating Musc Denies back pain and Denies limited range of motion Neuro Denies focal weakness and Denies convulsions Psych Denies depression and Denies mood swings Physical Exam Vital Signs: Last Vital Signs Pulse 80 02/05/25 10:01 BP 114/62 02/05/25 10:01 BMI result Body Mass Index 22.3 Const General: comfortable and no acute distress Orientation/consciousness: patient oriented x3 Neck Neck: Yes no lymphadenopathy Resp Auscultation: clear to auscultation bilaterally Cardio Rhythm: regular rhythm GI Other: Rectal exam shows external hemorrhoids, moderate-sized which seems to be in the right side Palpation (GI): Soft to palpation, nontender and no guarding Neuro General: patient oriented x3 Office Procedures Anoscopy He was in kneeling omid-knife position. The anoscope was gently inserted. A full examination of the anal canal was done. He did have a moderate-sized internal external hemorrhoidal column which seems to be in the right side. There is no active bleeding. There were no other lesions. There was no fissure ulceration. [id number] Assessment & Plan Assessment & Plan (1) Bleeding hemorrhoids: Code(s): K64.9 - Unspecified hemorrhoids Category: Medical Plan: He says that his bleeding has improved significantly after he was removed on some of the binders for his end-stage renal disease. He does understand that in view of his end-stage renal disease, he is prone to bleeding because of plate does dysfunction. He says he feels much improved. He does understand the option of proceeding with hemorrhoidectomy. I explained the technique of procedure as well as the risks, benefits, and alternatives He says that he does not feel a need for surgery at this time. He is welcome to come back as needed Medications: Discontinued erythromycin Dispense 2 tubes, 1 for each eye. Discontinued Reason: Patient no longer taking 0.5 inches ophthalmic (eye) Q4H 7 days 3.5 grams 0RF Coding Level of Care Code New Pt Level 3 (64757) Diagnoses Bleeding hemorrhoids K64.9 CPT Codes Details - CPT: 89069-Uazynqhz ([id number])
[2025-02-05 10:01] VITALS: BP 114/62; PULSE 80; BMI 22.3
--- OUTSIDE RECORDS SUMMARY | 2025-02-05 10:58 | XMS_ITS | Encounter Summary ---
Author Organization [facility], Address [address] [place] [address] Phone Care Team Providers Care Car Unloader Name Role Phone Darline Simpson MD Primary Care Provider [phone] Encounter Details Date Type Department Care Team (Late st Contact Info) Description 02/04/2025 Treatment [facility], [address] [place] [phone] Rosa Mata FNP-C [address] [place] [address] [place] [address] End stage renal disease; Dependence on renal dialysis Social History Tobacco Use Types Packs/Day Years Used Date Smoking Tobacco: Former Cigarettes Q uit: 07/12/2014 Smokeless Tobacco: Never Alcohol Use Standard Drinks/Week Comments Not Currently 0 (1 standard drink = 0.6 oz pur e alcohol) Sex and Gender Information Value Date Recorded Sex Assigned at Not on file Legal Sex Male 4:34 PM EST Gender Identity Not on file Sexual Orientation Not on file documented as of this encounter Miscellaneous Notes * Dialysis Note - Rosa Mata FNP-C - 02/04/2025 12:00 AM EST Patient: MERT PEÑA, 1975, 49y, M Dialysis Location: [facility] [employer] Attending Arch Pad Cementer: Adam Maldonado Service Date: 02/04/2025 Service Provider: Rosa Mata NP I met face to face with the patient today. OVERVIEW The patient presented with ESRD on dialysis Primary cause of renal failure: Hypertensive chronic kidney disease with stage 5 chronic kidney disease or end stage renal disease DIALYSIS PRESCRIPTION IHD 3x Week Start date: 02/02/25 Dialyzer: FX CorAL 80 BFR: 450 DFR: Manual 800 Potassium: 2.0 Sodium: 142 EDW: 64.5 Duration: 4:00 Calcium: 2.50 Bicarb: 35 Rx updated on: 02/02/2025 TREATMENT ASSESSMENT BP Stand Pre 02/04/2025: 89/65 02/02/2025: 128/76 01/30/2025: 99/58 BP Sit Pre 02/04/2025: 92/61 02/02/2025: 100/68 01/30/2025: 129/90 BP Stand Post 02/04/2025: 106/89 02/02/2025: 103/65 01/30/2025: 126/63 BP Sit Post 02/04/2025: 98/50 02/02/2025: 96/61 01/30/2025: 102/58 Prescribed Tx time 02/04/2025: 4:00 02/02/2025: 4:00 01/30/2025: 4:00 Tx Duration 02/04/2025: 4:06 02/02/2025: 4:05 01/30/2025: 4:07 Missed Treatments 0 - last 30 days 0 - last 60 days FLUID ASSESSMENT EDW (kg) 02/04/2025: 64.5 02/02/2025: 64.0 01/30/2025: 64.0 Weight Pre (kg) 02/04/2025: 66.7 02/02/2025: 69.3 01/30/2025: 66.7 Weight Post (kg) 02/04/2025: 65.3 02/02/2025: 65.2 01/30/2025: 63.5 PWV (kg) 02/04/2025: 0.8 02/02/2025: 1.2 01/30/2025: -0.5 UF Rate (mL/kg/hr) 02/04/2025: 5.2 02/02/2025: 15.4 01/30/2025: 12.2 ADEQUACY ASSESSMENT spKt/V, URR 12/31/2024: 1.4, 66.0 12/15/2024: 1.57, 70.0 12/03/2024: 1.29, 62.0 ACCESS ASSESSMENT Access Type: AVFistula Access SubType: Standard Access Status: Active (In Use) - 10/10/2017 Access Location: Left Forearm Created: 10/09/2017 Flow 01/07/2025: 1052 12/12/2024: 974 12/10/2024: 877 ANEMIA ASSESSMENT HGB 02/04/2025: 12.1 01/28/2025: 11.9 01/21/2025: 11.2 Ferritin 12/31/2024: 115.0 12/03/2024: 108.0 11/05/2024: 10.0 Mircera, IVP (mcg) 12/24/2024: 50 11/26/2024: 50 Iron Sucrose (Venofer) (mg) 01/26/2025: 100 01/23/2025: 100 01/21/2025: 100 BMM ASSESSMENT PTH, Intact 12/31/2024: 96.0 12/03/2024: 101.0 11/05/2024: 115.0 Calcium 01/28/2025: 7.0 01/21/2025: 6.3 01/14/2025: 6.6 NUTRITION ASSESSMENT Potassium 01/12/2025: 4.4 01/07/2025: 4.2 01/05/2025: 4.2 eNPCR 12/31/2024: 0.7 12/15/2024: 0.74 12/03/2024: 0.64 DIAGNOSIS Chief Complaint: N18.6 End stage renal disease Comments: Patient seen and examined. VSS with no complaints to offer. S1, S2. RRR, LS CTA BL. Access patent. BP low today, asymptomatic. Access revision postponed d/t needing cardiac clearance Patient is stable. Patient data updated 02/05/2025 at 10:23 AM Signed By: Roas Mata NP on 02/05/2025 10:23:21 AM documented in this encounter Plan of Treatment Not on file documented as of this encounter Visit Diagnoses Diagnosis End stage renal disease Dependence on renal dialysis documented in this encounter Care Teams Car Unloader Relationship Specialty Start Date End Date Darline Simpson MD [address] [place] [address] PCP - General 02/04/19 documented as of this encounter
--- OUTSIDE RECORDS SUMMARY | 2025-02-05 10:58 | XMS_ITS | Encounter Summary ---
Author Organization [facility], Address [address] [place] [address] Phone Care Team Providers Care Air Conditioning Sheet Metal Installer Name Role Phone Darline Simpson MD Primary Care Provider [phone] Encounter Details Date Type Department Care Team (Late st Contact Info) Description 08/16/2023 Documentation Only [facility], [address] [place] [address] Glenn Flores MD [address] [place] [phone] Social History Tobacco Use Types Packs/Day Years [...] on file documented as of this encounter Plan of Treatment Not on file documented as of this encounter Visit Diagnoses Not on filedocumented in this encounter Care Teams Air Conditioning Sheet Metal Installer Relationship Specialty Start Date End Date Darline Simpson MD [address] [place] [id number] PCP - General 02/04/19 documented as of this encounter
--- OUTSIDE RECORDS SUMMARY | 2025-02-05 10:58 | XMS_ITS | Clinical Summary ---
Author Organization [facility], Address [address] [place] [address] Phone Care Team Providers Care First Beater Name Role Phone Darline Simpson MD Primary Care Provider Allergies Active Allergy Reactions Criticality Noted Date Comments Heparin Swelling,Vomiting High 12/19/2019 Penicillins Swelling High 12/18/2019 Zolpidem Swelling,Other (see comments) High 12/18/2019 Fluid retention in fingers Medications amLODIPine (NORVASC) 2.5 MG tablet TAKE 1 TABLET BY MOUTH EVERY DAY 30 tablet 11 0 Active Additional Information Patient not taking.Reported on 09/06/2023 gabapentin (NEURONTIN) 100 MG capsule Take 1 capsule by mouth 2 (two) times a day Active carvedilol (COREG) 25 MG tablet Take 12.5 mg by mouth in the morning and 12.5 mg in the evening. Active rOPINIRole (REQUIP) 4 MG tablet Take 4 mg by mouth 1 (one) time each day in the evening 0 Active albuterol HFA (PROVENTIL HFA;VENTOLIN HFA) 108 (90 Base) MCG/ACT inhaler TAKE 2 PUFFS BY INHALATION ROUTE 4 TIMES EVERY DAY 0 Active Aspirin Low Dose 81 MG EC tablet Take 81 mg by mouth daily 0 Active famotidine (PEPCID) 20 MG tablet TAKE 1 TABLET BY MOUTH EVERY 12 HOURS NEEDED 30 tablet 3 1 Active Auryxia 1 GM 210 MG(Fe) tablet TAKE 2 TABLETS BY MOUTH 3 TIMES A DAY WITH MEALS 540 tablet 3 2 Active atorvastatin (LIPITOR) 80 MG tablet Take 80 mg by mouth 1 (one) time each day Active ergocalciferol 1.25 MG (87497 UT) capsule Take 50,000 Units by mouth 1 (one) time per week Active B complex-vitamin C-folic acid (NEPHRO-ZAIRA) 0.8 MG tablet Take 0.8 mg by mouth 1 (one) time each day Active phenol 1.4 % liquid Apply one spray to the throat, keep in place 15 seconds, then spit out. Apply every 2 hours as needed 1 Active Oyster Shell Calcium 500 MG tablet Take 2 tablets by mouth every night 3 Active Ferric Citrate (Auryxia) 1 GM 210 MG(Fe) tablet Take 630 mg by mouth 2 Active Calcium Carbonate-Vitam in D 600-5 MG-MCG capsule take 1 tablet by oral route every day 9 Active calcium acetate (PHOSLO) 667 MG tablet take 2 tablet by oral route 3 times every day with meals Active calcitriol (ROCALTROL) 0.5 MCG capsule take 1 capsule by oral route every day 9 Active amLODIPine (NORVASC) 2.5 MG tablet Take 5 mg by mouth 9 Active acetaminophen (TYLENOL 8 HOUR) 650 MG 8 hr tablet take 1 Tablet by oral route every 8 hours as needed 2 Active ergocalciferol 1.25 MG (90784 UT) capsule Take 1 capsule by mouth 2 Active calcium carbonate (OS-NINOSKA) 1250 (500 Ca) MG tablet Take 1 tablet by mouth 1 (one) time each day Active midodrine (PROAMATINE) 5 MG tablet PLEASE SEE ATTACHED FOR DETAILED DIRECTIONS 4 Active fludrocortisone 0.1 MG tablet TAKE 1 TABLET BY MOUTH EVERY DAY IN THE MORNING ON DIALYSIS DAYS NEEDED 4 Active spironolactone (ALDACTONE) 25 MG tablet See Instructions, 1 tablet By Mouth Daily, # 90 tablet, Refills 2, Tot. Refills 2, Maintenance, 01/17/24 1:01:00 PM EDT, Instructions Replace Required Details, Route to Pharmacy Electronically, [facility]/pharmacy #[id number], Partial fill upon patient request if the prescription is for a schedule II opioid drug., 173, cm, 11/01/23 8:57:00 EDT, Height, 63.3, kg, 10/16/23 14:15:00 EDT, Dry Weight 4 Active metoprolol succinate XL (TOPROL XL) 25 MG 24 hr tablet Take 25 mg by mouth 1 (one) time each day Do not crush or chew. Active B complex-vitamin C-folic acid (NEPHRO-ZAIRA) 0.8 MG tablet Take 0.8 mg by mouth 1 (one) time each day Active sildenafil (VIAGRA) 50 MG tablet Take 50 mg by mouth 1 (one) time each day if needed for erectile dysfunction Active lidocaine-prilo harriett (EMLA) cream Apply topically if needed for mild pain Active Active Problems Problem Noted Date Diagnosed Date Restless leg syndrome 03/13/2023 03/13/2023 Hyperphosphatemia 03/13/2023 03/13/2023 Hyperparathyroidism 10/26/2022 03/13/2023 Asthma 12/18/2019 Chronic congestive heart failure 12/18/2019 Dependence on renal dialysis 12/18/2019 Edema 12/18/2019 End stage renal disease 12/18/2019 Focal segmental glomerulosclerosis 12/18/2019 History of alcohol abuse 12/18/2019 Gastritis 12/18/2019 Hyperlipidemia 12/18/2019 Intravenous drug user 12/18/2019 Hypertensive disorder 12/18/2019 Proteinuria 12/18/2019 Supraventricular tachycardia 12/18/2019 Encounters Date Type Department Care Team Description 02/04/2025 Treatment [facility], [address] [place] [address] Rosa Mata FNP-Licha End stage renal disease; Dependence on renal dialysis 01/30/2025 Treatment [facility], [address] [place] [address] Glenn Flores MD End stage renal disease; Dependence on renal dialysis 01/28/2025 Treatment [facility], [address] [place] [address] Rosa Mata FNP-C End stage renal disease; Dependence on renal dialysis 01/21/2025 Treatment [facility] [address] [place] [address] Yesika Mataissa, CONCRETE PIPE MAKER-C End stage renal disease; Dependence on renal dialysis 01/12/2025 Treatment [facility] [place] [address] Miltons Rosa, CONCRETE PIPE MAKER-C End stage renal disease; Dependence on renal dialysis 12/26/2024 Treatment [facility] [place] [address] Esperanza Rosa, CONCRETE PIPE MAKER-C End stage renal disease; Dependence on renal dialysis 12/17/2024 Treatment [facility] [place] [address] Glenn Flores MD End stage renal disease; Dependence on renal dialysis 12/12/2024 Treatment [facility] [place] [address] Miltons, Rosa, CONCRETE PIPE MAKER-C End stage renal disease; Dependence on renal dialysis 12/05/2024 Treatment [facility] [place] [address] Miltons, Rosa, CONCRETE PIPE MAKER-C End stage renal disease; Dependence on renal dialysis 11/19/2024 Treatment [facility] [place] [address] Miltons, Rosa, CONCRETE PIPE MAKER-C End stage renal disease; Dependence on renal dialysis 11/14/2024 Treatment [facility] [place] [address] Glenn Flores MD End stage renal disease; Dependence on renal dialysis 11/12/2024 Orders Only [facility] [address] [place] [address] Adam Maldonado MD 11/07/2024 Treatment [facility] [address] [place] [address] Rosa Mata, CONCRETE PIPE MAKER-C End stage renal disease; Dependence on renal dialysis 11/05/2024 Orders Only [facility] [address] [place] [address] Adam Maldonado MD from Last 3 Months Social History Tobacco Use Types Packs/Day Years Used Date Smoking Tobacco: Former Cigarettes Q uit: 07/12/2014 Smokeless Tobacco: Never Tobacco Cessation:Counseling Given: Not Answered Alcohol Use Standard Drinks/Week Comments Not Currently 0 (1 standard drink = 0.6 oz pur e alcohol) Sex and Gender Information Value Date Recorded Sex Assigned at Not on file Legal Sex Male 4:34 PM EST Gender Identity Not on file Sexual Orientation Not on file Last Filed Vital Signs Vital Sign Reading Time Taken Comments Blood Pressure 91/51 08/26/2024 12:10 PM EDT Pulse 79 08/26/2024 12:10 PM EDT Temperature 36.1 C (97 F) 08/26/2024 12:10 PM EDT Respiratory Rate 16 08/26/2024 12:10 PM EDT Oxygen Saturation 99% 08/26/2024 12:10 PM EDT Inhaled Oxygen Concentration - - Weight 63.5 kg (140 lb) 08/26/2024 12:10 PM EDT Height 172.7 cm (5' 8 ) 08/26/2024 12:10 PM EDT Body Mass Index 21.29 08/26/2024 12:10 PM EDT Plan of Treatment Health Maintenance Due Date Last Done Comments Hepatitis B Vaccine (1 of 5 - Risk Dialysis 4-dose series) 1994 Pneumococcal Vaccine: 50+ Ye ars (2 of 2 - PCV) 01/04/2012 01/03/2011 Colorectal Cancer Screening: Annual FOBT 2023 Colorectal Cancer Screening: Colonoscopy 2023 Colorectal Cancer Screening: Sigmoidoscopy 2023 Influenza Vaccine (#1) 2024 01/15/2024, 2022 Pneumococcal Vaccine: Peds ( 0 to 5 Years) and At-Risk Patients (6 to 49 Years) Discontinued 01/03/2011 Procedures Procedure Name Priority Date/Time Associated Diagnosis Comments CHEMISTRY Routine 11/12/2024 HEMATOLOGY Routine 11/12/2024 HD KINETICS Routine 11/05/2024 POST CHEMISTRY Routine 11/05/2024 IMMUNO CHEMISTRY Routine 11/05/2024 CHEMISTRY Routine 11/05/2024 CHEMISTRY Routine 11/05/2024 HEMATOLOGY Routine 11/05/2024 from Last 3 Months Results * (ABNORMAL) HEMATOLOGY (11/12/2024) Only the most recent of2 resultswithin the time period is included. Hemoglobin 8.9(L) 14.0 - 18.0 g/dL [facility] Hemoglobin x 3 26.7(L) 42.0 - 54.0 % [facility] 11/12/2024 11/13/2024 8:3 7 AM EDT Narrative [facility] - 11/13/2024 Unless otherwise specified, test(s) performed at: [facility], [address] [place], [place] [id number] PLUGGER: Andres Taylor M.D. For any questions, please call customer service at FREQUENCY:OTHER Resulting Agency Comment Specimen source: Blood Adam Maldonado MD LAB BLOOD ORDERABLES Final Re sult [facility] See order comments or contact performing lab Unknown, [place] * (ABNORMAL) [facility] (11/12/2024) Only the most recent of3 resultswithin the time period is included. Calcium 7.8(L) 8.4 - 10.2 mg/dL [facility] 11/12/2024 11/13/2024 9:1 8 AM EDT Narrative ON24E - 11/13/2024 Unless otherwise specified, test(s) performed at: [facility], [address] [place] [id number] PLUGGER: Andres Taylor M.D. For any questions, please call customer service at FREQUENCY:OTHER Resulting Agency Comment Specimen source: Serum Adam Maldonado MD LAB BLOOD ORDERABLES Final Re sult Performing Organization Address City/[facility]/ZIP Co de Phone Number [facility] See order comments or contact performing lab Unknown, [place] * HD KINETICS (11/05/2024) Pathologist [facility] % Urea Reduction 67 65 - 80 % [facility] 11/05/2024 11/06/2024 2:5 2 PM EDT Narrative Resulting Agency Comment Specimen source: Plasma Adam Maldonado MD LAB BLOOD ORDERABLES Final Re sult Performing Organization Address [facility] Co de Phone Number [facility] See order comments or contact performing lab Unknown, [place] * POST CHEMISTRY (11/05/2024) Pathologist [facility] BUN Post Dialysis 17 6 - 19 mg/dL [facility] 11/05/2024 11/06/2024 2:5 2 PM EDT Narrative [facility] - 11/06/2024 Unless otherwise specified, test(s) performed at: [facility], [address] [place] [id number] PLUGGER: Andres Taylor M.D. For any questions, please call customer service at FREQUENCY:MONTHLY Resulting Agency Comment Specimen source: Plasma Aadm Maldonado MD LAB BLOOD ORDERABLES Final Re sult [facility] See order comments or contact performing lab Unknown, [place] * IMMUNO CHEMISTRY (11/05/2024) Pathologist [facility] Hep B Surface Ag Negative Negative [facility] 11/05/2024 11/06/2024 3:2 8 PM EDT Narrative Resulting Agency Comment Specimen source: Serum us Adam Maldonado MD LAB BLOOD ORDERABLES Final Re sult [facility] See order comments or contact performing lab Unknown, [place] from Last 3 Months Insurance Medicaid [place] Care Teams First Beater Relationship Specialty Start Date End Date Darline Simpson MD [address] [place] [address] PCP - General 02/04/19
--- OUTSIDE RECORDS SUMMARY | 2025-02-05 10:58 | XMS_ITS | Encounter Summary ---
Author Organization [facility], Address [address] [place] [address] Phone Care Team Providers Care Air Bag Stripper Name Role Phone Darline Simpson MD Primary Care Provider [phone] Encounter Details Date Type Department Care Team (Late st Contact Info) Description 01/30/2025 Treatment [facility], [address] [place] [address] Glenn Crandall MD [address] [place] [address] [place] [address] End stage renal disease; Dependence on renal [...] encounter Miscellaneous Notes * Dialysis Note - Glenn Crandall MD - 01/30/2025 12:00 AM EDT Patient: Skyler Pack : 1975 Note Type: Dialysis Rounds-Comp Service Date: 01/30/2025 This patient was personally seen [id number] for a complete visit as part of routine monthly dialysis care for end stage renal disease. Attending Supervisor Pole Yard: GLENN CRANDALL Dialysis Location: [facility] Schedule: Shift: 2 HOME MEDICATIONS Current [facility] Outpatient Medications aspirin 81 mg tablet,delayed release (DR/EC) Take 1 tablet by mouth once a day. [for heart health.] Calcium 500 500 mg calcium (1,250 mg) tablet,chewable Take 2 tablet by mouth three times a day with food. famotidine 20 mg tablet Take 1 tablet by mouth once a day. fludrocortisone 0.1 mg tablet Take 1 tablet by mouth every morning as needed. [Take on morning of dialysis days] Lanthanum Carbonate 1000 mg chewable tablet Take 2 Tablet By Mouth Three times a day With Meals. [Chew or crush 2 tablets before each meal.] lidocaine-prilocaine 2.5-2.5% cream Apply to skin as directed. Lipitor 80 mg tablet Take 1 tablet by mouth once a day as directed. metoprolol succinate 25 mg tablet extended release 24 hr Take 1 tablet by mouth once a day. midodrine 5 mg tablet Take 1 tablet by mouth three times a day as directed. [For hypotension. Can take 10 mg for systolic BP ?100 on HD.] Nephro-Chris 0.8 mg tablet Take 1 tablet by mouth once a day. Oyster Shell Calcium 500 500 mg calcium (1,250 mg) tablet Take 3 tablet by mouth every night at bedtime. Viagra 50 mg tablet Take 1 tablet by mouth once a day as needed. [TAKE 30 MINUTES PRIOR TO SEXUAL ACTIVITY NEEDED;] Vitamin D2 1,250 mcg (50,000 unit) capsule Take 1 capsule by mouth once a week as directed. Current [facility] Allergies Allergen: Ambien Reaction: Unknown Allergen: heparin (porcine) Reaction: Swelling Allergen: Penicillins Reaction: Unknown DIALYSIS PRESCRIPTION Treatment Data Treatment Date: 01/30/2025 started at: 9:56 AM Dialysate / Machine Temp (prescribed): 36.0*C Dialysate / Machine Temp (actual): 36.1*C BFR (prescribed): 450 BFR (average delivered): 450 DFR (prescribed): Manual 800 DFR (average delivered): 600 Prescribed Time: 04:00 Actual Time: 04:07 EDW (kg): 64.0 Dialyzer: FX CorAL 60 Dialysate: 2.0 K, 2.50 Ca, 1.0 Mg, 100 Dextrose ([id number]) Sodium: 142 Bicarb: 35 Pre Dialysis Vitals Pre BP Sit: 129/90 Pre Wt (kg): 66.7 EDW Deviation (kg): 2.7 Temp: 98.4*F Post Dialysis Vitals Post BP Sit: 102/58 Post Wt (kg): 63.5 TREATMENT MEDICATIONS ORDERS Iron Sucrose (Venofer) 100 mg IVP 3X Week During Dialysis 01/28/2025 - 02/18/2025 NO HEPARIN Every Treatment 01/09/2025 - 01/08/2026 BP AND FLUID ASSESSMENT Post BP Sit 102/58 - 01/30/2025 127/97 - 01/28/2025 97/66 - 01/26/2025 Post Wt (kg) 63.5 - 01/30/2025 64.7 - 01/28/2025 66.4 - 01/26/2025 EDW (kg) 64.0 - 01/30/2025 64.0 - 01/28/2025 64.0 - 01/26/2025 Deviation (kg) -0.5 - 01/30/2025 0.7 - 01/28/2025 2.4 - 01/26/2025 ADEQUACY ASSESSMENT % Urea Reduction 67 (11/05/24) 69 (10/10/24) 63 (10/01/24) BUN 52 (11/05/24) 48 (10/10/24) 56 (10/01/24) BUN Post Dialysis 17 (11/05/24) 15 (10/10/24) 21 (10/01/24) Creatinine 13.41 (11/05/24) 16.50 (10/01/24) 14.09 (09/03/24) Bicarbonate (CO2) 24 (11/05/24) 21 (10/01/24) 23 (09/03/24) Sodium 138 (11/05/24) 136 (10/01/24) 140 (09/03/24) Missed Treatments 0 - Last 30 days 0 - Last 60 days ACCESS ASSESSMENT AVFistula Standard Left Forearm Active (In Use) - 10/10/2017 Placed - 10/09/2017 Access Flow 1052 (01/07/25) 974 (12/12/24) 877 (12/10/24) ANEMIA ASSESSMENT Hemoglobin 8.9 (11/12/24) 8.3 (11/05/24) 9.9 (10/29/24) Iron Saturation (TSat) 7 (11/05/24) 18 (10/01/24) 15 (09/08/24) Ferritin 10 (11/05/24) 62 (10/01/24) 80 (09/08/24) Iron 22 (11/05/24) 53 (10/01/24) 36 (09/08/24) TIBC 297 (11/05/24) 301 (10/01/24) 247 (09/08/24) Reticulocyte Hemoglobin 28.6 (10/01/24) 32.6 (07/02/24) 31.2 (04/04/24) MCV 92 (10/01/24) 93 (07/02/24) 95 (04/04/24) BMM ASSESSMENT Calcium 7.8 11/12/24 6.9 11/05/24 7.8 10/29/24 Corrected Calcium 7.0 11/05/24 7.7 10/01/24 7.9 09/03/24 Phosphorus 4.1 11/05/24 5.6 10/01/24 4.0 09/03/24 Calcium Phosphorus Product 28 11/05/24 45 10/01/24 31 09/03/24 PTH 115 11/05/24 129 10/01/24 107 09/03/24 Magnesium 1.8 11/05/24 1.9 10/01/24 2.0 09/03/24 Alkaline Phosphatase 56 11/05/24 62 10/01/24 51 09/03/24 NUTRITION ASSESSMENT Albumin 3.9 11/05/24 4.5 10/01/24 3.9 09/03/24 Potassium 4.4 11/05/24 5.0 10/01/24 4.4 09/03/24 ADDITIONAL LABS WBC 7.02 (10/01/24) 4.14 (07/02/24) 6.34 (04/04/24) Cholesterol 134 (07/02/24) Triglycerides 118 (07/02/24) Hepatitis B Surface Ab ?1,000 (07/02/24) ALT (SGPT) 16 (11/05/24) 11 (10/01/24) 9 (09/03/24) ADDITIONAL COMMENT COMMENTS: Monthly Comprehensive Note Patient is stable Medications reviewed Physical Exam Vital signs: reviewed Lungs: clear Edema: none Impression 1. Adequacy: KT/V was assessed and the dialysis prescription was adjusted as needed. 2. Access: Dialysis access function is acceptable. 3. Hypertension: Blood pressure control and volume status are at goal. 4. Anemia: Labs reviewed and adjustments to regimen made according to anemia management protocol. 5. Mineral Bone Disease: Labs reviewed. Diet and medication adjustment as per protocol. 6. Nutrition: Labs reviewed. Dietary adjustments made in conjunction with classroom technology technician. 7. Transplant: The patient is being evaluated for a kidney transplant. 06/06 stable same hd rx 07/04: stable same HD Rx 08/15: stable, same HD Rx 09/05: stable, same HD Rx 10/10: stable, same HD Rx 11/14: stable, same HD Rx 12/17: hypotensive, increase florinef to 0.2 mg bid, continue midodrine 01/30: stable, same HD Rx Signed by: GLENN CRANDALL MD on 01/30/2025 at 03:20:00 PM Transcribed by: GLENN CRANDALL MD on 01/30/2025 at 03:20:00 PM documented in this encounter Plan of Treatment Not on file documented as of this encounter Visit Diagnoses Diagnosis End stage renal disease Dependence on renal dialysis documented in this encounter Care Teams Air Bag Stripper Relationship Specialty Start Date End Date Darline Simpson MD [address] [place] [id number] PCP - General 02/04/19 documented as of this encounter
--- OUTSIDE RECORDS SUMMARY | 2025-02-05 10:58 | XMS_ITS | Encounter Summary ---
Author Organization [employer] Address [address] [place] [address] 7 [place] [address] Care Team Providers Care Data Integrity Consultant Name Role Phone Dalrine Simpson MD Primary Care Provider [phone] Barrington Pérez CNP Primary Care Provider [phone] Reason for Visit * Reason Onset Date Comments Appointment Request 12/18/2023 Encounter Details Date Type Department Care Team ([facility] Contact Info) Description 12/18/2023 Telephone [facility] MEDICINE [address] [place] [address] Darline Simpson MD [address] [place], [place] [phone] Appointment Request Social History Tobacco Use Types Packs/Day Years Used Date Smoking Tobacco: Some Days Cigarettes Alcohol Use Standard Drinks/Week Comments Defer 0 (1 standard drink = 0.6 oz pur e alcohol) Depression Answer Date Recorded Patient Health Questionnaire-9 Score 9 10/26/2022 Housing Stability Answer Date Recorded What is your housing situation today? I have jacquelin kent 01/20/[address] you li ve. Do you have problems with any of the following? None of the above 01/20/2023 Food Insecurity Answer Date Recorded Within the past 12 months, y ou worried that your food would run out before you got money to buy more: Never True 01/20/2023 Within the past 12 months,th e food you bought just didn't last and you didn't have enough money to get more: Never True Transportation Answer Date Recorded In the past 12 months, has l ack of transportation kept you from medical appts, meetings, work or from getting things needed for daily living? Yes, it has kept me from medical appointments or getting medications. 01/12/2023 Utilities Answer Date Recorded In the past 12 months, has t he electric, gas, oil or water company threatened to shut off services in your home? No 01/20/2023 Depression Answer Date Recorded Patient Health Questionnaire-2 Score 4 10/26/2022 Sex and Gender Information Value Date Recorded Sex Assigned at Male 01/30/2022 10:25 AM EDT Legal Sex Male 10:25 AM EDT Gender Identity Male 01/30/2022 10:25 AM EDT Sexual Orientation Choose not to disclose 2021 10:25 AM EDT documented as of this encounter Miscellaneous Notes * Telephone Encounter - Idania Muller - 12/18/2023 3:24 PM EDT Tc from Liya Camacho with [employer] [facility] requesting to book appt for an A1C dueto insurance requesting another one. documented in this encounter Plan of Treatment Not on file documented as of this encounter Visit Diagnoses Not on filedocumented in this encounter Additional Health Concerns Assessment Noted Time PHQ-9 Depression Total Score: 9 10/27/19 23 9:40 AM EDT documented as of this encounter Care Teams Data Integrity Consultant Relationship Specialty Start Date End Date Darline Simpson MD [address] [place] [address] PCP - General Family Medicine 02/20/14 01/28/25 Barrington Pérez CNP [address] [place] [address] PCP - General Family Medicine 01/29/25 documented as of this encounter
--- OUTSIDE RECORDS SUMMARY | 2025-02-05 10:58 | XMS_ITS | Encounter Summary ---
Author Organization [employer] Address [address] [place] [address] 7 [place] [address] Care Team Providers Care Manager Budget Name Role Phone Darline Simpson MD Primary Care Provider [phone] Barrington Pérez CNP Primary Care Provider [phone] Reason for Visit * Reason Comments Med Refill Encounter Details Date Type Department Care Team ([facility] Contact Info) Description 11/30/2024 Refill [facility] CHC MED & PEDS [address] [place] [address] Darline Simpson MD [address] [place] [address] Social History Tobacco Use Types Packs/Day Years Used Date Smoking Tobacco: Some Days Cigarettes Alcohol Use Standard Drinks/Week Comments Defer 0 (1 standard drink = 0.6 oz pur e alcohol) Depression Answer Date Recorded Patient Health Questionnaire-9 Score 4 10/28/2024 Patient Health Questionnaire-9 Score 4 10/28/2024 Last PHQ-9: Questionnaire Data Not on file 0 10/28/2024 Housing Stability Answer Date Recorded What is your housing situation today? I have jacquelin kent 01/07/[address] you li ve. Do you have problems with any of the following? None of the above 01/07/2024 Food Insecurity Answer Date Recorded Within the past 12 months, y ou worried that your food would run out before you got money to buy more: Never True 01/07/2024 Within the past 12 months,th e food you bought just didn't last and you didn't have enough money to get more: Never True 10/2023 Transportation Answer Date Recorded In the past 12 months, has l ack of transportation kept you from medical appts, meetings, work or from getting things needed for daily living? No 04/22/2024 Utilities Answer Date Recorded In the past 12 months, has t he electric, gas, oil or water company threatened to shut off services in your home? No 01/07/2024 Depression Answer Date Recorded Patient Health Questionnaire-2 Score 0 10/28/2024 Internet Access Answer Date Recorded Internet Access Q1 Yes 01/07/2024 Internet Access Q2 Not on file 01/07/2024 Sex and Gender Information Value Date Recorded Sex Assigned at Male 01/30/2022 10:25 AM EDT Legal Sex Male 10:25 AM EDT Gender Identity Male 01/30/2022 10:25 AM EDT Sexual Orientation Choose not to disclose 2021 10:25 AM EDT documented as of this encounter Plan of Treatment Not on file documented as of this encounter Visit Diagnoses Not on filedocumented in this encounter Additional Health Concerns Assessment Noted Time PHQ-9 Depression Total Score: 4 10/29/19 9:47 AM EDT documented as of this encounter Care Teams Manager Budget Relationship Specialty Start Date End Date Darline Simpson MD [address] [place] [address] PCP - General Family Medicine 02/20/14 01/28/25 Barrington Pérez CNP [address] [place] [address] PCP - General Family Medicine 01/29/25 documented as of this encounter
--- OUTSIDE RECORDS SUMMARY | 2025-02-05 10:58 | XMS_ITS | Clinical Summary ---
Author Organization [employer] Address [address] [place] [address] [address] [place] [address] Care Team Providers Care Commissary Representative Name Role Phone PérezYosefchinoshy STANLEY Primary Care Provider [phone] Allergies Active Allergy Reactions Criticality Noted Date Comments Heparin High 09/19/2017 Other reaction(s): Vomiting Penicillins Swelling High 10/08/2014 Other reaction(s): anaphylaxis, Anaphylaxis Zolpidem Swelling 10/13/2014 Other reaction(s): edema, Other (see comments) Fluid retention in fingers Medications acetaminophen (Tylenol 8 Hour) 650 MG ER tablet take 1 Tablet by oral route every 8 hours as needed 04/06/19 22 Active aspirin 81 MG EC tablet take 1 tablet by oral route every day 03/02/20 20 Active calcitriol (Rocaltrol) 0.5 MCG capsule take 1 capsule by oral route every day 07/30/19 19 Active Calcium Carbonate-Kelly min D (Liquid Calcium/Vitami n D) 600-5 MG-MCG capsule take 1 tablet by oral route every day 10/15/19 19 Active carvedilol (Coreg) 25 MG tablet take 1 tablet by oral route 2 times every day with food 02/14/20 18 Active phenol (Chloraseptic) 1.4 % liquid Apply one spray to the throat, keep in place 15 seconds, then spit out. Apply every 2 hours as needed 06/24/19 21 Active Oyster Shell Calcium 500 MG tablet TAKE 2 TABLETS BY MOUTH EVERY DAY AT BEDTIME 10/21/19 23 Active Ferric Citrate (Auryxia) 1 GM 210 MG(Fe) tablet Take 630 mg by mouth. 05/11/19 22 Active albuterol (Ventolin HFA) 108 (90 Base) MCG/ACT inhaler Inhale 2 puffs every 4 (four) hours if needed for wheezing. 18 g 3 04/29/19 25 Active Multiple Vitamin (Daily-Chris Multivitamin) tablet Take 1 tablet by mouth in the morning. 90 tablet 3 04/29/19 25 Active Blood Pressure kit Check blood pressure daily 1 kit 04/29/19 25 Active hydrocortisone (Proctosol HC) 2.5 % rectal cream Insert into the rectum if needed in the morning and at bedtime for hemorrhoids. 28 g 1 10/17/19 25 Active witch demi-glycerin (Tucks) pad Apply topically if needed for irritation or hemorrhoids. 96 each 3 10/17/19 25 Active calcium acetate (Phoslo) 667 MG tablet TAKE 1 TABLET (667 MG) BY MOUTH WITH BREAKFAST, WITH LUNCH, AND WITH EVENING MEAL. 270 tablet 12/05/19 25 Active ergocalciferol (Vitamin D2) 1.25 MG (49015 UT) capsule TAKE 1 CAPSULE BY MOUTH ONE TIME PER WEEK 12 capsule 01/07/20 25 Active B Ubbnafu-X-Cdyn c Acid (Lupe-Chris) tablet TAKE 1 TABLET BY MOUTH EVERY DAY 90 tablet 01/29/20 25 Active B Tchhbbo-A-Bitz c Acid (Lupe-Chris) tablet TAKE 1 TABLET BY MOUTH EVERY DAY 90 tablet 11/07/19 25 025 Discontinued Active Problems Problem Noted Date Diagnosed Date Hemorrhoids 10/28/2024 Overview (10/28/2024): Referred to surg Cont Prep H Hyperparathyroidism 10/26/2022 Chronic congestive heart failure 12/18/2019 Dependence on renal dialysis 12/18/2019 End stage renal disease 12/18/2019 Focal segmental glomerulosclerosis 12/18/2019 Hyperlipidemia 12/18/2019 History of alcohol abuse 12/18/2019 Gastritis 12/18/2019 Asthma 12/18/2019 Encounters Date Type Department Care Team Description 01/28/2025 Refill [facility] MED [facility] PEDS [address] [place] [address] Ashlie Kunz MD 01/25/2025 Refill [facility] MED & PEDS [address] [place] [address] Melly Lui MD 01/05/2025 Refill [facility] CHC MED & PEDS [address] [place] [address] Darline Simpson MD 12/09/2024 Refill [facility] CHC MED & PEDS [address] [place] [address] Melly Lui MD 12/04/2024 2:00 PM EDT Office Visit [facility] MED [facility] PED[facility] [address] [place] [address] Melly Lui MD Dependence on renal dialysis ([facility] (Primary Dx); Dental abscess 12/04/2024 Refill [facility]C MED & PEDS [address] [place] [address] Melly Lui MD 12/04/2024 Travel 12/04/2024 Telephone [facility] MEDICINE [address] [place], [place] [phone] Darline Simpson MD Nurse Triage 11/30/2024 Refill [facility] MED & PEDS [address] [place] [address] Darline Simpson MD 11/05/2024 Refill [facility] MED & PEDS [address] [place] [address] Darline Simpson MD from Last 3 Months Immunizations Immunization Administration Dates Next Due INFLUENZA VACCINE QUADRIVALE NT RECOMBINANT PRESERVATIVE FREE RIV4 01/15/2023 Influenza, seasonal, injecta ble, preservative free 01/15/2024 Pfizer Covid-19 Vaccine 5-11 02/25/2021,07/15/19 21,06/22/2020 Pneumococcal Conjugate PCV 20 10/28/2024 Pneumococcal Polysaccharide PPSV23 01/03/2011 TD (adult), 2 Lf tetanus tox oid, preservative free, adsorbed 10/23/2017 Tdap 01/09/2013 Social History Tobacco Use Types Packs/Day Years Used Date Smoking Tobacco: Some Days Cigarettes Tobacco Cessation:Ready to Q uit: Not Asked; Counseling Given: Not Answered Alcohol Use Standard Drinks/Week Comments Defer 0 [...] not to disclose 2021 10:25 AM EDT Last Filed Vital Signs Vital Sign Reading Time Taken Comments Blood Pressure 80/40 12/04/2024 2:04 PM EDT Pulse 78 12/04/2024 2:04 PM EDT Temperature 36.6 C (97.9 F) 12/04/2024 2:04 PM EDT Respiratory Rate 18 12/04/2024 2:04 PM EDT Oxygen Saturation 98% 12/04/2024 2:04 PM EDT Inhaled Oxygen Concentration - - Weight 64.6 kg (142 lb 6.4 oz) 12/04/2024 2:04 P M EDT Height 172 cm (5' 7.72 ) 12/04/2024 2:04 PM EDT Body Mass Index 21.83 12/04/2024 2:04 PM EDT Plan of Treatment Health Maintenance Due Date Last Done Comments CT Colonography 1974 Colonoscopy 1974 Colorectal Cancer Screening 1974 FIT DNA/Cologuard 1974 FIT 1974 FOBT 1974 HIV Screening 1974 Sigmoidoscopy 1974 Alcohol/Substance Use Screening 1986 Family Planning (PISQ) 1989 Hepatitis C Screening 1992 Hepatitis B Vaccines (1 of 3 - 19+ 3-dose series) 1993 Zoster Vaccines (1 of 2) 2024 COVID-19 Vaccine ( - season) 2024 02/25/2021, 07/14/2020, 06/22/2020 Influenza Vaccine (#1) 2024 , 01/15/2023, 01/14/2021, Additional history exists SDOH Screening 04/22/2025 04/22/2024 Depression Screening 10/28/2025 10/28/2024, 10/29/19 25 Disability Screening 10/28/2025 10/28/2024 Tobacco Screening 10/28/2025 10/28/2024 DTaP/Tdap/Td Vaccines (3 - Td or Tdap) 10/24/2027 10/23/2017, 01/09/2013 Lipid Panel 01/21/2029 01/22/2024 RSV Patients and Patients Aged 60 years or older (1 - 1-dose 75+ series) 2049 Pneumococcal Vaccine: 50+ Years Completed 10/28/2024, 01/03/2011 HIB Vaccines Aged Out No longer eligi ble based on patient's age to complete this topic HPV Vaccines Aged Out No longer eligi ble based on patient's age to complete this topic Hepatitis A Vaccines Aged Out No long er eligible based on patient's age to complete this topic IPV Vaccines Aged Out No longer eligi ble based on patient's age to complete this topic Meningococcal B Vaccine Aged Out No l onger eligible based on patient's age to complete this topic Meningococcal Vaccine Aged Out No savage abhijeet eligible based on patient's age to complete this topic RSV under 20 months Aged Out No longe r eligible based on patient's age to complete this topic Rotavirus Vaccines Aged Out No longer eligible based on patient's age to complete this topic Procedures Procedure Name Priority Date/Time Associated Diagnosis Comments LIPID PANEL, STANDARD Routine 01/22/2024 2:08 PM EDT Chronic congestive heart failure, unspecified heart failure type (CMS/HCC) from Last 3 Months or Most Recently Relevant to Health Maintenance Results * (ABNORMAL) Lipid Panel, Standard (01/22/2024 2:08 PM EDT) Triglycerides 200(H) <150 mg/dL [facility] Comment:Desirable Triglyceri de: less than 150 mg/dLBorderline High Triglyceride 150-199 mg/dLHigh Triglyceride: 200-499 mg/dLVery High Triglyceride: greater than or equal to 5OO mg/dL Cholesterol 193 <200 mg/dL [facility] Comment:Desirable Cholestero l: less than 200 mg/dLBorderline High Cholesterol: 200-239 mg/dLHigh Cholesterol: greater than 239 mg/dL LDL Cholesterol Calculated 106(H) <100 mg/dL [facility] Comment:Desirable LDL: less than 100 mg/dLNear Optimal/Above Optimal LDL: 110- 129 mg/dLBorderline High LDL: 130-159 mg/dLHigh LDL: 160-189 mg/dLVery High LDL: greater than or equal to 190 mg/dL HDL Cholesterol 47 >40 mg/dL [facility] Comment:Desirable HDL: great er than 40 mg/dL Note: This HDL assay may give artificially low results in patients with liver disease. Blood Venous blood specimen / Unknown 01/22/2024 2:08 PM EDT 01/22/2024 5:37 PM EDT us Darline Simpson MD LAB BLOOD ORDERABLES Final Resul t [facility] [address] [place] [phone] from Last 3 Months or Most Recently Relevant to Health Maintenance Insurance [facility] C3 Care Teams Commissary Representative Relationship Specialty Start Date End Date Barrington Pérez CNP [address] [place] [address] PCP - General Family Medicine 01/29/25
--- OUTSIDE RECORDS SUMMARY | 2025-02-05 10:58 | XMS_ITS | Encounter Summary ---
Author Organization [employer] Address [address] [place] [address] 7 [place] [address] Care Team Providers Care Supervisor Feed House Name Role Phone Darline Simpson MD Primary Care Provider [phone] Barrington Pérez CNP Primary Care Provider [phone] Reason for Visit * Reason Comments Med Change Request Encounter Details Date Type Department Care Team ([facility] Contact Info) Description 01/25/2025 Refill [facility] CHC MED & PEDS [address] [place] [address] Melly Lui MD [address] [place] [address] Social History Tobacco Use Types Packs/Day Years [...] documented as of this encounter Care Teams Supervisor Feed House Relationship Specialty Start Date End Date Darline Simpson MD [address] [place] [address] PCP - General Family Medicine 02/20/14 01/28/25 Barrington Pérez CNP [address] [place] [address] PCP - General Family Medicine 01/29/25 documented as of this encounter
--- OUTSIDE RECORDS SUMMARY | 2025-02-05 10:58 | XMS_ITS | Encounter Summary ---
Author Organization [facility], Address [address] [place] [address] Phone Care Team Providers Care Catering Manager Name Role Phone Darline Simpson MD Primary Care Provider [phone] Encounter Details Date Type Department Care Team (Late st Contact Info) Description 06/16/2021 Documentation Only [facility], [address] [place] [address] Adam Maldonado MD [address] [place] [address] [place] [phone] Social History Tobacco Use Types Packs/Day Years [...] on filedocumented in this encounter Care Teams Catering Manager Relationship Specialty Start Date End Date Darline Simpson MD [address] [place] [address] PCP - General 02/04/19 documented as of this encounter
--- OUTSIDE RECORDS SUMMARY | 2025-02-05 10:58 | XMS_ITS | Encounter Summary ---
Author Organization [employer] Address [address] [place] [address] 7 [place] [address] Care Team Providers Care Towerman Name Role Phone Darline Simpson MD Primary Care Provider [phone] Barrington Pérez CNP Primary Care Provider [phone] Reason for Visit * Reason Comments Med Change Request Encounter Details Date Type Department Care Team ([facility] Contact Info) Description 12/09/2024 Refill [facility] CHC MED & PEDS [address] [place] [address] Melly Lui MD [address] [place] [address] Social History Tobacco Use Types Packs/Day Years [...] documented as of this encounter Care Teams Towerman Relationship Specialty Start Date End Date Darline Simpson MD [address] [place] [address] PCP - General Family Medicine 02/20/14 01/28/25 Barrington Pérez CNP [address] [place] [address] PCP - General Family Medicine 01/29/25 documented as of this encounter
--- OUTSIDE RECORDS SUMMARY | 2025-02-05 10:58 | XMS_ITS | Encounter Summary ---
Author Organization [employer] Address [address] [place] [address] 7 [place] [address] Care Team Providers Care Stone Driller Name Role Phone Darline Simpson MD Primary Care Provider [phone] Barrington Pérez CNP Primary Care Provider [phone] Reason for Visit * Reason Onset Date Comments PT1 02/19/2023 Encounter Details Date Type Department Care Team ([facility] Contact Info) Description 02/19/2023 Telephone [facility] MED & PEDS [address] [place] [address] Darline Simpson MD [address] [place] [address] PT1 Social History Tobacco Use Types Packs/Day Years [...] encounter Miscellaneous Notes * Telephone Encounter - [place] - 02/20/2023 12:05 PM EST PT-1 submitted for patient. They will receive a letter of approval or denial in the mail. * Telephone Encounter - Idania Muller - 02/19/2023 3:45 PM EST PT1 Name of facility: [facility] Specialty: Dental [facility] Location: [address] [place] [address] Date: 03/06/2023 Time: 12:00 pm fax: n/a Phone: n/a wheelchair: n/a Dressmaker Garment Fitter: n/a All future Visits documented in this encounter Plan of Treatment Not on file documented as of this encounter Visit Diagnoses Not on filedocumented in this encounter Additional Health Concerns Assessment Noted Time PHQ-9 Depression Total Score: 9 10/27/19 23 9:40 AM EDT documented as of this encounter Care Teams Stone Driller Relationship Specialty Start Date End Date Darline Simpson MD [address] [place] [address] PCP - General Family Medicine 02/20/14 01/28/25 Barrington Pérez CNP [address] [place] [address] PCP - General Family Medicine 01/29/25 documented as of this encounter
== END 2025-02-05 10:17 | disposition home or self-care (01) ==
LOC: HO.HGS 09:44
PROVIDERS: PCP Student in an Organized Health Care Education/Training Program; Visit Provider Surgery
DX: K64.8 Other hemorrhoids (principal)
CPT/HCPCS: 46600; 99203

== ENCOUNTER → 2025-02-05 09:43 | Outpatient (BNVA) | payer MEDICAID, SELFPAY | PROVIDERS: PCP Student in an Organized Health Care Education/Training Program; Visit Provider Surgery | DX: K64.9 Unspecified hemorrhoids (principal) | CPT/HCPCS: 46600; 99202 ==

== ENCOUNTER 2025-03-05 13:42 | Emergency (ER) | payer MEDICAID, SELFPAY ==
--- NOTE | ~2025-03-05 | US_ITS ---
EXAMINATION: US SCROTUM WITH DOPPLER COMPLETE, US SCROTUM HISTORY: scrotal mass pain. COMPARISON: There are no prior studies available for comparison. FINDINGS: Real-time grayscale ultrasound imaging of the scrotum was performed. Color and spectral Doppler analysis was also performed. RIGHT TESTICLE: The right testis measures 4.5 x 1.6 x 2.7 cm and demonstrates normal homogeneous echotexture. There is a 5 x 6 x 4 mm cyst in the midportion of the testis. No solid mass is identified. The right testis demonstrates normal arterial and venous color Doppler and spectral waveforms. RIGHT EPIDIDYMIS: Normal in size, shape, and vascularity. There is a 4 mm epididymal head cyst. LEFT TESTICLE: The left testis measures 4.5 x 1.6 x 2.7 cm and demonstrates normal homogeneous echotexture. No masses are seen. The left testis demonstrates normal arterial and venous color Doppler and spectral waveforms. LEFT EPIDIDYMIS: Normal in size, shape, and vascularity. There is a 4 mm epididymal head cyst. VARICOCELE: None. HYDROCELE: No significant hydrocele is seen. OTHER COMMENTS: Inferior to the testes, there is a complex cystic and solid-appearing mass measuring 3.1 x 3.5 x 2.3 cm. US/US scrotum doppler IMPRESSION: 3.1 x 3.5 x 2.3 cm complex cystic and solid mass inferior to the testes which could represent abscess, hematoma, or neoplasm. Urologic consultation is suggested. Normal vascular flow is demonstrated to both testes. Electronically signed by: Waqar Whitaker MD 03/05/2025 03:28 PM [facility]
--- NOTE | ~2025-03-05 | US_ITS ---
EXAMINATION: US SCROTUM WITH DOPPLER COMPLETE, US SCROTUM HISTORY: scrotal mass pain. COMPARISON: There are no prior studies available for comparison. FINDINGS: Real-time grayscale ultrasound imaging of the scrotum was performed. Color and spectral Doppler analysis was also performed. RIGHT TESTICLE: The right testis measures 4.5 x 1.6 x 2.7 cm and demonstrates normal homogeneous echotexture. There is a 5 x 6 x 4 mm cyst in the midportion of the testis. No solid mass is identified. The right testis demonstrates normal arterial and venous color Doppler and spectral waveforms. RIGHT EPIDIDYMIS: Normal in size, shape, and vascularity. There is a 4 mm epididymal head cyst. LEFT TESTICLE: The left testis measures 4.5 x 1.6 x 2.7 cm and demonstrates normal homogeneous echotexture. No masses are seen. The left testis demonstrates normal arterial and venous color Doppler and spectral waveforms. LEFT EPIDIDYMIS: Normal in size, shape, and vascularity. There is a 4 mm epididymal head cyst. VARICOCELE: None. HYDROCELE: No significant hydrocele is seen. OTHER COMMENTS: Inferior to the testes, there is a complex cystic and solid-appearing mass measuring 3.1 x 3.5 x 2.3 cm. US/US scrotum IMPRESSION: 3.1 x 3.5 x 2.3 cm complex cystic and solid mass inferior to the testes which could represent abscess, hematoma, or neoplasm. Urologic consultation is suggested. Normal vascular flow is demonstrated to both testes. Electronically signed by: Waqar Whitaker MD 03/05/2025 03:28 PM [facility] [place]
[2025-03-05 14:20] VITALS: BP 93/63; PULSE 78; RESP 16; TEMP 36.8; O2SAT 98; BMI 23.2
--- NOTE | 2025-03-05 14:25 | ED.GENADULT ---
HPI - General Adult General Chief complaint: Skin/Abscess/Foreign Body Stated complaint: testicular cyst Time Seen by Provider: 03/05/25 16:13 History of Present Illness ED Provider: mary BRINK narrative: Date & Time: 2025-03-05 Patient Name: BIBI: N: Author / Clinician: Celestino Ortega MD Chief Complaint Right scrotal swelling with pain. History of Present Illness The patient presents with swelling on the posterior aspect of the right side of the scrotum that began approximately three weeks ago and has worsened this week. He reports pain associated with the swelling today. He also reports that the swelling makes it difficult for him to sit. He denies penile discharge and has not noted lesions elsewhere on the penis. He is anuric and does not produce urine outside of his scheduled hemodialysis sessions. Last dialysis session was yesterday without complications. Past Medical History - End-stage renal disease on hemodialysis - Hypertension - No history of diabetes mellitus Review of Systems - Genitourinary: Positive for right scrotal swelling and pain. Denies penile discharge or other lesions. - Constitutional, cardiovascular, respiratory, gastrointestinal, neurologic, musculoskeletal, dermatologic, psychiatric: not discussed. Physical Exam: Emergency Department Course The lesion was visually assessed via patient-provided photographs. The clinician discussed that the mass appears to require surgical excision and attempted to expedite the existing urology appointment (currently scheduled for Mar). Pain control was addressed; the patient requested and will receive pain medication. No additional acute interventions were performed in the ED. Assessment & Plan Diagnosis: Right scrotal mass/swelling. Plan: - Provide analgesic medication upon discharge for symptomatic pain control. - Email/facilitate expedited urology evaluation prior to the currently scheduled Mar appointment. Disposition Discharged from the ED with plan for outpatient urology follow-up as above. Related Data Home Medications ?Medication ?Instructions ?Recorded ?Confirmed albuterol sulfate 90 mcg/actuation 2 puff inhalation QID 01/04/20 01/04/20 aerosol inhaler (ProAir HFA) aspirin 81 mg tablet 81 mg PO DAILY 01/04/20 01/04/20 famotidine 20 mg tablet 20 mg PO BID 01/04/20 01/04/20 calcium acetate(phosphat bind) 667 667 mg PO BID 02/05/25 mg tablet calcium carbonate (Fermin-Gest 400 mg PO TID 02/05/25 Antacid) ferric citrate 210 mg iron tablet 2 tab PO TID 02/05/25 (Auryxia) fludrocortisone 0.1 mg tablet 0.1 mg PO 02/05/25 hydrocortisone 2.5 % topical cream IN 02/05/25 with perineal applicator metoprolol succinate 25 mg 25 mg PO DAILY 02/05/25 tablet,extended release 24 hr midodrine 5 mg tablet 5 mg PO TID blood pressure 02/05/25 multivitamin (One Daily 1 tab PO QAM 02/05/25 Multivitamin tablet) spironolactone 25 mg tablet 25 mg PO DAILY 02/05/25 vitamin B complex-vitamin C-folic 1 tab PO DAILY 02/05/25 acid 0.8 mg tablet (Lupe-Chris) Previous Rx's ?Medication ?Instructions ?Recorded clindamycin HCl 150 mg capsule 450 mg (3 x 150 mg) PO Q8H 10 days 07/18/21 #90 caps oxycodone 5 mg tablet 5 mg PO BID PRN pain #7 tabs 03/05/25 Allergies Allergy/AdvReac Type Severity Reaction Status Date / Time Penicillins (PENICILLINS) Allergy Intermediate SWELLING Verified 03/05/25 14:22 zolpidem (From AMBIEN) Allergy Mild SWELLING Verified 03/05/25 14:22 penicillin V Allergy Unknown swelling Verified 03/05/25 14:22 heparin (HEPARIN) AdvReac Intermediate NAUSEA/VOMI Verified 03/05/25 14:22 TING PMFSH Past Medical History Medical History (Updated 03/06/25 @ 00:00 by Long Álvarez) Bleeding hemorrhoids Junctional tachycardia Metal bone fixation hardware in place Elevated troponin Congestive cardiomyopathy End stage renal disease on dialysis Hypertension Social History Social History Household Members: None Housing: House Housing Other:: RENTS A ROOM Do you presently have visiting nurse or other home services: No Alcohol intake: never Comment: patient sleeping Patient Tobacco Use Status: Former Tobacco user Cigarette Packs Per Day: 0.1 Cigarettes Per Day: 2.0 Years Smoked: 35 Second Hand Smoke Exposure: No Substance Use Type: Marijuana Advance Directives: No Advance Directives Information Provided: No service: No Current occupational status: unemployed Physical Exam ED Exam Exam: GENERAL: Well appearing. No apparent distress. Alert. HEAD/NECK: No visual trauma. EYES: Normal to inspection. No conjunctival erythema. No discharge. ENMT: Hearing grossly normal. External nose normal. RESPIRATORY: Respiratory effort normal. CARDIOVASCULAR: Additional details (Grossly well perfused). SKIN: No jaundice. NEUROLOGICAL: Alert. Moving all extremities x4. Additional details (No gross motor deficits. Normal tone. ). PSYCHIATRIC: Alert. Appearance appropriate for situation. He defers /scrotal exam but shows me a photo that he took this morning of the inferior aspect of his scrotum see below Vital Signs: Vital Signs - 24 hr 03/05/25 14:20 03/05/25 17:23 Temperature 98.2 F 98.2 F Pulse Rate 78 78 Respiratory Rate 16 16 Blood Pressure 93/63 93/63 Pulse Oximetry 98 98 Oxygen Delivery Method Room Air Room Air BMI result Body Mass Index 23.2 Course Course Course Narrative: RME: 49-year-old male renal patient's dialysis Sunday presents to ED for testicular masses for 1 week that is increased in size and it is painful. Patient denies any fever chills nausea vomiting abdominal pain or any history a chance of STIs. Labs ultrasound ordered Medical Decision Making Lab Data 03/05/25 15:25 03/05/25 15:25 Labs: Lab Results 03/05/25 Range/Units 15:25 WBC 7.8 (4.8-10.8) X10*3/uL RBC 4.14 L (4.60-5.80) X10*6/uL Hgb 11.7 L (14.0-18.0) g/dl Hct 37.3 L (42.0-52.0) % MCV 90.1 (80.0-98.0) fL MCH 28.3 (27.0-33.0) pg MCHC 31.4 (31.0-36.0) g/dl RDW 15.3 (11.0-16.0) % Plt Count 168 (160-400) X10*3/uL MPV 10.0 (9.4-12.4) fL Immature Gran % (Auto) 0.3 (0.0-0.4) % Neut % (Auto) 75.0 H (45-73) % Lymph % (Auto) 13.1 L (20-40) % Linn % (Auto) 8.7 (2-11) % Eos % (Auto) 2.4 (0-4) % Baso % (Auto) 0.5 (0-2) % Lymph # (Auto) 1.0 L (1.2-4.9) X10*3/uL Linn # (Auto) 0.7 (0.1-1.2) X10*3/uL Eos # (Auto) 0.2 (0.0-0.4) X10*3/uL Baso # (Auto) 0.0 (0.0-0.2) X10*3/uL Abs Immat Gran (auto) 0.02 (0.00-0.03) X10*3/uL Absolute Neuts (auto) 5.9 (2.0-8.3) x10*3/uL Absolute Nucleated RBC 0.000 (0.0-0.012) X10*3/uL Nucleated RBC % (auto) 0.0 (0.0-0.2) /100WBC Sodium 145 (135-145) mmol/L Potassium 3.8 (3.3-5.1) mmol/L Chloride 105 (96-108) mmol/L Carbon Dioxide 27 (22-29) mmol/L Anion Gap 17 (12-20) BUN 26 H (9-16) mg/dL Creatinine 10.85 H* (0.5-1.4) mg/dL Estim Creat Clear Calc 7.8 Estimated GFR 5 Random Glucose 87 (60-115) mg/dL Calcium 7.5 L D (8.4-10.2) mg/dL Total Bilirubin 0.3 (0.0-1.0) mg/dL AST 14 (5-37) U/L ALT 11 (0-40) U/L Alkaline Phosphatase 68 (39-117) U/L Total Protein 6.8 (6.5-8.0) g/dL Albumin 4.4 (3.5-5.0) g/dL Discharge Plan Discharge Clinical Impression: Scrotal mass Patient Disposition: Home, Self-Care Instructions: Scrotal Pain (ED) Additional Instructions: An ultrasound showed a solid and cystic mass of your scrotum this is concerning for possible malignancy or cancer. We contacted Urology to try to expedite your March 25 appointment they will reach out to you if they are able to get you a sooner appointment. Prescriptions: New oxycodone 5 mg tablet 5 mg PO BID PRN (Reason: pain) Qty: 7 0RF Rx Instructions: Partial Fill upon patient request. No Action famotidine 20 mg Tablet 20 mg PO BID aspirin 81 mg Tablet 81 mg PO DAILY albuterol sulfate [ProAir HFA] 90 mcg/actuation Hfa Aerosol Inhaler 2 puff INHALATION QID clindamycin HCl 150 mg capsule 450 mg PO Q8H 10 Days Qty: 90 0RF calcium acetate(phosphat bind) 667 mg tablet 667 mg PO BID multivitamin [One Daily Multivitamin] Tablet 1 tab PO QAM midodrine 5 mg tablet 5 mg PO TID spironolactone 25 mg tablet 25 mg PO DAILY hydrocortisone 2.5 % cream with perineal applicator IN calcium carbonate [Fermin-Gest Antacid] 200 mg calcium (500 mg) tablet,chewable 400 mg PO TID Lupe-Chris 0.8 mg tablet 1 tab PO DAILY metoprolol succinate 25 mg tablet extended release 24 hr 25 mg PO DAILY fludrocortisone 0.1 mg tablet 0.1 mg PO ferric citrate [Auryxia] 210 mg iron tablet 2 tab PO TID Interventions: ED Discharge Assessment Last Done: 03/05/25 17:23 Discharge Date/Time: 03/05/25 17:24 Print Language: Dutch
[2025-03-05 15:30] LABS: MANUAL DIFF FLAG NO
[2025-03-05 15:36] LABS: Hematocrit 37.3 % (42.0-52.0); Hemoglobin 11.7 g/dl (14.0-18.0); Imm Gran Abs Auto 0.02 X10*3/uL (0.00-0.03); Imm Gran Pct Auto 0.3 % (0.0-0.4); Lymphocytes Absolute Auto 1.0 X10*3/uL (1.2-4.9); Mean Corpuscular HGB Conc 31.4 g/dl (31.0-36.0); Mean Corpuscular Hemoglobin 28.3 pg (27.0-33.0); Mean Corpuscular Volume 90.1 fL (80.0-98.0); NRBC Abs Auto 0.000 X10*3/uL (0.0-0.012); NRBC Pct Auto 0.0 /100WBC (0.0-0.2); Platelet Count 168 X10*3/uL (160-400); Red Blood Count 4.14 X10*6/uL (4.60-5.80); White Blood Count 7.8 X10*3/uL (4.8-10.8)
[2025-03-05 15:50] LABS: Alanine Aminotransferase 11 U/L (0-40); Albumin Level 4.4 g/dL (3.5-5.0); Alkaline Phosphatase 68 U/L (39-117); Anion Gap 17 (12-20); Aspartate Amino Transferase 14 U/L (5-37); Blood Urea Nitrogen 26 mg/dL (9-16); Calcium 7.5 mg/dL (8.4-10.2); Carbon Dioxide 27 mmol/L (22-29); Chloride 105 mmol/L (96-108); Creatinine Clr Calc Pharmacy 7.8; Estimated Glomerular Filt Rate 5; Potassium 3.8 mmol/L (3.3-5.1); Sodium 145 mmol/L (135-145); Total Protein 6.8 g/dL (6.5-8.0)
[2025-03-05 17:23] VITALS: BP 93/63; PULSE 78; RESP 16; TEMP 36.8; O2SAT 98
--- OUTSIDE RECORDS SUMMARY | 2025-03-05 22:12 | XMS_ITS | Encounter Summary ---
Author Organization [employer] Address [address] [place] [address] 7 [place] [address] Care Team Providers Care Extension Course Coordinator Name Role Phone Darline Simpson MD Primary Care Provider [phone] Barrington Pérez CNP Primary Care Provider [phone] Reason for Visit * Reason Onset Date Comments Appointment Request 12/18/2023 Encounter Details Date Type Department Care Team ([facility] Contact Info) Description 12/18/2023 Telephone [facility] [address] [place] [address] Darline Simpson MD [address] [place], [place] [phone] Appointment Request Social History Tobacco Use Types [...] PM EDT Tc from Liya Camacho with [employer] requesting to book appt for an A1C dueto insurance requesting another one. documented in this encounter Plan of Treatment Not on file documented as of this encounter Visit Diagnoses Not on filedocumented in this encounter Additional Health Concerns Assessment Noted Time PHQ-9 Depression Total Score: 9 10/27/19 23 9:40 AM EDT documented as of this encounter Care Teams Extension Course Coordinator Relationship Specialty Start Date End Date Darline Simpson MD [address] [place] [address] PCP - General Family Medicine 02/20/14 01/28/25 Barrington Pérez CNP [address] [place] [address] PCP - General Family Medicine 01/29/25 documented as of this encounter
--- OUTSIDE RECORDS SUMMARY | 2025-03-05 22:12 | XMS_ITS | Encounter Summary ---
Author Organization [facility], Address [address] [place] [address] Phone Care Team Providers Care Nail Cutter Name Role Phone Darline Simpson MD Primary Care Provider [phone] Encounter Details Date Type Department Care Team (Late st Contact Info) Description 02/06/2025 Orders Only [facility] [address] [place] [address] Adam Maldonado MD [address] [place] [address] [place] [address] Social History Tobacco Use Types Packs/Day Years Used Date Smoking Tobacco: Former Cigarettes 0 Q uit: 07/12/2014 Smokeless Tobacco: Never Alcohol [...] on file documented as of this encounter Procedures Procedure Name Priority Date/Time Associated Diagnosis Comments CHEMISTRY Routine 02/06/2025 documented in this encounter Results * [facility] (02/06/2025) Potassium 3.6 3.5 - 5.1 mEq/L [facility] 02/06/2025 02/07/2025 12: 15 PM EST Narrative [facility] - 02/07/2025 Unless otherwise specified, test(s) performed at: [facility] [address] [place] [id number] WRAPPING MACHINE HELPER: Andres Taylor M.D. For any questions, please call customer service at FREQUENCY:OTHER Resulting Agency Comment Specimen source: Serum us Adam Maldonado MD LAB BLOOD ORDERABLES Final Re sult [facility] See order comments or contact performing lab Unknown, [place] documented in this encounter Visit Diagnoses Not on filedocumented in this encounter Care Teams Nail Cutter Relationship Specialty Start Date End Date Darline Simpson MD [address] [place] [id number] PCP - General 02/04/19 documented as of this encounter
--- OUTSIDE RECORDS SUMMARY | 2025-03-05 22:12 | XMS_ITS | Encounter Summary ---
Author Organization [facility], Address [address] [place] [address] Phone Care Team Providers Care Horticultural Therapist Name Role Phone Darline Simpson MD Primary Care Provider Encounter Details Date Type Department Care Team (Late st Contact Info) Description 02/25/2025 Orders Only [facility] [address] [place] [address] Adam Maldonado MD [address] [place] [address] [place] [address] Social History Tobacco Use Types Packs/Day Years [...] Procedure Name Priority Date/Time Associated Diagnosis Comments HEMATOLOGY Routine 02/25/2025 CHEMISTRY Routine 02/25/2025 documented in this encounter Results * (ABNORMAL) [facility] (02/25/2025) Potassium 4.2 3.5 - 5.1 mEq/L [facility] Calcium 7.9(L) 8.4 - 10.2 mg/dL [facility] 02/25/2025 02/27/2025 10: 23 AM EST Narrative [facility] - 02/27/2025 Unless otherwise specified, test(s) performed at: [facility], [address] [place] [address] MASTER STEAM YACHT: Andres Taylor M.D. For any questions, please call customer service at FREQUENCY:OTHER Resulting Agency Comment Specimen source: Serum Adam Maldonado MD LAB BLOOD ORDERABLES Final Re sult Performing Organization Address City/[facility]/ZIP Co de Phone Number [facility] See order comments or contact performing lab Unknown, [place] * HEMATOLOGY (02/25/2025) Hemoglobin 14.1 14.0 - 18.0 g/dL [facility] Comment: Custom Exception Hemoglobin x 3 42.3 42.0 - 54.0 % [facility] 02/25/2025 02/27/2025 10: 19 AM EST Narrative [facility] - 02/27/2025 Unless otherwise specified, test(s) performed at: [facility], [address] [place] [address] MASTER STEAM YACHT: Andres Taylor M.D. For any questions, please call customer service at FREQUENCY:OTHER Resulting Agency Comment Specimen source: Blood Adam Maldonado MD LAB BLOOD ORDERABLES Final Re sult Performing Organization Address City/[facility]/ZIP Co de Phone Number [facility] See order comments or contact performing lab Unknown, [place] documented in this encounter Visit Diagnoses Not on filedocumented in this encounter Care Teams Horticultural Therapist Relationship Specialty Start Date End Date Darline Simpson MD [address] [place] [address] PCP - General 02/04/19 documented as of this encounter
--- OUTSIDE RECORDS SUMMARY | 2025-03-05 22:12 | XMS_ITS | Encounter Summary ---
Author Organization [facility], Address [address] [place] [address] Phone Care Team Providers Care Mixologist Name Role Phone Darline Simpson MD Primary Care Provider [phone] Encounter Details Date Type Department Care Team (Late st Contact Info) Description 06/16/2021 Documentation Only [facility], [address] [place] [address] Adam Maldonado MD [address] [place] [address] [place] [phone] Social History Tobacco Use Types Packs/Day Years [...] on filedocumented in this encounter Care Teams Mixologist Relationship Specialty Start Date End Date Darline Simpson MD [address] [place] [phone] PCP - General 02/04/19 documented as of this encounter
--- OUTSIDE RECORDS SUMMARY | 2025-03-05 22:12 | XMS_ITS | Encounter Summary ---
Author Organization [facility], Address [address] [place] [address] Phone Care Team Providers Care Literacy Consultant Name Role Phone Darline Simpson MD Primary Care Provider [phone] Encounter Details Date Type Department Care Team (Late st Contact Info) Description 02/18/2025 Orders Only [facility] [address] [place] [address] Adam Maldonado MD [address] [place] [address] [place] [address] Social History Tobacco Use Types Packs/Day Years [...] Priority Date/Time Associated Diagnosis Comments HEMATOLOGY Routine 02/18/2025 CHEMISTRY Routine 02/18/2025 documented in this encounter Results * (ABNORMAL) [facility] (02/18/2025) Potassium 4.0 3.5 - 5.1 mEq/L [facility] Calcium 7.3(L) 8.4 - 10.2 mg/dL [facility] 02/18/2025 02/19/2025 7:5 9 AM EST Narrative [facility] - 02/19/2025 Unless otherwise specified, test(s) performed at: [facility], [address] [place] [address] LETTUCE TRIMMER: Andres Taylor M.D. For any questions, please call customer service at FREQUENCY:OTHER Resulting Agency Comment Specimen source: Serum Adam Maldonado MD LAB BLOOD ORDERABLES Final Re sult Performing Organization Address [facility]/ZIP Co de Phone Number [facility] See order comments or contact performing lab Unknown, [place] * (ABNORMAL) HEMATOLOGY (02/18/2025) Hemoglobin 13.4(L) 14.0 - 18.0 g/dL [facility] Hemoglobin x 3 40.2(L) 42.0 - 54.0 % [facility] 02/18/2025 02/19/2025 8:0 1 AM EST Narrative [facility] - 02/19/2025 Unless otherwise specified, test(s) performed at: [facility], [address] [place] [phone] LETTUCE TRIMMER: Andres Taylor M.D. For any questions, please call customer service at FREQUENCY:OTHER Resulting Agency Comment Specimen source: Blood Adam Maldonado MD LAB BLOOD ORDERABLES Final Re sult Performing Organization Address City/[facility]/ZIP Co de Phone Number [facility] See order comments or contact performing lab Unknown, [place] documented in this encounter Visit Diagnoses Not on filedocumented in this encounter Care Teams Literacy Consultant Relationship Specialty Start Date End Date Darline Simpson MD [address] [place] [address] PCP - General 02/04/19 documented as of this encounter
--- OUTSIDE RECORDS SUMMARY | 2025-03-05 22:12 | XMS_ITS | Encounter Summary ---
Author Organization [employer] Address [address] [place] [address] 7 [place] [address] Care Team Providers Care Machine Shop Worker Name Role Phone Darline Simpson MD Primary Care Provider [phone] Barrington Pérez CNP Primary Care Provider [phone] Reason for Visit * Reason Onset Date Comments PT1 02/19/2023 Encounter Details Date Type Department Care Team ([facility] Contact Info) Description 02/19/2023 Telephone [facility] [address] [place] [address] Darline Simpson MD [address] [place] [address] PT1 Social History Tobacco Use Types Packs/Day [...] 3:45 PM EST PT1 Name of facility: [facility]: [facility] Location: [address] [place] [address] Date: 03/06/2023 Time: 12:00 pm fax: n/a Phone: n/a wheelchair: n/a Gold Letterer: n/a All future Visits documented in this encounter Plan of Treatment Not on file documented as of this encounter Visit Diagnoses Not on filedocumented in this encounter Additional Health Concerns Assessment Noted Time PHQ-9 Depression Total Score: 9 10/27/19 23 9:40 AM EDT documented as of this encounter Care Teams Machine Shop Worker Relationship Specialty Start Date End Date Darline Simpson MD [address] [place] [address] PCP - General Family Medicine 02/20/14 01/28/25 Barrington Pérez CNP [address] [place] [address] PCP - General Family Medicine 01/29/25 documented as of this encounter
--- OUTSIDE RECORDS SUMMARY | 2025-03-05 22:12 | XMS_ITS | Encounter Summary ---
Author Organization [facility], Address [address] [place] [address] Phone Care Team Providers Care Data Entry Name Role Phone Darline Simpson MD Primary Care Provider [phone] Encounter Details Date Type Department Care Team (Late st Contact Info) Description 08/16/2023 Documentation Only [facility], [address] [place] [address] Glenn Flores MD [address] [place] [phone] Social History Tobacco Use Types Packs/Day Years [...] on filedocumented in this encounter Care Teams Data Entry Relationship Specialty Start Date End Date Darline Simpson MD [address] [place] [address] [phone] PCP - General 02/04/19 documented as of this encounter"
--- OUTSIDE RECORDS SUMMARY | 2025-03-05 22:12 | XMS_ITS | Clinical Summary ---
Author Organization [facility], Address [address] [place] [address] Phone Care Team Providers Care Airworthiness Safety Inspector Name Role Phone Darline Simpson MD Primary Care Provider [phone] Allergies Active Allergy Reactions Criticality Noted Date [...] time each day Active ergocalciferol 1.25 MG (69124 UT) capsule Take 50,000 Units by mouth [...] as needed 2 Active ergocalciferol 1.25 MG (16399 UT) capsule Take 1 capsule by mouth [...] Replace Required Details, Route to Pharmacy Electronically, [id number], Partial fill upon patient request if the [...] Encounters Date Type Department Care Team Description 02/25/2025 Orders Only [facility] [address] [address] Adam Maldonado MD 02/20/2025 Treatment [facility] [address] [place] [address] Rosa Mata FNP-Licha End stage renal disease; Dependence on renal dialysis 02/18/2025 Orders Only [facility] [address] [address] Adam Maldonado MD 02/18/2025 Treatment [facility] [address] [place] [address] Glenn Flores MD End stage renal disease; Dependence on renal dialysis 02/13/2025 Treatment [facility] [address] [place] [address] Rosa Mata FNP-C End stage renal disease; Dependence on renal dialysis 02/06/2025 Orders Only [facility] [address] [address] Adam Maldonado MD 02/04/2025 Orders Only [facility] [address] [address] Adam Maldonado MD 02/04/2025 Treatment [facility] [address] [place] [address] Rosa Mata FNP-C End stage renal disease; Dependence on renal dialysis 01/30/2025 Treatment [facility] [address] [place] [address] Glenn Flores MD End stage renal disease; Dependence on renal dialysis 01/28/2025 Orders Only [facility] [address] [address] Adam Maldonado MD 01/28/2025 Treatment [facility] [address] [place] [address] Rosa Mata FNP-C End stage renal disease; Dependence on renal dialysis 01/21/2025 Orders Only [facility] [address] [address] Adam Maldonado MD 01/21/2025 Treatment [facility] [address] [place] [address] Rosa Mata FNP-C End stage renal disease; Dependence on renal dialysis 01/14/2025 Orders Only [facility] [address] [address] Adam Maldonado MD 01/12/2025 Orders Only [facility] [address] [address] Adam Maldonado MD 01/12/2025 Treatment [facility] [address] [place] [address] Rosa Mata FNP-C End stage renal disease; Dependence on renal dialysis 01/07/2025 Orders Only [facility] [address] [address] Adam Maldonado MD 01/05/2025 Orders Only [facility] [address] [address] Adam Maldonado MD 12/31/2024 Orders Only [facility] [address] [address] Adam Maldonado MD 12/26/2024 Treatment [facility] [address] [place] [address] Rosa Mata, [employer]-C End stage renal disease; Dependence on renal dialysis 12/24/2024 Orders Only [facility] [address] [address] Adam Maldonado MD 12/17/2024 Orders Only [facility] [address] [address] Adam Maldonado MD 12/17/2024 Treatment [facility] [address] [place] [address] Glenn Flores MD End stage renal disease; Dependence on renal dialysis 12/15/2024 Orders Only [facility] [address] [address] Adam Maldonado MD 12/12/2024 Treatment [facility] [address] [place] [address] Rosa Mata, [employer]-C End stage renal disease; Dependence on renal dialysis 12/10/2024 Orders Only [facility] [address] [place] [address] Adam Maldonado MD 12/05/2024 Treatment [facility], [address] [place] [address] Rosa Mata, [employer]-C End stage renal disease; Dependence on renal dialysis from Last 3 Months Social History Tobacco Use Types Packs/Day Years Used Date Smoking Tobacco: Former Cigarettes 0 Q uit: 07/12/2014 Smokeless Tobacco: Never Tobacco [...] Priority Date/Time Associated Diagnosis Comments CHEMISTRY Routine 02/25/2025 HEMATOLOGY Routine 02/25/2025 CHEMISTRY Routine 02/18/2025 HEMATOLOGY Routine 02/18/2025 CHEMISTRY Routine 02/06/2025 HD KINETICS Routine 02/04/2025 POST CHEMISTRY Routine 02/04/2025 CHEMISTRY Routine 02/04/2025 IMMUNO CHEMISTRY Routine 02/04/2025 CHEMISTRY Routine 02/04/2025 HEMATOLOGY Routine 02/04/2025 HEMATOLOGY Routine 01/28/2025 CHEMISTRY Routine 01/28/2025 HEMATOLOGY Routine 01/21/2025 CHEMISTRY Routine 01/21/2025 CHEMISTRY Routine 01/14/2025 HEMATOLOGY Routine 01/14/2025 CHEMISTRY Routine 01/12/2025 CHEMISTRY Routine 01/07/2025 HEMATOLOGY Routine 01/07/2025 CHEMISTRY Routine 01/05/2025 HD KINETICS Routine 12/31/2024 POST CHEMISTRY Routine 12/31/2024 TRACE ELEMENTS Routine 12/31/2024 IMMUNO CHEMISTRY Routine 12/31/2024 SPECIAL CHEMISTRY Routine 12/31/2024 CHEMISTRY Routine 12/31/2024 CHEMISTRY Routine 12/31/2024 HEMATOLOGY Routine 12/31/2024 CHEMISTRY Routine 12/24/2024 HEMATOLOGY Routine 12/24/2024 CHEMISTRY Routine 12/17/2024 HEMATOLOGY Routine 12/17/2024 HD KINETICS Routine 12/15/2024 POST CHEMISTRY Routine 12/15/2024 CHEMISTRY Routine 12/15/2024 CHEMISTRY Routine 12/10/2024 HEMATOLOGY Routine 12/10/2024 from Last 3 Months Results * HEMATOLOGY (02/25/2025) Only the most recent of11 resultswithin the time period is included. Hemoglobin 14.1 14.0 - 18.0 g/dL [facility] Comment: Custom Exception Hemoglobin x 3 42.3 42.0 - 54.0 % [facility] 02/25/2025 02/27/2025 10: 19 AM EST Narrative [facility] - 02/27/2025 Unless otherwise specified, test(s) performed at: [facility], [address] [place] [address] AIRWORTHINESS SAFETY INSPECTOR: Andres Taylor M.D. For any questions, please call customer service at FREQUENCY:OTHER Resulting Agency Comment Specimen source: Blood Adam Maldonado MD LAB BLOOD ORDERABLES Final Re sult Performing Organization Address [facility] Co de Phone Number [facility] See order comments or contact performing lab Unknown, [place] * (ABNORMAL) [facility] (02/25/2025) Only the most recent of17 resultswithin the time period is included. Potassium 4.2 3.5 - 5.1 mEq/L [facility] Calcium 7.9(L) 8.4 - 10.2 mg/dL [facility] 02/25/2025 02/27/2025 10: 23 AM EST Narrative [facility] - 02/27/2025 Unless otherwise specified, test(s) performed at: [facility], [address] [place] [address] AIRWORTHINESS SAFETY INSPECTOR: Andres Taylor M.D. For any questions, please call customer service at FREQUENCY:OTHER Resulting Agency Comment Specimen source: Serum Adam Maldonado MD LAB BLOOD ORDERABLES Final Re sult Performing Organization Address [facility] de Phone Number [facility] See order comments or contact performing lab Unknown, [place] * HD KINETICS (02/04/2025) Only the most recent of3 resultswithin the time period is included. % Urea Reduction 68 65 - 80 % [facility] 02/04/2025 02/05/2025 2:5 4 PM EST Narrative Resulting Agency Comment Specimen source: Plasma Adam Maldonado MD LAB BLOOD ORDERABLES Final Re sult Performing Organization Address [facility] Co de Phone Number [facility] See order comments or contact performing lab Unknown, [place] * POST CHEMISTRY (02/04/2025) Only the most recent of3 resultswithin the time period is included. BUN Post Dialysis 17 6 - 19 mg/dL [facility] 02/04/2025 02/05/2025 2:5 4 PM EST Narrative [facility] - 02/05/2025 Unless otherwise specified, test(s) performed at: [facility], [address] [place], [place] [id number] AIRWORTHINESS SAFETY INSPECTOR: Andres Taylor M.D. For any questions, please call customer service at FREQUENCY:MONTHLY Resulting Agency Comment Specimen source: Plasma Adam Maldonado MD LAB BLOOD ORDERABLES Final Re sult Performing Organization Address [facility] de Phone Number [facility] See order comments or contact performing lab Unknown, [place] * IMMUNO CHEMISTRY (02/04/2025) Only the most recent of2 resultswithin the time period is included. Hep B Surface Ag Negative Negative [facility] 02/04/2025 02/05/2025 9:4 6 AM EST Narrative Resulting Agency Comment Specimen source: Serum Adam Maldonado MD LAB BLOOD ORDERABLES Final Re sult Performing Organization Address [facility] de Phone Number [facility] See order comments or contact performing lab Unknown, [place] * SPECIAL CHEMISTRY (12/31/2024) Creatine Kinase (CK/CPK) 194 30 - 223 U/L [facility] Vitamin D, 25-OH, Total 99.2 30.0 - 100.0 ng/mL [facility] Comment: Please Note: Effective January 29, 2023, the methodology for this test has changed to the [facility]. 12/31/2024 01/01/2025 9:5 7 AM EDT Narrative [facility] - 01/01/2025 Unless otherwise specified, test(s) performed at: [facility], [address] [place] [id number] AIRWORTHINESS SAFETY INSPECTOR: Andres Taylor M.D. For any questions, please call customer service at FREQUENCY:MONTHLY Resulting Agency Comment Specimen source: Serum Adam Maldonado MD LAB BLOOD BANK TEST ORDERABLE S Edited Result - Final Performing Organization Address [facility]/ZIP Co de Phone Number [facility] See order comments or contact performing lab Unknown, [place] * TRACE ELEMENTS (12/31/2024) Aluminum <5 0 - 10 mcg/L [facility] Comment: This test was developed and its performance characteristics determined by [facility]. It has not been cleared or approved by the FDA. The laboratory is regulated under CLIA as qualified to perform high complexity testing. This test is used for clinical purposes. It should not be regarded as investigational or for research. 12/31/2024 01/01/2025 9:1 0 AM EDT Narrative [facility] - 01/01/2025 Unless otherwise specified, test(s) performed at: [facility], [address] [place] [id number] AIRWORTHINESS SAFETY INSPECTOR: Andres Taylor M.D. For any questions, please call customer service at FREQUENCY:MONTHLY Resulting Agency Comment Specimen source: Serum Adam Maldonado MD LAB BLOOD ORDERABLES Final Re sult Performing Organization Address [facility] Co de Phone Number [facility] See order comments or contact performing lab Unknown, [place] from Last 3 Months Insurance Medicaid [place] Care Teams Airworthiness Safety Inspector Relationship Specialty Start Date End Date Darline Simpson MD [address] [place] [address] [facility] - General 02/04/19
--- OUTSIDE RECORDS SUMMARY | 2025-03-05 22:13 | XMS_ITS | Clinical Summary ---
Author Organization [facility] Address [address] [place] [address] [address] [place] [address] Care Team Providers Care Web Site Specialist Name Role Phone Beto Yosefchinoshy STANLEY Primary Care Provider [phone] Allergies Active Allergy Reactions Criticality Noted Date Comments Heparin Swelling,Vomiting High 09/19/2017 Other reaction(s): Vomiting Penicillins Swelling High 10/08/2014 Other reaction(s): anaphylaxis, Anaphylaxis Zolpidem Swelling,Other High 10/13/2014 Other reaction(s): edema, Other (see comments) Fluid retention in fingers Medications acetaminophen (Tylenol 8 Hour) 650 MG ER tablet take 1 Tablet by oral route every 8 hours as needed 2 Active aspirin 81 MG EC tablet take 1 tablet by oral route every day 0 Active calcitriol (Rocaltrol) 0.5 MCG capsule take 1 capsule by oral route every day 9 Active Calcium Carbonate-Vitam in D (Liquid Calcium/Vitamin D) 600-5 MG-MCG capsule take 1 tablet by oral route every day 9 Active carvedilol (Coreg) 25 MG tablet take 1 tablet by oral route 2 times every day with food 8 Active phenol (Chloraseptic) 1.4 % liquid Apply one spray to the throat, keep in place 15 seconds, then spit out. Apply every 2 hours as needed 1 Active Oyster Shell Calcium 500 MG tablet TAKE 2 TABLETS BY MOUTH EVERY DAY AT BEDTIME 3 Active Ferric Citrate (Auryxia) 1 GM 210 MG(Fe) tablet Take 630 mg by mouth. 2 Active albuterol (Ventolin HFA) 108 (90 Base) MCG/ACT inhaler Inhale 2 puffs every 4 (four) hours if needed for wheezing. 18 g 3 5 Active Multiple Vitamin (Daily-Chris Multivitamin) tablet Take 1 tablet by mouth in the morning. 90 tablet 3 5 Active Blood Pressure kit Check blood pressure daily 1 kit 5 Active hydrocortisone (Proctosol HC) 2.5 % rectal cream Insert into the rectum if needed in the morning and at bedtime for hemorrhoids. 28 g 1 5 Active witch demi-glycerin (Tucks) pad Apply topically if needed for irritation or hemorrhoids. 96 each 3 5 Active calcium acetate (Phoslo) 667 MG tablet TAKE 1 TABLET (667 MG) BY MOUTH WITH BREAKFAST, WITH LUNCH, AND WITH EVENING MEAL. 270 tablet 5 Active ergocalciferol (Vitamin D2) 1.25 MG (62887 UT) capsule TAKE 1 CAPSULE BY MOUTH ONE TIME PER WEEK 12 capsule 5 Active B Ndecuts-K-Rhkci Acid (Lupe-Chris) tablet TAKE 1 TABLET BY MOUTH EVERY DAY 90 tablet 5 Active Fermin-Gest Antacid 500 MG chewable tablet CHEW 2 TABLETS BY MOUTH 3 TIMES A DAY WITH FOOD 5 Active fludrocortisone (Florinef) 0.1 MG tablet TAKE 1 TABLET BY MOUTH EVERY DAY IN THE MORNING ON DIALYSIS DAYS NEEDED Active midodrine (Proamatine) 5 MG tablet TAKE 1 TABLET BY MOUTH THREE TIMES A DAY FOR LOW BLOOD PRESSURE Active spironolactone (Aldactone) 25 MG tablet Take 1 tablet by mouth. 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 He undergoes hemodialysis on Sunday and Sunday at the [facility] kidney center in [facility], via a left arm AV fistula. Hemorrhoids 10/28/2024 Overview (10/28/2024): Referred to surg Cont Prep H Hyperphosphatemia 03/13/2023 Hyperparathyroidism 10/26/2022 Chronic congestive heart failure 12/18/2019 Dependence on renal dialysis 12/18/2019 End stage renal disease 12/18/2019 Focal segmental glomerulosclerosis 12/18/2019 Hyperlipidemia 12/18/2019 History of alcohol abuse 12/18/2019 Gastritis 12/18/2019 Asthma 12/18/2019 Edema 12/18/2019 Hypertensive disorder 12/18/2019 Intravenous drug user 12/18/2019 Proteinuria 12/18/2019 Supraventricular tachycardia 12/18/2019 Essential hypertension 10/08/2014 Insomnia 10/08/2014 Restless leg syndrome 10/08/2014 Stage 4 chronic kidney disease (CMS/HCC) 015 Encounters Date Type Department Care Team Description 02/19/2025 11:00 AM EST Office Visit [facility] [address] [place] [address] Barrington Pérez CNP Sebaceous cyst of scrotum (Primary Dx) 02/19/2025 Travel 02/12/2025 Telephone [facility] [address] [place] [address] Barrington Pérez CNP chart prep 02/12/2025 Telephone [facility] MEDICINE [address] [place] [address] Barrington Pérez CNP Nurse Triage 01/28/2025 Refill [facility] [address] [place] [address] Ashlie Kunz MD 01/25/2025 Refill [facility] [address] [place] [address] Melly Lui MD 01/05/2025 Refill [facility] [address] [place] [address] Darline Simpson MD 12/09/2024 Refill [facility] [address] [place] [address] Melly Lui MD 12/04/2024 2:00 PM EDT Office Visit [facility] [address] [facility] [place] [phone] Melly Lui MD Dependence on renal dialysis ([facility]) (Primary Dx); Dental abscess 12/04/2024 Refill [facility] [address] [facility] [place] [id number] Melly Lui MD 12/04/2024 Travel 12/04/2024 Telephone [facility] MED[facility] [address] [place], [place] [phone] Darline Simpson MD Nurse Triage from Last 3 Months Immunizations Immunization Administration Dates Next Due INFLUENZA VACCINE QUADRIVALE NT RECOMBINANT PRESERVATIVE FREE RIV4 01/15/2023 Influenza injectable quadriv alent IIV4 with preservative 01/05/2015 Influenza injectable quadriv alent preservative free 01/14/2021,01/04/2020 Influenza, IIV3, injectable 01/03/2011 Influenza, seasonal, injecta ble, preservative free 01/15/2024 Pfizer Covid-19 Vaccine 12+ dolly-sucrose (Diaz Cap) 07/20/2021 Pfizer Covid-19 Vaccine 5-11 02/25/2021,07/15/19 21,06/22/2020 Pneumococcal [...] Sign Reading Time Taken Comments Blood Pressure 100/60 02/19/2025 10:52 AM EST Pulse 80 02/19/2025 10:52 AM EST Temperature 36.1 C (97 F) 02/19/2025 10:52 AM EST Respiratory Rate 20 02/19/2025 10:52 AM EST Oxygen Saturation 99% 02/19/2025 10:52 AM EST Inhaled Oxygen Concentration - - Weight 67.6 kg (149 lb) 02/19/2025 10:52 AM EST Height 172 cm (5' 7.72 ) 02/19/2025 10:52 AM EST Body Mass Index 22.84 02/19/2025 10:52 AM EST Plan of Treatment Health Maintenance Due Date Last Done Comments CT Colonography 1974 Colonoscopy 1974 Colorectal Cancer Screening 1974 FIT DNA/Cologuard 1974 FIT 1974 FOBT 1974 HIV Screening 1974 Sigmoidoscopy 1974 Family Planning (PISQ) 1989 Hepatitis C Screening 1992 Hepatitis B Vaccines (1 of 3 - 19+ 3-dose series) 1993 RSV Patients and Patients Aged 60 years or older (1 - Risk 50-74 years 1-dose series) 2024 Zoster Vaccines (1 of 2) 2024 COVID-19 Vaccine (2 - season) 2024 07/20/2021, 02/25/2021, 07/14/2020, Additional history exists Influenza Vaccine (#1) 2024 , 01/15/2023, 01/14/2021, Additional history exists SDOH Screening 04/22/2025 04/22/2024 Depression Screening 10/28/2025 10/28/2024, 10/29/19 Disability Screening 10/28/2025 10/28/2024 Tobacco Screening 10/28/2025 10/28/2024 Alcohol/Substance Use Screening 02/19/2026 02/19/2025 DTaP/Tdap/Td Vaccines (3 - Td or Tdap) 10/24/2027 10/23/2017, 01/09/2013 Lipid Panel 01/21/2029 01/22/2024 Pneumococcal Vaccine: 50+ Years Completed 10/28/2024, 01/03/2011 [...] 2:08 PM EDT) Triglycerides 200(H) <150 mg/dL [facility] Comment:Desirable Triglyceri de: less than 150 mg/dLBorderline High Triglyceride 150-199 mg/dLHigh Triglyceride: 200-499 mg/dLVery High Triglyceride: greater than or equal to 5OO mg/dL Cholesterol 193 <200 mg/dL [facility] Comment:Desirable Cholestero l: less than 200 mg/dLBorderline High Cholesterol: 200-239 mg/dLHigh Cholesterol: greater than 239 mg/dL LDL Cholesterol Calculated 106(H) <100 mg/dL [facility] Comment:Desirable LDL: less than 100 mg/dLNear Optimal/Above Optimal LDL: 110- 129 mg/dLBorderline High LDL: 130-159 mg/dLHigh LDL: 160-189 mg/dLVery High LDL: greater than or equal to 190 mg/dL HDL Cholesterol 47 >40 mg/dL [facility] Comment:Desirable HDL: great er than 40 mg/dL Note: This HDL assay may give artificially low results in patients with liver disease. Blood Venous blood specimen / Unknown 01/22/2024 2:08 PM EDT 01/22/2024 5:37 PM EDT us Darline Simpson MD LAB BLOOD ORDERABLES Final Resul t [facility] [address] [place] [address] [phone] from Last 3 Months or Most Recently Relevant to Health Maintenance Insurance [facility] C3 [place] [id number] [place] [id number] [place] [id number] Care Teams Web Site Specialist Relationship Specialty Start Date End Date Barrington Pérez CNP [address] [place] [address] [place]ANCHE[place] [address] PCP - General Family Medicine 01/29/25
--- OUTSIDE RECORDS SUMMARY | 2025-03-05 22:13 | XMS_ITS | Encounter Summary ---
Author Organization [facility] Address [address] [place] [address] 7 [place] [address] Care Team Providers Care Lead Trainer Name Role Phone Darline Simpson MD Primary Care Provider [phone] Barrington Pérez CNP Primary Care Provider [phone] Reason for Visit * Reason Comments Med Change Request Encounter Details Date Type Department Care Team ([facility] Contact Info) Description 01/25/2025 Refill [facility] MED [facility] PEDS [address] [place] [address] Melly Lui MD [address] [place] [address] Social History Tobacco Use Types Packs/Day Years [...] documented as of this encounter Care Teams Lead Trainer Relationship Specialty Start Date End Date Darline Simpson MD [address] [place] [address] PCP - General Family Medicine 02/20/14 01/28/25 Barrington Pérez CNP [address] [place] [address] PCP - General Family Medicine 01/29/25 documented as of this encounter
--- OUTSIDE RECORDS SUMMARY | 2025-03-05 22:13 | XMS_ITS | Encounter Summary ---
Author Organization [employer] Address [address] [place] [address] [address] [place] [address] Care Team Providers Care Dip Filler Name Role Phone Darline Simpson MD Primary Care Provider [phone] Barrington Pérez CNP Primary Care Provider [phone] Reason for Visit * Reason Comments Med Refill Encounter Details Date Type Department Care Team ([facility] Contact Info) Description 11/30/2024 Refill [facility]S [address] [place] [address] Darline Simpson MD [address] [place] [address] Social History Tobacco Use Types Packs/Day Years [...] documented as of this encounter Care Teams Dip Filler Relationship Specialty Start Date End Date Darline Simpson MD [address] [place] [address] PCP - General Family Medicine 02/20/14 01/28/25 Barrington Pérez CNP [address] [place] [address] PCP - General Family Medicine 01/29/25 documented as of this encounter
--- OUTSIDE RECORDS SUMMARY | 2025-03-05 22:13 | XMS_ITS | Encounter Summary ---
Author Organization [employer] Address [address] [place] [address] [address] [place] [address] Care Team Providers Care Inside Plant Supervisor Name Role Phone Darline Simpson MD Primary Care Provider [phone] Barrington Pérez CNP Primary Care Provider [phone] Reason for Visit * Reason Comments Med Change Request Encounter Details Date Type Department Care Team ([facility] Contact Info) Description 12/09/2024 Refill [facility] MED & PEDS [address] [place] [address] Melly Lui MD [address] [place] [address] Social History Tobacco Use Types Packs/Day Years [...] documented as of this encounter Care Teams Inside Plant Supervisor Relationship Specialty Start Date End Date Darline Simpson MD [address] [place] [address] PCP - General Family Medicine 02/20/14 01/28/25 Barrington Pérez CNP [address] [place] [address] PCP - General Family Medicine 01/29/25 documented as of this encounter
== END 2025-03-05 17:24 | disposition home or self-care (01) ==
PROVIDERS: Physician Assistant; Emergency Provider Emergency Medicine
DX: N50.89 Other specified disorders of the male genital organs (principal); N50.82 Scrotal pain; I12.0 Hypertensive chronic kidney disease with stage 5 chronic kidney disease or end stage renal disease; N18.6 End stage renal disease; Z99.2 Dependence on renal dialysis; Z79.899 Other long term (current) drug therapy; Z87.891 Personal history of nicotine dependence
CPT/HCPCS: 36415; 76870; 80053; 85025; 93975; 99282; 99284

== ENCOUNTER → 2025-03-05 14:24 | Outpatient (BNV) | payer MEDICAID, SELFPAY | PROVIDERS: Visit Provider Radiology Diagnostic Radiology | DX: N44.2 Benign cyst of testis (principal) | CPT/HCPCS: 76870; 93975 ==